=== PATIENT | male | born 1955 | race Caucasian/White ===

== ENCOUNTER → 2020-06-30 08:57 | Outpatient (CLI) | payer OTHER, SELFPAY ==
--- NOTE | ~2020-06-30 | XR_ITS ---
EXAMINATION: XR chest 2V 06/30/2020 09:28 INDICATION: Dyspnea. PROCEDURE: 2 view chest COMPARISON: 02/21/2008 FINDINGS: The lungs are clear. The cardiomediastinal silhouette is within normal limits. There are no pleural effusions. There is no pneumothorax suspected. IMPRESSION: 1: NO ACUTE CARDIOPULMONARY DISEASE. Reviewed, dictated and finalized at location A. 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
== END ==
PROVIDERS: Visit Provider Nurse Practitioner Family
DX: R06.00 Dyspnea, unspecified (principal)
CPT/HCPCS: 71046

== ENCOUNTER 2020-06-30 11:27 | Outpatient (NON) | payer OTHER, SELFPAY ==
[2020-07-01 17:19] LABS: SARS-CoV-2 RNA PCR Negative
== END 2020-06-30 11:28 ==
PROVIDERS: Visit Provider Nurse Practitioner Family
DX: R68.89 Other general symptoms and signs (principal); Z20.828 Contact with and (suspected) exposure to other viral communicable diseases
CPT/HCPCS: 87635; C9803; U0003

== ENCOUNTER 2022-10-08 04:47 | Emergency (ER) | payer OTHER, SELFPAY ==
[2022-10-08] VITALS (14 sets, daily range): BP systolic 131–143; BP diastolic 75–86; PULSE 77–106; RESP 12–24; TEMP 36.4; O2SAT 93–98
[2022-10-08 05:24] LABS: Basophils Percent Auto 0.3 % (0.2-1.2); Eosinophils Absolute Auto 0.2 K/mm3 (0-0.3); Eosinophils Percent Auto 1.9 % (0-4.4); Hematocrit 44.7 % (42.0-52.0); Hemoglobin 15.4 g/dL (14.0-18.0); Immature Granulocyte Absolute 0.05 K/mm3 (0.00-0.031); Immature Granulocyte Percent A 0.5 % (0-0.5); Lymphocytes Absolute Auto 2.08 K/mm3 (0.9-3.2); Lymphocytes Percent Auto 21.4 % (18.3-44.2); Mean Corpuscular HGB Conc 34.5 g/dl (32-36); Mean Corpuscular Hemoglobin 31.4 pg (26-34); Mean Platelet Volume 10.5 fl (7.4-10.4); Monocytes Absolute Auto 1.6 K/mm3 (0.1-0.6); Monocytes Percent Auto 16.5 % (2.6-8.5); Neutrophils Absolute Auto 5.8 K/mm3 (1.3-6.7); Neutrophils Percent Auto 59.4 % (45.5-73.1); Platelet Count Result 293 k/mm3 (150-375); Red Blood Count 4.91 M/mm3 (4.6-6.20); Red Cell Distribution Width 13.1 % (11.5-14.5); White Blood Count 9.7 K/mm3 (4.5-10.0)
[2022-10-08] MEDS: ONDANSETRON INJ 4 MG/2 ML VIAL IV PUSH (05:28)
[2022-10-08] MEDS: SODIUM CHLORIDE 0.9% IV 1,000 ML 999 ML IV CONT (05:28)
[2022-10-08 05:33] LABS: Alanine Aminotransferase 40 U/L (6-50); Albumin Level 4.6 g/dL (3.5-5.1); Alkaline Phosphatase 72 U/L (38-126); Anion Gap 10 mmol/L (8-16); Aspartate Amino Transferase 32 U/L (17-59); Bilirubin,Total 1.4 mg/dL (0.2-1.3); Blood Urea Nitrogen 31 mg/dL (9-20); Calcium 8.3 mg/dL (8.4-10.2); Carbon Dioxide 20 mmol/L (22-30); Chloride 102 mmol/L (98-107); Estimated CRCL calculation 49 ml/min; Estimated Glomerular Filt Rate 51; Glucose 147 mg/dL (65-110); Lipase 93 U/L (23-300); Potassium 4.1 mmol/L (3.4-5.0); Sodium 132 mmol/L (137-145)
--- NOTE | 2022-10-08 06:09 | ED.GENADULT ---
HPI - General Adult General Chief complaint: Nausea/Vomiting/Diarrhea Stated complaint: diarrhea Time Seen by Provider: 10/08/22 05:11 History of Present Illness HPI narrative: Patient 66-year-old gentleman who presents the emergency department with chief complaint of nausea vomiting and diarrhea. The patient reports that he started having diarrhea that he ate some cheese pizza then later on ate a fish sandwich from [employer]. The patient states that he has had multiple bouts of diarrhea and has had some nausea and has had a couple bouts of emesis. Related Data Allergies Allergy/AdvReac Type Severity Reaction Status Date / Time erythromycin base Allergy Unknown Unknown Verified 04/20/22 07:58 Review of Systems Review of Systems: A 10 system review of systems was completed on the patient and is negative except for what is stated in the HPI. Nursing and ancillary documentation was reviewed. FORMERLY [facility], [facility] Past Medical History Medical History BMI 31.0-31.9,adult BMI 32.0-32.9,adult Elevated blood pressure reading Screening PSA (prostate specific antigen) Screening, lipid Family History Family History Father Hypertension Family history of malignant neoplasm Carcinoma of colon Mother Macular degeneration Sibling Acute myocardial infarction Other Cerebrovascular accident Diabetes mellitus Family history of coronary artery disease Social History Social History Smoking packs per day: 0.5 Smoking cigarettes per day: 10.0 Years smoked: 5 Smoking pack-years: 2.50 Smoking status: Former smoker Tobacco type: cigarettes Second hand tobacco smoke exposure: No Alcohol intake: current Substance use: never Substance use type: does not use Living arrangements: alone Occupation/Education: occupation 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 HEAD: Normocephalic, atraumatic. EYES: PERRLA and EOMI. ENT: Nares clear, no rhinorrhea or epistaxis. Mucous membranes moist. NECK: Supple. CHEST: Clear to auscultation. No respiratory distress. HEART: Regular rate and rhythm. No murmur heard. Normal peripheral pulses. ABDOMEN: Soft, nontender, nondistended, normal active bowel sounds. EXTREMITIES: Normal range of motion. No edema. SKIN: Warm, dry, no rash. NEURO: No focal deficits. Alert and oriented x3. PSYCH: Normal mood and affect. Course Vital Signs Vital signs: Vital Signs Temperature 36.4 C 10/08/22 04:48 Pulse Rate 106 H 10/08/22 04:48 Respiratory Rate 16 10/08/22 04:48 Blood Pressure 137/81 10/08/22 04:48 Pulse Oximetry 97 10/08/22 04:48 Oxygen Delivery Room Air 10/08/22 04:48 Temperature 36.4 C 10/08/22 04:48 Pulse Rate 86 10/08/22 05:45 Respiratory Rate 19 10/08/22 05:45 Blood Pressure 138/81 10/08/22 05:36 Pulse Oximetry 95 10/08/22 05:45 Oxygen Delivery Room Air 10/08/22 04:48 Medical Decision Making [facility] Narrative Medical decision making narrative: Differential diagnosis includes gastroenteritis, intra-abdominal infection colitis diverticulitis appendicitis. Laboratory studies were obtained which showed a normal white blood cell count electrolytes showed a creatinine of 1.4 bilirubin was slightly elevated. Patient received IV fluids antiemetics This time patient's exam is not consistent with appendicitis laboratory studies showed a normal white blood cell count this also was not pointing toward appendicitis and more inconsistent with acute gastroenteritis. Vital Signs Vital Signs: Vital Signs Temperature 36.4 C 10/08/22 04:48 Pulse Rate 106 H 10/08/22 04:48 Respiratory Rat
== END 2022-10-08 06:50 | disposition home or self-care (01) ==
PROVIDERS: Emergency Provider Emergency Medicine; PCP Family Medicine
DX: K52.9 Noninfective gastroenteritis and colitis, unspecified (principal); Z87.891 Personal history of nicotine dependence
CPT/HCPCS: 36415; 80053; 83690; 85025; 96361; 96374; 99284; J2405; J7030

== ENCOUNTER 2022-11-30 01:02 | Day surgery (SDC) | payer OTHER, SELFPAY ==
[2022-11-16 12:35] VITALS: BMI 32.3
--- NOTE | 2022-11-29 14:39 | PM.HPGS ---
History of Present Illness History of Present Illness Consent: Risks, benefits, and alternatives have been discussed and questions answered. Patient agrees to proceed with procedure. Chief complaint: other fecal abnormalities Narrative: Shukri Smith is a 67 year old male Referred for colon cancer screening. He was found have a positive Cologuard test Review of Systems Review of Systems: All systems reviewed & are unremarkable except as noted in HPI and below PMFSH Past Medical History Medical History BMI 31.0-31.9,adult BMI 32.0-32.9,adult Elevated blood pressure reading Screening PSA (prostate specific antigen) Screening, lipid Family History Family History Father Hypertension Family history of malignant neoplasm Carcinoma of colon Mother Macular degeneration Sibling Acute myocardial infarction Other Cerebrovascular accident Diabetes mellitus Family history of coronary artery disease Social History Social History Smoking packs per day: 0.5 Smoking cigarettes per day: 10.0 Years smoked: 5 Smoking pack-years: 2.50 Smoking status: Never smoker Tobacco type: cigarettes Second hand tobacco smoke exposure: No Alcohol intake: current Alcohol use details: rare Substance use: never Substance use type: does not use Living arrangements: with family Occupation/Education: occupation 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 Gender identity (if verbalized by the patient): Male Spiritual care concerns: No Meds Home Medications and Allergies Home Medications Medication Instructions Recorded Confirmed Type losartan 100 1 tablet PO DAILY #90 tabs 06/30/20 11/16/22 Rx mg-hydrochlorothiazide 25 mg tablet (Hyzaar) valacyclovir 1 gram tablet 2,000 mg PO Q12H #4 tabs 09/10/20 11/16/22 Rx (Valtrex) metoprolol succinate 200 mg See Rx Instructions .Route 08/30/21 11/16/22 Rx tablet,extended release 24 hr .COMPLEX #90 tabs tadalafil 20 mg tablet See Rx Instructions .Route 07/06/22 11/16/22 Rx .COMPLEX #30 tabs ondansetron 4 mg disintegrating 4 mg PO Q8H PRN nausea and 10/08/22 11/16/22 Rx tablet vomiting #10 tabs Allergies Allergy/AdvReac Type Severity Reaction Status Date / Time erythromycin base Allergy Unknown Unknown Verified 11/30/22 09:14 Exam Const: General: alert Orientation/consciousness: patient oriented x3 Resp: Auscultation: clear to auscultation bilaterally Cardio: Rhythm: regular rhythm GI: GI Palp: Yes Soft to palpation and No Tenderness to palpation present (GI) Neuro: General: patient oriented x3 Assessment and Plan Assessment and plan (1) Screening for colon cancer: Code(s): Z12.11 - Encounter for screening for malignant neoplasm of colon Status: Acute Assessment and Plan: Colonoscopy with possible biopsy or polypectomy or cautery or injection of substances. (2) Positive colorectal cancer screening using Cologuard test: Code(s): R19.5 - Other fecal abnormalities Status: Acute
[2022-11-30 09:15] VITALS: BP 143/76; PULSE 81; RESP 20; TEMP 35.7; O2SAT 98
[2022-11-30] MEDS: LACTATED RINGERS 1,000 ML 150 ML IV CONT (09:24)
[2022-11-30 10:44] VITALS: BP 102/52; PULSE 60; RESP 16; O2SAT 94
[2022-11-30 10:54] VITALS: BP 113/50; PULSE 54; RESP 18; O2SAT 98
[2022-11-30 11:04] VITALS: BP 117/78; PULSE 52; RESP 18; O2SAT 98
== END 2022-11-30 11:16 | disposition home or self-care (01) ==
PROVIDERS: PCP Family Medicine; Visit Provider Internal Medicine Gastroenterology
PROC: 0DJD8ZZ Inspection of Lower Intestinal Tract, Via Natural or Artificial Opening Endoscopic (ICD-10-PCS; CPT 45378; principal; 2022-11-30 10:30)
DX: R19.5 Other fecal abnormalities (principal); K57.30 Diverticulosis of large intestine without perforation or abscess without bleeding; K64.8 Other hemorrhoids; R03.0 Elevated blood-pressure reading, without diagnosis of hypertension
CPT/HCPCS: 45378; J2704; J7120

== ENCOUNTER 2023-11-13 11:39 | Outpatient (CLI) | payer MEDICARE, SELFPAY ==
--- NOTE | ~2023-11-13 | XR_ITS ---
Lumbosacral Spine: AP and lateral views Clinical History: Pain Findings: The normal lordotic curve is maintained. The vertebral bodies and posterior elements are i ntact. The intervertebral disc spaces are preserved. Mild to moderate facet arthropathy present, par ticularly the lower lumbar spine. The sacroiliac joints are normally outlined. Impression: Mild to moderate facet joint degenerative changes, as above. Reviewed, dictated and finalized at location M. Impression: Mild to moderate facet joint degenerative changes, as above.
== END 2023-11-13 11:40 | disposition home or self-care (01) ==
LOC: ANHIMG 11:42
PROVIDERS: PCP Family Medicine; Visit Provider Physician Assistant Medical
DX: M54.50 Low back pain, unspecified (principal); M85.88 Other specified disorders of bone density and structure, other site
CPT/HCPCS: 72100

== ENCOUNTER 2024-03-06 13:55 | Outpatient (CLI) | payer MEDICARE, SELFPAY ==
--- NOTE | ~2024-03-06 | MR_ITS ---
EXAMINATION: MR lumbar spine wo con DATE: 03/06/2024 14:27 INDICATION: Radiculopathy, lumbar region. TECHNIQUE: Magnetic resonance imaging (MRI) of the lumbar spine was performed without intravenous con trast. Sequences included sagittal T2-weighted FSE, sagittal T2-weighted FS FSE, sagittal T1-weighted FSE, and axial T2-weighted FSE. COMPARISON: Lumbar spine MRI 04/14/13 FINDINGS: Alignment is normal. There is mild chronic anterior wedging of T11 and T12 vertebral bodies . There is mildly decreased disc height at L4-5 and L5-S1. The distal spinal cord signal intensity is normal. The conus medullaris is at L1-L2. Partially visualized are cysts in the kidneys measuring up to at least 7 cm on the left. The following disc levels are specifically discussed: L1-L2: The disc does not extend beyond the endplate margin. There is moderate right and severe left f acet joint osteoarthritis. There is no neural foraminal stenosis. There is no central canal stenosis. L2-L3: There is a right foraminal protrusion. There is severe right and moderate left facet joint ost eoarthritis. There is mild right neural foraminal stenosis. There is no central canal stenosis. L3-L4: The disc is bulging. There is moderate bilateral facet joint osteoarthritis. There is mild bong ateral neural foraminal stenosis. There is no central canal stenosis. L4-L5: The disc is bulging and has an annular fissure. There is severe bilateral facet joint osteoart hritis. There is mild bilateral neural foraminal stenosis. There is mild central canal stenosis. L5-S1: There is a central protrusion with annular fissure. There is mild bilateral facet joint osteoa rthritis. There is mild left neural foraminal stenosis. There is mild central canal stenosis. IMPRESSION: 1. Mild lumbar spondylosis, worsened from 04/14/2013. Reviewed, dictated and finalized at location A.
== END 2024-03-06 13:56 ==
LOC: GOSHIMG 13:56
PROVIDERS: PCP Anesthesiology Pain Medicine; Visit Provider Anesthesiology Pain Medicine
DX: M47.817 Spondylosis without myelopathy or radiculopathy, lumbosacral region (principal); M54.16 Radiculopathy, lumbar region
CPT/HCPCS: 72148

== ENCOUNTER 2024-04-15 08:26 | Day surgery (SDC) | payer MEDICARE, SELFPAY ==
[2024-04-01 11:18] VITALS: BMI 31.3
--- NOTE | ~2024-04-15 | XR_ITS ---
EXAMINATION: XR fluoroscopy no charge DATE: 04/15/2024 9:25 CDT INDICATION: SHAGGY L3,L4 ,L5 NERVE BLOCK . TECHNIQUE: 10 fluoroscopic images of the lumbar spine were obtained during bilateral L3, L4, and L5 n erve block, performed by Moustapha Jimenez MD. I was not present during the procedure. Fluoroscopy exp osure time was 14.2 seconds. Air Kerma 4.40 mGy. COMPARISON: None FINDINGS/IMPRESSION: Fluoroscopic documentation of bilateral L3, L4, and L5 nerve block. Please refer to the operative not e for complete procedural details . Reviewed, dictated and finalized at location K.
--- NOTE | 2024-04-15 05:46 | WPDHPUPDATE1 ---
History and Physical Update Update Date/Time: 04/15/24 05:46 History and Physical has been reviewed, including an updated exam of the patient. There are NO changes in the patient's condition. Risks, benefits, and alternatives have been discussed and questions answered. Patient agrees to proceed with procedure.
--- NOTE | 2024-04-15 05:47 | W.PM.PROC2 ---
Procedure Note - Detailed Date of Procedure 04/15/24 Pre-op Diagnosis Lumbosacral Spondylosis, chronic low back pain Post-op Diagnosis Same Procedure Performed Diagnostic bilateral Lumbar Medial Branch/Dorsal Ramus Blocks at L3, L4, L5 Treating the bilateralL4-5, L5-S1 Facet Joints Under Fluoroscopic Guidance and with Contrast Control. ( 4 levels blocked). Surgeon Moustapha Jimenez MD Director Of Clinical Education None. Anesthesia Local Description of Procedure INFORMED CONSENT: Risks, benefits and alternatives to the procedure were discussed in detail with the patient who expressed explicit understanding and consent to proceed. Patient was informed verbally and in written form regarding the risks associated with the procedure including the low risk of serious infection, bleeding/bruising, allergic reaction, nerve or organ injury, paralysis, procedural site pain or discomfort, worsening pain and/or mobility, failure to treat and/or disfigurement. The patient expressed explicit understanding and consent to proceed. All materials required for the procedure were available prior to procedure start. Site and side were marked prior to procedure and confirmed in the presence of the patient. PROCEDURE IN DETAIL: The patient was brought to the procedural suite and placed in the prone position. Patient was made comfortable with use of pillows under the head/chest, hips and ankles. Skin overlying the injection site on the affected side(s) was prepared broadly with ChloraPrep applicator and draped in a sterile manner. Aseptic technique was used throughout. The endplates of the vertebral bodies at the site(s) of interest were aligned in the AP view. Ipsilateral oblique angulation was utilized to optimize visualization of the intersection between the superior articulating process and transverse process at each target site. Local anesthesia was established by infiltration with approximately 5 mL of 1% lidocaine via a 1-1/2 inch 27-gauge needle. A 25-gauge 3.5 inch Quincke spinal needle was advanced until the needle tip contacted periosteum at the target site, right L3. Lateral view was utilized to confirm the appropriate placement of the needle tip just anterior to the facet line and superior to the pedicle. In the Lateral view, 0.25 mL of Omnipaque 300 contrast medium was injected after negative aspiration for CSF, blood or other bodily fluid, showing appropriate extra-articular spread of contrast without evidence of intravascular, foraminal or intrathecal placement. A 0.5 mL solution of 0.5% PF bupivacaine was injected after negative repeat aspiration. Appropriate spread of the injectate was confirmed with washout of previously injected contrast. No parasthesias were elicited. Needle was removed completely intact without difficulty. [The same exact procedure was repeated for all remaining levels on the ipsilateral side, right L4, L5 medial branches/dorsal ramus, modified as necessary to accommodate for the new target location with identical findings and results and no evidence of complication.] [The same exact procedure was repeated for all remaining levels on the contralateral side, left L3, L4, L5 medial branches/dorsal ramus, modified as necessary to accommodate for the new target location with identical findings and results and no evidence of complication.] Images were saved and documented in the patient chart. Patient's skin was cleaned and sterile bandage applied. The patient tolerated the procedure well. The patient was transported to the recovery area in stable condition where they were observed for an appropriate amount of time prior to discharge, without evidence of complication. Patient was instructed on the appropriate completion of a pain diary over the next 12-24 hours. The patient was instructed to avoid excessive activity for the next 48 hours, including climbing and frequent use of stairs. Showers only for 48 hours. They were instructed not to drive or operate heavy machinery f
[2024-04-15 08:50] VITALS: BP 132/84; PULSE 59; RESP 16; TEMP 36.9; O2SAT 98
[2024-04-15 09:27] VITALS: BP 147/84; PULSE 64; RESP 14; O2SAT 96
[2024-04-15 09:37] VITALS: BP 181/81; PULSE 68; RESP 13; O2SAT 95
[2024-04-15] MEDS: BUPivacaine HCL 0.5% 10 ML AMP 5 ML INFILTRATE (09:39)
[2024-04-15] MEDS: LIDOCAINE HCL 1% PF INJ 5 ML VIAL 3 ML INFILTRATE (09:39)
[2024-04-15 09:43] VITALS: BP 130/77; PULSE 59; RESP 16; O2SAT 100
== END 2024-04-15 09:56 | disposition home or self-care (01) ==
PROVIDERS: PCP Family Medicine; Visit Provider Anesthesiology Pain Medicine
PROC: (CPT 64493; principal; 2024-04-15 09:30)
DX: M47.817 Spondylosis without myelopathy or radiculopathy, lumbosacral region (principal); M54.59 Other low back pain
CPT/HCPCS: 64493 ×2; 64494 ×2; 99199

== ENCOUNTER 2024-05-27 07:42 | Day surgery (SDC) | payer MEDICARE, SELFPAY ==
[2024-05-15 13:29] VITALS: BMI 31.4
--- NOTE | ~2024-05-27 | XR_ITS ---
EXAMINATION: XR fluoroscopy no charge DATE: 05/27/2024 09:14 INDICATION: Lumbosacral stenosis with radiculopathy. TECHNIQUE: 31 intraoperative fluoroscopic views of the lumbar spine were obtained. I was not present. Fluoroscopy exposure time was 13 seconds. COMPARISON: None. FINDINGS: [place] are seen for right lumbosacral transforaminal epidural steroid injections at L5-S1 and S1-S2. IMPRESSION: 1. Right lumbosacral transforaminal epidural steroid injections at L5-S1 and S1-S2. Reviewed, dictated and finalized at location A. P IMPRESSION: 1. Right lumbosacral transforaminal epidural steroid injections at L5-S1 and S1 -S2.
--- NOTE | 2024-05-27 05:23 | WPDHPUPDATE1 ---
History and Physical Update Update Date/Time: 05/27/24 05:23 History and Physical has been reviewed, including an updated exam of the patient. There are NO changes in the patient's condition. Risks, benefits, and alternatives have been discussed and questions answered. Patient agrees to proceed with procedure.
--- NOTE | 2024-05-27 05:23 | W.PM.PROC2 ---
Procedure Note - Detailed Date of Procedure 05/27/24 Pre-op Diagnosis lumbosacral stenosis with radiculopathy. Post-op Diagnosis Same Procedure Performed Right Lumbosacral Transforaminal Epidural Steroid Injection under Fluoroscopic Guidance and with Contrast Control at L5-S1, S1-S2. Surgeon Moustapha Jimenez MD Anesthesia Local Description of Procedure INFORMED CONSENT: Risks, benefits and alternatives to the procedure were discussed in detail with the patient who expressed explicit understanding and consent to proceed. Patient was informed verbally and in written form regarding the risks associated with the procedure including the low risk of serious infection, bleeding/bruising, allergic reaction, nerve or organ injury, paralysis, procedural site pain or discomfort, worsening pain and/or mobility, failure to treat and/or disfigurement. The patient expressed explicit understanding and consent to proceed. All materials required for the procedure were available prior to procedure start. Site and side was marked prior to procedure and confirmed in the presence of the patient. PROCEDURE IN DETAIL: The patient was brought to the procedural suite and placed in the prone position. Patient was made comfortable with use of pillows under the head/chest, hips and ankles. Skin overlying the injection site was prepared broadly with ChloraPrep applicator and draped in a sterile manner. Aseptic technique was employed throughout. The endplates of the vertebral body at the site of interest were aligned in the AP view. Ipsilateral oblique angulation was utilized to better visualize the neuroforamen of interest. Local anesthesia was established by infiltration with approximately 5 mL of 0.5% PF lidocaine via a 1-1/2 inch 27-gauge needle. A 22-gauge 3.5 inch Katie (pencil point) spinal needle was advanced until the needle approached the 6 o'clock position on the pedicle just superior to the exiting nerve root. on the right at L5-S1. Lateral view was utilized to confirm appropriate position of the needle tip within the superior and posterior portion of the respective foramen. In an AP view, 1 mL of Omnipaque 300 contrast medium was injected after negative aspiration for CSF, blood or other bodily fluid, showing appropriate neurogram without evidence of intravascular or intrathecal spread of contrast. Digital subtraction imaging was used with an additional 1ml of the same contrast medium to confirm absence of intravascular contrast spread. A 1mL solution containing 3 mg of betamethasone was injected after negative repeat aspiration. Appropriate spread of the injectate was confirmed with washout of previously injected contrast. No parasthesias were elicited. Needle was removed completely intact without difficulty. The same exact procedure was repeated for all remaining levels on the ipsilateral side, right S1-S2 neuroforamen, modified as necessary to accommodate for the new target location with identical findings and results and no evidence of complication. Images were saved and documented in the patient chart. Patient's skin was cleaned and sterile bandage applied. The patient tolerated the procedure well. The patient was transported to the recovery area in stable condition where they were observed for an appropriate amount of time prior to discharge, without evidence of complication. The patient was instructed to avoid excessive activity for the next 48 hours, including climbing and frequent use of stairs. Showers only for 48 hours. They were instructed not to drive or operate heavy machinery for 24 hours. They are to monitor for severe headaches, fevers, chills, night sweats, erythema/swelling at the site or any other signs of infection, bleeding/bruising, bowel or bladder changes as well as new pain, weakness or numbness in the upper or lower extremity. Should they notice these changes, they are instructed to call our office immediately or report directly to the nearest Emergency Department if no answer or if after posted office hours. COMPLICATIONS: None COMMENTS: None CONTRAST WASTED: 26 mL Omnipaque 300. STEROID WASTED: 0 mg of betamethasone. Complications No immediate complications Condition Stable Disposition Same day [facility] Billing Surgery - Charge Forward: Surgery Billing
[2024-05-27 08:53] VITALS: BP 114/95; PULSE 55; RESP 12; TEMP 36.6; O2SAT 98
[2024-05-27 09:05] VITALS: BP 155/85; PULSE 66; RESP 20; O2SAT 99
[2024-05-27 09:11] VITALS: BP 140/79; PULSE 65; RESP 16; O2SAT 97
[2024-05-27] MEDS: BETAMETHASONE SODIUM PHOSPHATE PF INJ 6 MG/ML VIAL INFILTRATE (09:11)
[2024-05-27 09:15] VITALS: BP 122/69; PULSE 56; RESP 15; O2SAT 100
[2024-05-27] MEDS: LIDOCAINE HCL 2% PF INJ 5 ML VIAL 1 ML INFILTRATE (09:15)
[2024-05-27] MEDS: LIDOCAINE HCL 1% PF INJ 5 ML VIAL XX (09:16)
== END 2024-05-27 09:48 | disposition home or self-care (01) ==
PROVIDERS: PCP Family Medicine; Visit Provider Anesthesiology Pain Medicine
PROC: (CPT 64483; principal; 2024-05-27 09:30)
DX: M48.07 Spinal stenosis, lumbosacral region (principal); M54.17 Radiculopathy, lumbosacral region
CPT/HCPCS: 64483; 64484; 99199

== ENCOUNTER 2024-06-03 07:45 | Outpatient (CLI) | payer MEDICARE, SELFPAY ==
--- NOTE | ~2024-06-03 | MR_ITS ---
EXAMINATION: MR pelvis wo/w con DATE: 06/03/2024 08:36 INDICATION: Pelvic and perineal pain TECHNIQUE: Magnetic resonance imaging (MRI) of the pelvis was performed without and with 17 mL Multih ance intravenous contrast. Sequences included axial, sagittal and coronal T1-weighted FSE, axial and coronal T2-weighted FS FSE, axial T1-weighted FS FSE and postcontrast axial, sagittal and coronal T1- weighted FS FSE. COMPARISON: None. FINDINGS: There are T2 hyperintense nonenhancing cysts at the lower poles of both kidneys largest incompletely visualized eccentric cyst at the lower pole the right kidney measuring at least 8.8 cm. There are mul tiple colonic diverticula. There is a short segment of edematous and enhancing wall thickening with s urrounding from trace stranding at the proximal sigmoid colon consistent with diverticulitis. Bladder is normal. Prostatomegaly measuring 4.8 x 4.2 cm. Small right and moderate-sized left fat-containing inguinal hernias. No abscess or free fluid in the pelvis. No pathologically enlarged pelvic or ingui nal lymphadenopathy. Mild lumbar spondylosis. Normal bone marrow signal throughout. IMPRESSION: 1. Radiographically uncomplicated sigmoid diverticulitis. 2. Prostatomegaly. 3. Small right-sided and moderate sized left-sided fat-containing inguinal hernias. Reviewed, dictated and finalized at location B. 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 Radiographically uncomplicated sigmoid diverticulitis. 2. Prostatomegaly. 3. Small right-sided and moderate sized left-sided fat-containing inguinal katie ias.
== END 2024-06-03 07:46 | disposition home or self-care (01) ==
PROVIDERS: PCP Family Medicine; Visit Provider Anesthesiology Pain Medicine
DX: K57.32 Diverticulitis of large intestine without perforation or abscess without bleeding (principal); N40.0 Benign prostatic hyperplasia without lower urinary tract symptoms; R10.2 Pelvic and perineal pain
CPT/HCPCS: 72197; A9577

== ENCOUNTER 2024-07-07 09:36 | Outpatient (CLI) | payer MEDICARE, SELFPAY ==
--- NOTE | 2024-07-07 11:00 | NEURO_ITS ---
Impression: # Complains of right lower extremity pain. Not diabetic. ? # Normal Nerve Conduction Study including F-waves and good sensory responses. ? # Normal needle/EMG exam without neurogenic changes. ? # Clinical correlation recommended. Nerve Conduction Studies Anti Sensory Summary Table ?Stim Site NR Peak (ms) P-T Amp (?V) Site1 Site2 Delta-P (ms) Dist (cm) Sony (m/s) Left Sup Fibular Anti Sensory (Ant Lat Mall) 14 cm ? 3.3 17.6 14 cm Ant Lat Mall 3.3 16.0 48 Right Sup Fibular Anti Sensory (Ant Lat Mall) 14 cm ? 3.3 18.1 14 cm Ant Lat Mall 3.3 16.0 48 Left Sural Anti Sensory (Lat Mall) Calf ? 3.3 17.6 Calf Lat Mall 3.3 16.0 48 Right Sural Anti Sensory (Lat Mall) Calf ? 3.6 15.5 Calf Lat Mall 3.6 16.0 44 Motor Summary Table ?Stim Site NR Onset (ms) O-P Amp (mV) Site1 Site2 Delta-0 (ms) Dist (cm) Sony (m/s) Left Peroneal Motor (Vastus Med) Ankle ? 3.7 3.4 Popit Ankle 7.8 42.0 54 Popit ? 11.5 3.3 Right Peroneal Motor (Vastus Med) Ankle ? 3.8 3.6 Popit Ankle 8.1 39.0 48 Popit ? 11.9 3.5 Left Tibial Motor (Abd Harvey Brev) Ankle ? 3.9 2.4 Knee Ankle 7.6 39.0 51 Knee ? 11.5 2.4 Right Tibial Motor (Abd Harvey Brev) Ankle ? 3.9 5.4 Knee Ankle 7.9 40.0 51 Knee ? 11.8 4.5 F Wave Studies ?NR F-Lat (ms) L-R F-Lat (ms) Left Peroneal (Mrkrs) (EDB) ? 48.32 0.98 Right Peroneal (Mrkrs) (EDB) ? 47.34 0.98 Left Tibial (Mrkrs) (Abd Hallucis) ? 49.45 0.42 Right Tibial (Mrkrs) (Abd Hallucis) ? 49.03 0.42 EMG ?Side Muscle Nerve Root Ins Act Fibs Amp Dur Recrt Comment Right AntTibialis Dp Br Fibular L4-5 Nml Nml Nml Nml Nml Right Gastroc Tibial S1-2 Nml Nml Nml Nml Nml Right Fibularis Long Sup Br Fibular L5-S1 Nml Nml Nml Nml Nml Right Flex Dig Long Tibial L5-S2 Nml Nml Nml Nml Nml Right Ext Dig Brev Dp Br Fibular L5, S1 Nml Nml Nml Nml Nml Right QuadratusFem QuadFemoris L4-5, S1 Nml Nml Nml Nml Nml Left AntTibialis Dp Br Fibular L4-5 Nml Nml Nml Nml Nml Left Gastroc Tibial S1-2 Nml Nml Nml Nml Nml Left Fibularis Long Sup Br Fibular L5-S1 Nml Nml Nml Nml Nml Left Flex Dig Long Tibial L5-S2 Nml Nml Nml Nml Nml Left Ext Dig Brev Dp Br Fibular L5, S1 Nml Nml Nml Nml Nml Left QuadratusFem QuadFemoris L4-5, S1 Nml Nml Nml Nml Nml MTDD
== END 2024-07-07 09:37 | disposition home or self-care (01) ==
PROVIDERS: PCP Family Medicine; Visit Provider Anesthesiology Pain Medicine
DX: M54.16 Radiculopathy, lumbar region (principal)
CPT/HCPCS: 95886; 95910

== ENCOUNTER 2024-07-22 06:45 | Day surgery (SDC) | payer MEDICARE, SELFPAY ==
[2024-06-25 13:01] VITALS: BMI 29.7
[2024-07-03 13:28] VITALS: BMI 29.9
--- NOTE | ~2024-07-22 | XR_ITS ---
XR fluoroscopy no charge Indication: Right sacroiliac joint steroid injection TECHNIQUE: Fluoroscopy used during Right sacroiliac joint steroid injection performed by [Avery Jimenez MD] on 05/27/2024. 8 seconds of fluoroscopy with 3 fluoroscopic images captured. FINDINGS: Correlate with procedure note. IMPRESSION: Fluoroscopy used during Right sacroiliac joint steroid injection. Reviewed, dictated and finalized at location B. 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
--- NOTE | 2024-07-22 06:32 | P.HP_ITS ---
History of Present Illness History of Present Illness Consent: Risks, benefits, and alternatives have been discussed and questions answered. Patient agrees to proceed with procedure. Chief complaint: Sacroiliitis, chronic low back pain Narrative: Shukri Smith is a 68 year old male with chronic, recalcitrant and disabling left lumbosacral back pain secondary to degenerative spondylosis with failure to respond to aggressive conservative measures including PT, oral and topical analgesics, opioid and nonopioid analgesics, rest, time and activity/behavioral modification over the past 1-2 years who presents for diagnostic/ therapeutic intra-articular SI joint steroid injection with local anesthetic under fluoroscopic guidance and with contrast control. Review of Systems Review of Systems: Patient denies any new infectious, allergic, cardiopulmonary, neurologic or constitutional symptoms or changes in activity tolerance or exercise capacity including new or progressive SOB/PARSON, peripheral edema, productive cough, dysuria, nausea/vomiting, diarrhea, weight change, fevers/chills/night sweats, new or progressive neurologic deficit, cognitive or mood changes since last seen, except as documented in the HPI. All systems reviewed & are unremarkable except as noted in HPI and below PMFSH Past Medical History Medical History Benign mole Cerumen in auditory canal on examination Elevated blood pressure reading Lumbar back pain Obstructive sleep apnea (adult) (pediatric) Positive colorectal cancer screening using Cologuard test Scalp irritation Screening for colon cancer Screening PSA (prostate specific antigen) Screening, lipid Skin cancer screening Tonsillectomy planned Surgical History Surgical History History of colonoscopy Hx of hernia repair Hx of shoulder surgery Family History Family History Father Hypertension Family history of malignant neoplasm Carcinoma of colon Mother Macular degeneration Sibling Acute myocardial infarction Other Cerebrovascular accident Diabetes mellitus Family history of coronary artery disease Social History Social History Smoking packs per day: 0.5 Smoking cigarettes per day: 10.0 Years smoked: 10 Smoking pack-years: 5.00 Smoking status: Former smoker Tobacco type: cigarettes Second hand tobacco smoke exposure: Yes Additional smoking assessment comments: USED TO SMOKE SOCIALLY Alcohol intake: current Alcohol use details: rarely Substance use: never Substance use type: does not use Do You Feel Safe in your Home?: Yes Lack of Transportation: No Lack of Food: Never True Current Housing: I Have Housing Concerned About Future Housing: No Difficulty Paying Gas/Electric Bills: No Difficulty Paying for Meds: No Currently Unemployed: No Education: High School Diploma/GED Difficulty w/ Childcare or Family Care: No Living arrangements: with family Occupation/Education: retired 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 Gender identity (if verbalized by the patient): Male Spiritual care concerns: No Meds Home Medications and Allergies Home Medications ?Medication ?Instructions ?Recorded ?Confirmed ?Type losartan 100 1 tablet PO DAILY #90 tabs 06/30/20 07/03/24 Rx mg-hydrochlorothiazide 25 mg tablet (Hyzaar) Tylenol Extra Strength 1,000 mg PO TID PRN Pain 04/01/24 07/03/24 History diclofenac sodium 1 % topical gel 2 g topical QID PRN Pain 05/15/24 07/03/24 History metoprolol succinate 200 mg 200 mg PO DAILY 05/15/24 07/03/24 History tablet,extended release 24 hr amlodipine 5 mg tablet 5 mg PO DAILY #90 tabs 05/26/24 07/03/24 Rx doxycycline hyclate 100 mg tablet See Rx Instructions .Route 07/14/24 Rx .COMPLEX #14 tabs Allergies Allergy/AdvReac Type Severity Reaction Status Date / Time erythromycin base Allergy Severe Swelling Verified 07/03/24 13:27 of Lip/Tongue/Throat Exam Narrative: The patient's physical exam is essentially unchanged from prior examination on 06/16/2024. Specifically, patient demonstrates normal lung capacity, tidal volume and respiratory rate without wheezes, crackles, rales or rubs. Heart rate and rhythm are regular without murmurs, gallops or rubs. No JVD. Pulses 2+ globally without increasing peripheral edema. AAOx3 with no evidence of confusion, intoxication or altered mental state, NC/AT without acute distress or altered consciousness. Speech, cognition, mood, insight and judgment at baseline and within normal limits. Assessment and Plan Assessment and plan (1) Sacroiliitis: Code(s): M46.1 - Sacroiliitis, not elsewhere classified Status: Acute (2) Lumbar back pain: Code(s): M54.50 - Low back pain, unspecified Status: Acute Plan proceed as planned with intra-articular steroid injection of the left SI joint under fluoroscopic guidance with contrast control
--- NOTE | 2024-07-22 06:35 | WPDHPUPDATE1 ---
History and Physical Update Update Date/Time: 07/22/24 06:35 History and Physical has been reviewed, including an updated exam of the patient. There are NO changes in the patient's condition. Risks, benefits, and alternatives have been discussed and questions answered. Patient agrees to proceed with procedure.
--- NOTE | 2024-07-22 06:35 | W.PM.PROC2 ---
Procedure Note - Detailed Date of Procedure 07/22/24 Pre-op Diagnosis Sacroiliitis, chronic low back pain Post-op Diagnosis Same Procedure Performed Right Sacroiliac Joint Steroid Injection under Fluoroscopic Guidance and with Contrast Control. Surgeon Moustapha Jimenez MD Straddle Truck Driver None Anesthesia Local Description of Procedure INFORMED CONSENT: Risks, benefits and alternatives to the procedure were discussed in detail with the patient who expressed explicit understanding and consent to proceed. Patient was informed verbally and in written form regarding the risks associated with the procedure including the low risk of serious infection, bleeding/bruising, allergic reaction, nerve or organ injury, paralysis, procedural site pain or discomfort, worsening pain and/or mobility, failure to treat and/or disfigurement. The patient expressed explicit understanding and consent to proceed. All materials required for the procedure were available prior to procedure start. Site and side were marked prior to procedure and confirmed in the presence of the patient. PROCEDURE IN DETAIL: The patient was brought to the procedural suite and placed in the prone position. Patient was made comfortable with use of pillows under the head/chest, hips and ankles. Skin overlying the injection site on the affected side(s) was prepared broadly with ChloraPrep applicator and draped in a sterile manner. Aseptic technique was used throughout. The right SI joint was identified in the AP view and contralateral oblique angulation with caudal tilt was utilized to optimize visualization of the inferior and medial joint line representing the posterior portion of the joint. Local anesthesia was established by infiltration with approximately 5 mL of 2% lidocaine via a 1-1/2 inch 27-gauge needle. A 22-gauge 3.5 inch Quincke spinal needle was advanced until the needle entered the inferior third of the joint space approximately 1cm cephalad from its most inferior point. In the AP view, 0.5 mL of Omnipaque 300 contrast medium was injected after negative aspiration for CSF, blood or other bodily fluid, showing appropriate intra-articular spread of contrast without evidence of intravascular, perineural or intrathecal placement. A 1.5 mL solution containing 6 mg of betamethasone in 0.5% PF bupivacaine was injected after repeat negative aspiration. Appropriate spread of the injectate was confirmed with washout of previous injected contrast. No parasthesias were elicited. Needle was removed completely intact without difficulty. Images were saved and documented in the patient chart. Patient's skin was cleansed and sterile bandage applied. The patient tolerated the procedure well. The patient was transported to the recovery area in stable condition where they were observed for an appropriate amount of time prior to discharge, without evidence of complication. The patient was instructed to avoid excessive activity for the next 48 hours, including climbing and frequent use of stairs. Showers only for 48 hours. They were instructed not to drive or operate heavy machinery for 24 hours. They are to monitor for severe headaches, fevers, chills, night sweats, erythema/swelling at the site or any other signs of infection, bleeding/bruising, bowel or bladder changes as well as new pain, weakness or numbness in the upper or lower extremity. Should they notice these changes, they are instructed to call our office immediately or report directly to the nearest Emergency Department if no answer or if after posted office hours. COMPLICATIONS: None COMMENTS: None CONTRAST WASTED: 29.5mL Omnipaque 300. Complications No immediate complications Condition Stable Disposition Same day [facility] Billing Surgery - Charge Forward: Surgery Billing
[2024-07-22 07:12] VITALS: BP 124/73; PULSE 60; RESP 16; TEMP 36.6; O2SAT 99
[2024-07-22 08:15] VITALS: BP 131/69; PULSE 62; RESP 16; O2SAT 96
[2024-07-22] MEDS: BUPivacaine HCL 0.5% 10 ML AMP INFILTRATE (08:22)
[2024-07-22 08:23] VITALS: BP 129/74; PULSE 60; RESP 12; O2SAT 97
[2024-07-22] MEDS: BETAMETHASONE SODIUM PHOSPHATE PF INJ 6 MG/ML VIAL INFILTRATE (08:25)
[2024-07-22 08:27] VITALS: BP 123/67; PULSE 60; RESP 18; O2SAT 100
[2024-07-22] MEDS: LIDOCAINE 1% PF INJ 5 ML VIAL 1 ML AFFCTD EYE (08:27)
--- OUTSIDE RECORDS SUMMARY | 2024-07-28 16:25 | XMS_ITS ---
Author Name [facility] [facility] [place] Address [address] [place] [address] Care Team Providers Care Worm Farmer Name Role Phone FREDDIE ALEXISICA Primary Care Provider Unavailabl e Insurance Providers: All historical and current Section Date Range: From patient's date of to the date document was created. This section includes the names of all active insurance providers for the patient. Insurance Provider Type of Coverage Plan Name Start of Policy Coverage End of Policy Coverage Group Number Member ID Insurance Provider's Telephone Number Policy Harris's Name Patient's Relationship to Policy Harris [facility] (WNR) MEDICARE ADVANTAGE [facility] (WNR) Jul 16, 2023 [id number] CARRIL,TH OMAS PATIENT [employer] ([employer]) PRESCRIPT ION VNA PPO ACTIV E Feb 13, 2018 [id number] [id number] [phone] CARRIL,TH OMAS PATIENT [facility] VEOLI A Jul 16, 2018 [id number] [phone] CARRIL,TH OMAS PATIENT Selected Encounter This section includes the information on record at [place] for the Encounter. Date/Time Encounter Type Encounter Description Reason Pro vider Source Aug 16, 2023 09:48 AM Outpatient Encounter ADMIN PAT ACTIVTIES ([facility]) [facility] Encounter Template Text not used by [place] Plan of Treatment: Future Appointments (+ 6 months) and Future Tests (+/- 45 days) The Plan of Treatment section includes future care activities for the patient from all [facility] treatment[facility]. This section includes future appointments and future orders which are active, pending or scheduled. Future Appointments This section includes appointments that were scheduled to occur 6 months from the date of the Encounter, up to a maximum of 20 appointments. The data comes from all [facility]. Appointment Date/Time Appointment Type Appointme nt Facility Name Aug 21, 2023 11:00 AM AM[facility]UL[facility]ORY - [facility]INE [facility] Aug 24, 2023 07:30 AM AMBULATORY - SURGERY [facility] Oct 18, 2023 11:00 AM AMBULATORY - MEDICINE [facility] Encounter Notes: All associated encounter notes This section contains the clinical notes associated to the Encounter. Date/Time Encounter Note(s) Provider Source Aug 16, 2023 08:48 AM ADMINISTRATIVE NOT E: LOCAL TITLE: CCC: SCHEDULING ADMINISTRATION STANDARD TITLE: ADMINISTRATIVE NOTE DATE OF NOTE: AUG 16, 2023@08:48:18 ENTRY DATE: AUG 16, 2023@08:48:18 AUTHOR: HUAN ROJAS EXP COSIGNER: URGENCY: STATUS: COMPLETED Patient Demographics Patient Name: MAGDALENO GARCIA Patient Primary Phone: [phone] Patient Primary [address] [address] [place] [id number] Patient : 1955 Patient Age: 67 Current Location: [address] [place] [address] Call Back Number: [phone] Caller/Recipient Relation to Patient: Self Administrative Administrative Note Reason: Other Administrative Note Comments: [place] called to schedule an appointment. He has complaints of lightheadedness and dizzy spells. He wanted an appointment with [facility] for tomorrow. No appointments were available. I offered him triage nurse. He refused. He did take the direct # for the triage line in case he needed it prior to the appointment. I have scheduled him for 08/21/23. /veronica/ HUAN ROJAS V15 CCC AMSA Signed: 08/16/2023 08:48 Receipt Acknowledged By: 08/16/2023 08:57 /es/ KEISHA JASON REGISTERED NURSE 08/16/2023 09:04 /es/ ALFONSO ALEXIS MSN,STRATEGIC INTELLIGENCE OFFICER-BC NURSE PRACTITIONER HUAN ROJAS [facility]
--- OUTSIDE RECORDS SUMMARY | 2024-07-28 16:25 | XMS_ITS | Continuity of Care Document ---
Author Name [facility] Organization [facility] Care Team Providers Care Gradall Operator Name Role Phone [facility] Unavailable Unavailable Problems Combined list of problems from Department of Defense and [facility] Affairs facilities. It does not include entries that were removed or entered in error. Problem Status Onset Date Problem Type Date of Resolution Comments Source Chronic kidney disease stage 3A Active Condition [facility] Erectile Dysfunction (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 Bilateral simple and hemorrhagic renal cysts. No suspicious lesions [facility] Obstructive Sleep Apnea of Adult ([facility] [id number]) Active Condition [facility] Osteoarthritis of lumbar spine Active Condition [facility] Pancreatic cyst Active Condition November 29, 2022 Entered By: ALFONSO ALEXIS Comment: MRI 11/2022: pancreatic head and body cysts measuring up to 1 cm. No pancreatic ductal dilation. Follow up pancreatic MRI or CT in 2 years to confirm stability. DUE 11/2024 [facility] Prediabetes ([facility] [id number]) Active Condition [facility] Sensorineural hearing loss, bilateral Active Condition [facility] Steatosis of liver Active Condition [facility] Tinnitus Active Condition [facility] Vitamin D Deficiency (SCT [id number]) Active Condition [facility] Diagnosis: ICD-10-CM H90.3 Sensorineural hearing loss, bilateral Active Diagnosis [facility] Diagnosis: ICD-10-CM I10 Essential (primary) hypertension Active Diagnosis [facility] Diagnosis: ICD-10-CM 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 Diagnosis: ICD-10-CM Z00.00 Encntr for general adult medical exam w/o abnormal findings Active Diagnosis [facility] Diagnosis: ICD-10-CM H81.11 Benign paroxysmal vertigo, right ear Active Diagnosis [facility] Diagnosis: ICD-10-CM H61.23 Impacted cerumen, bilateral Active Diagnosis [facility] Medications Combined list of outpatient medications from Department of Defense and [facility] Affairs facilities.Medications provided include 1) outpatient medications from the last 15 months, and 2) patient-reported medications. Medication Details Route Status Patient Instructions Prescription Expires Prescription Number Last Dispense Date Ordering Provider Order Date Order Qty Source AMLODIPINE BESYLATE 5MG TAB TAKE ONE TABLET BY MOUTH ONCE A DAY ORAL ACTIVE 08/13/2024 [id number] YAZMIN ALEXIS [address] [place] [address] [facility] HYDROCHLORO THIAZIDE 12.5MG/LOSA RTAN POTASSIUM 100MG TAB TAKE 1 TABLET BY MOUTH EVERY MORNING TO LOWER BLOOD PRESSURE ORAL SUSPEND ED 10/18/2024 [id number] 5 YAZMIN ALXEIS [address] [place] [address] [facility]IS[facility] N HYDROCHLORO THIAZIDE 12.5MG/LOSA RTAN POTASSIUM 100MG TAB TAKE 1 TABLET BY MOUTH EVERY MORNING TO LOWER BLOOD PRESSURE ORAL DISCONT INUED 10/14/2023 [id number] 4 YAZMIN ALEXIS [address] [place] [address] [facility]IS[facility] N METOPROLOL SUCCINATE 200MG TAB,SA TAKE ONE TABLET BY MOUTH ONCE A DAY FOR HEART/BL OOD PRESSURE . SWALLOW WHOLE, DO NOT CRUSH OR CHEW (TABLETS MAY BE CUT IN HALF). ORAL SUSPEND ED 10/18/2024 [id number] 5 YAZMIN ALEXIS [address] [place] [address] DIVIS[facility] N METOPROLOL SUCCINATE 200MG TAB,SA TAKE ONE TABLET BY MOUTH ONCE A DAY FOR HEART/BL OOD PRESSURE . SWALLOW WHOLE, DO NOT CRUSH OR CHEW (TABLETS MAY BE CUT IN HALF). ORAL DISCONT INUED 10/14/2023 [id number] 4 YAZMIN ALEXIS 2022 90 [facility] N SILDENAFIL CITRATE 100MG TAB TAKE ONE TABLET BY MOUTH EVERY WEEK NEEDED FOR ERECTILE DYSFUNCT ION (TAKE 60 MINUTES PRIOR TO SEXUAL ACTIVITY ) - LIMIT 6 DOSES PER 30 DAYS ORAL SUSPEND ED 10/18/2024 [id number] 5 YAZMIN ALEXIS 2023 18 [facility] N SILDENAFIL CITRATE 100MG TAB TAKE ONE TABLET BY MOUTH EVERY WEEK NEEDED FOR ERECTILE DYSFUNCT ION (TAKE 60 MINUTES PRIOR TO SEXUAL ACTIVITY ) - LIMIT 4 DOSES PER 30 DAYS ORAL DISCONT INUED 10/14/2023 [id number] YAZMIN ALEXIS 2022 12 [facility] VALACYCLOVI R HCL 500MG TAB TAKE ONE TABLET BY MOUTH TWICE A DAY FOR COLD SORES ORAL ACTIVE 10/18/2024 [id number] 4 YAZMIN ALEXIS 2023 20 [facility] N VALACYCLOVI R HCL 500MG TAB TAKE ONE TABLET BY MOUTH TWICE A DAY FOR COLD SORES ORAL DISCONT INUED 10/14/2023 [id number] 4 YAZMIN ALEXIS 2022 20 [facility] Allergies, Adverse Reactions, Alerts Combined list of allergies from Department of Defense and Veterans Affairs facilities. It does not include entries that were removed or entered in error. Substance Category Reaction Severity Reaction type Status Date Reported Comments Source AMPICILLIN Propensity to adverse reactions to drug (finding) Urticaria active 9 [facility] Immunizations Combined list of available immunizations from the Department of Defense and Veterans Affairs facilities. Immunization Series Date Given Administered By Site Reaction Lot Number CVX Code Drug Jumbo Operator Status Comments Source INFLUENZA, HIGH-DOSE, TRIVALENT, PF 2023 PIPPA HERNANDEZ RIGHT DELTO ID [id number] 135 complet ed [facility] INFLUENZA, HIGH-DOSE, QUADRIVALENT 2022 PIPPA HERNANDEZ LEFT DELTO ID [id number] 197 complet ed [facility] INFLUENZA VACCINE, QUADRIVALENT, ADJUVANTED 2021 205 complet ed [facility] PNEUMOCOCCAL CONJUGATE PCV20, POLYSACCHARID E [id number] CONJUGATE, ADJUVANT, PF 2021 216 complet ed [facility] N ZOSTER RECOMBINANT 2 2021 187 complet ed [facility] N ZOSTER RECOMBINANT 1 2020 187 complet ed [facility] ([employer]), MRNA, LNP-S, PF, 30 MCG/0.3 ML DOSE 3 2020 208 complet ed PFR; [id number]; 1 [facility]-19 ([employer]), MRNA, LNP-S, PF, 30 MCG/0.3 ML DOSE 2 2020 208 complet ed PFR; [id number]; 1 [facility] COVID-19 ([employer]), MRNA, LNP-S, PF, 30 MCG/0.3 ML DOSE 1 2020 208 complet ed PFR; [id number]; 1 [facility] INFLUENZA, UNSPECIFIED FORMULATION 2018 88 complet ed [facility] Results Combined list of recent chemistry, hematology and other laboratory results from Department of Defense and Veterans Affairs, ranging from 15 months to all on record, depending upon the facility. Order Name Results Value Reference Range Date Interpretation Specimen Comments Source MICRAL/CR EAT PROFILE (STL) ALBUMIN [MASS/VOLUM E] IN URINE 7 mg/L 10/17 Specimen Type: URINE No comment entered. Ordering Provider: FREDDIE ALEXIS Report Released Date/Time: Oct 18, 2023 11:22 AM Reporting Lab: [facility] [place] [address] Performing Lab: [facility] #[address] [facility] MICRAL/CR EAT PROFILE (STL) ALBUMIN/CRE ATININE [MASS RATIO] IN URINE 5 mg/g 0 - 29 10/17 Specimen Type: URINE No comment entered. Ordering Provider: FREDDIE ALEXIS Report Released Date/Time: Oct 18, 2023 11:22 AM Reporting Lab: [facility] [place] [address] Performing Lab: [facility] [facility] MICRAL/CR EAT PROFILE (STL) CREATININE [MASS/VOLUM E] IN URINE 143.3 mg/dL 63.0 - 166.0 10/17 Specimen Type: URINE No comment entered. Ordering Provider: FREDDIE ALEXIS Report Released Date/Time: Oct 18, 2023 11:22 AM Reporting Lab: [facility] [place] [address] Performing Lab: [facility] [facility] URINALYSI S (STL-PB) COLOR OF URINE Light- Yellow 10/17 Specimen Type: URINE No comment entered. Ordering Provider: FREDDIE ALEXIS Report Released Date/Time: Oct 18, 2023 11:22 AM Reporting Lab: [facility] [place] [address] Performing Lab: [facility] [facility]ISION URINALYSI S (STL-PB) BILIRUBIN.T OTAL [PRESENCE] IN URINE BY TEST STRIP Negati vemg/d L 10/17 Specimen Type: URINE No comment entered. Ordering Provider: FREDDIE ALEXIS Report Released Date/Time: Oct 18, 2023 11:22 AM Reporting Lab: [facility] [place] [address] Performing Lab: [facility] [facility] URINALYSI S (STL-PB) PH OF URINE BY TEST STRIP 6.5 5.0 - 8.0 10/17 Specimen Type: URINE No comment entered. Ordering Provider: FREDDIE ALEXIS Report Released Date/Time: Oct 18, 2023 11:22 AM Reporting Lab: [facility] [place] [address] Performing Lab: [facility] [facility] URINALYSI S (STL-PB) APPEARANCE OF URINE Clear 10/17 Specimen Type: URINE No comment entered. Ordering Provider: FREDDIE ALEXIS Report Released Date/Time: Oct 18, 2023 11:22 AM Reporting Lab: [facility] [place] [address] Performing Lab: [facility] [facility] URINALYSI S (STL-PB) NITRITE [PRESENCE] IN URINE BY TEST STRIP Negati vemg/d L 10/17 Specimen Type: URINE No comment entered. Ordering Provider: FREDDIE ALEXIS Report Released Date/Time: Oct 18, 2023 11:22 AM Reporting Lab: [facility] [place] [address] Performing Lab: [facility] [facility] URINALYSI S (STL-PB) GLUCOSE [MASS/VOLUM E] IN URINE BY TEST STRIP Normal mg/dL 10/17 Specimen Type: URINE No comment entered. Ordering Provider: FREDDIE ALEXIS Report Released Date/Time: Oct 18, 2023 11:22 AM Reporting Lab: [facility] [place] [address] Performing Lab: [facility] [facility] URINALYSI S (STL-PB) PROTEIN [MASS/VOLUM E] IN URINE BY TEST STRIP Negati vemg/d L - 20 10/17 Specimen Type: URINE No comment entered. Ordering Provider: FREDDEI ALEXIS Report Released Date/Time: Oct 18, 2023 11:22 AM Reporting Lab: [facility] [place] [address] Performing Lab: [facility] [facility] URINALYSI S (STL-PB) URN.UROBILI NOGEN Normal mg/dL 10/17 Specimen Type: URINE No comment entered. Ordering Provider: FREDDIE ALEXIS Report Released Date/Time: Oct 18, 2023 11:22 AM Reporting Lab: [facility] [place] [address] Performing Lab: [facility] [facility] URINALYSI S (STL-PB) HEMOGLOBIN [MASS/VOLUM E] IN URINE BY TEST STRIP Negati vemg/d L 10/17 Specimen Type: URINE No comment entered. Ordering Provider: FREDDIE ALEXIS Report Released Date/Time: Oct 18, 2023 11:22 AM Reporting Lab: [facility] [place] [address] Performing Lab: [facility] [facility] URINALYSI S (STL-PB) KETONES [MASS/VOLUM E] IN URINE BY TEST STRIP Negati vemg/d L 10/17 Specimen Type: URINE No comment entered. Ordering Provider: FREDDIE ALEXIS Report Released Date/Time: Oct 18, 2023 11:22 AM Reporting Lab: [facility] [place] [address] Performing Lab: [facility] #[address] URINALYSI S (L-PB) URN.LEUK.ES T. Negati vemg/d L 10/17 Specimen Type: URINE No comment entered. Ordering Provider: FREDDIE ALEXIS Report Released Date/Time: Oct 18, 2023 11:22 AM Reporting Lab: [facility] [place] [address] Performing Lab: [facility] #[address] URINALYSI S (L-PB) SPECIFIC GRAVITY OF URINE 1.017 1.005 - 1.029 10/17 Specimen Type: URINE No comment entered. Ordering Provider: FREDDIE ALEXIS Report Released Date/Time: Oct 18, 2023 11:22 AM Reporting Lab: [facility] [place] [address] Performing Lab: [facility] #[address] B12 COBALAMIN (VITAMIN B12) [MASS/VOLUM E] IN SERUM OR PLASMA >2000p g/mL 213 - 816 10/17 H Specimen Type: SERUM Comment: The listed sex of this patient may not be a typical indication for this test. Therefore, reference ranges or interpretiv e criteria listed may not be valid. Clinical correlation suggested. Ordering Provider: FREDDIE ALEXIS Report Released Date/Time: Oct 18, 2023 11:22 AM Reporting Lab: [facility] [place] [address] Performing Lab: [facility] #[address] FREE T4 (STL) THYROXINE (T4) FREE [MASS/VOLUM E] IN SERUM OR PLASMA 1.00 ng/mL 0.70 - 1.48 10/17 Specimen Type: PLASMA Comment: No hemolysis noted. Ordering Provider: FREDDIE ALEXIS Report Released Date/Time: Oct 18, 2023 11:22 AM Reporting Lab: [facility] [place] [address] Performing Lab: [facility] TSH PANEL (STL) THYROTROPIN [UNITS/VOLU ME] IN SERUM OR PLASMA 1.627 u[IU]/ mL 0.470 - 5.000 10/17 Specimen Type: PLASMA Comment: No hemolysis noted. Ordering Provider: FREDDIE ALEXIS Report Released Date/Time: Oct 18, 2023 11:22 AM Reporting Lab: [facility] [place] [address] Performing Lab: [facility] [address] VITAMIN D, 25-HYDROX Y 25-HYDROXYV ITAMIN D3 [MASS/VOLUM E] IN SERUM OR PLASMA 45.3 ng/mL 30 - 96 10/17 Specimen Type: SERUM Comment: The listed sex of this patient may not be a typical indication for this test. Therefore, reference ranges or interpretiv e criteria listed may not be valid. Clinical correlation suggested. Ordering Provider: FREDDIE ALEXIS Report Released Date/Time: Oct 18, 2023 11:22 AM Reporting Lab: [facility] [place] [address] Performing Lab: [facility] PROST. SPECIFIC AG.(PB-ST L) PROSTATE SPECIFIC AG [MASS/VOLUM E] IN SERUM OR PLASMA 2.379 ng/mL 0.000 - 4.000 10/17 Specimen Type: SERUM Comment: The listed sex of this patient may not be a typical indication for this test. Therefore, reference ranges or interpretiv e criteria listed may not be valid. Clinical correlation suggested. Ordering Provider: FREDDIE ALEXIS Report Released Date/Time: Oct 18, 2023 11:22 AM Reporting Lab: [facility] [place] [address] Performing Lab: [facility] [address] LIPID PANEL (STL) CHOLESTEROL [MASS/VOLUM E] IN SERUM OR PLASMA 172 mg/dL 0 - 200 10/17 Specimen Type: PLASMA Comment: No hemolysis noted. Ordering Provider: FREDDIE ALEXIS Report Released Date/Time: Oct 18, 2023 11:22 AM Reporting Lab: [facility] [place] [address] Performing Lab: [facility] [address] LIPID PANEL (STL) TRIGLYCERID E [MASS/VOLUM E] IN SERUM OR PLASMA 110 mg/dL 0 - 150 10/17 Specimen Type: PLASMA Comment: No hemolysis noted. Ordering Provider: FREDDIE ALEXIS Report Released Date/Time: Oct 18, 2023 11:22 AM Reporting Lab: [facility] [place] [address] Performing Lab: [facility] [address] LIPID PANEL (STL) CHOLESTEROL IN LDL [MASS/VOLUM E] IN SERUM OR PLASMA BY CALCULATION 115 mg/dL 10/17 Specimen Type: PLASMA Comment: No hemolysis noted. Ordering Provider: FREDDIE ALEXIS Report Released Date/Time: Oct 18, 2023 11:22 AM Reporting Lab: [facility] [place] [address] Performing Lab: [facility] [facility] LIPID PANEL (STL) CHOLESTEROL IN HDL [MASS/VOLUM E] IN SERUM OR PLASMA 35 mg/dL 40 10/17 L Specimen Type: PLASMA Comment: No hemolysis noted. Ordering Provider: FREDDIE ALEXIS Report Released Date/Time: Oct 18, 2023 11:22 AM Reporting Lab: [facility] [place] [address] Performing Lab: [facility] DIVISION COMPREHEN SIVE METABOLIC PANEL CREATININE [MASS/VOLUM E] IN SERUM OR PLASMA 1.33 mg/dL 0.70 - 1.30 10/17 H Specimen Type: PLASMA Comment: No hemolysis noted. Ordering Provider: FREDDIE ALEXIS Report Released Date/Time: Oct 18, 2023 11:22 AM Reporting Lab: [facility] [place] [address] Performing Lab: [facility] DIVISION COMPREHEN SIVE METABOLIC PANEL UREA NITROGEN [MASS/VOLUM E] IN SERUM OR PLASMA 20.2 mg/dL 9.0 - 25.0 10/17 Specimen Type: PLASMA Comment: No hemolysis noted. Ordering Provider: FREDDIE ALEXIS Report Released Date/Time: Oct 18, 2023 11:22 AM Reporting Lab: [facility] [place] [address] Performing Lab: [facility] DIVISION COMPREHEN SIVE METABOLIC PANEL GLUCOSE [MASS/VOLUM E] IN SERUM OR PLASMA 110 mg/dL 72 - 99 10/17 H Specimen Type: PLASMA Comment: No hemolysis noted. Ordering Provider: FREDDIE ALEXIS Report Released Date/Time: Oct 18, 2023 11:22 AM Reporting Lab: [facility] [place] [address] Performing Lab: [facility] DIVISION COMPREHEN SIVE METABOLIC PANEL SODIUM [MOLES/VOLU ME] IN SERUM OR PLASMA 138 meq/L 136 - 145 10/17 Specimen Type: PLASMA Comment: No hemolysis noted. Ordering Provider: FREDDIE ALEXIS Report Released Date/Time: Oct 18, 2023 11:22 AM Reporting Lab: [facility] [place] [address] Performing Lab: [facility] DIVISION COMPREHEN SIVE METABOLIC PANEL POTASSIUM [MOLES/VOLU ME] IN SERUM OR PLASMA 4.0 meq/L 3.5 - 5.0 10/17 Specimen Type: PLASMA Comment: No hemolysis noted. Ordering Provider: FREDDIE ALEXIS Report Released Date/Time: Oct 18, 2023 11:22 AM Reporting Lab: [facility] [place] [address] Performing Lab: [facility] DIVISION COMPREHEN SIVE METABOLIC PANEL CHLORIDE [MOLES/VOLU ME] IN SERUM OR PLASMA 107 meq/L 98 - 107 10/17 Specimen Type: PLASMA Comment: No hemolysis noted. Ordering Provider: FREDDIE ALEXIS Report Released Date/Time: Oct 18, 2023 11:22 AM Reporting Lab: [facility] [place] [address] Performing Lab: [facility] DIVISION COMPREHEN SIVE METABOLIC PANEL CARBON DIOXIDE, TOTAL [MOLES/VOLU ME] IN SERUM OR PLASMA 22 meq/L 22 - 31 10/17 Specimen Type: PLASMA Comment: No hemolysis noted. Ordering Provider: FREDDIE ALEXIS Report Released Date/Time: Oct 18, 2023 11:22 AM Reporting Lab: [facility] [place] [address] Performing Lab: [facility] DIVISION COMPREHEN SIVE METABOLIC PANEL CALCIUM [MASS/VOLUM E] IN SERUM OR PLASMA 9.1 mg/dL 8.4 - 10.4 10/17 Specimen Type: PLASMA Comment: No hemolysis noted. Ordering Provider: FREDDIE ALEXIS Report Released Date/Time: Oct 18, 2023 11:22 AM Reporting Lab: [facility] [place] [address] Performing Lab: [facility] DIVISION COMPREHEN SIVE METABOLIC PANEL PROTEIN [MASS/VOLUM E] IN SERUM OR PLASMA 7.2 g/dL 6.0 - 8.6 10/17 Specimen Type: PLASMA Comment: No hemolysis noted. Ordering Provider: FREDDIE ALEXIS Report Released Date/Time: Oct 18, 2023 11:22 AM Reporting Lab: [facility] [place] [address] Performing Lab: [facility] DIVISION COMPREHEN SIVE METABOLIC PANEL ALBUMIN [MASS/VOLUM E] IN SERUM OR PLASMA 4.2 g/dL 3.4 - 5.0 10/17 Specimen Type: PLASMA Comment: No hemolysis noted. Ordering Provider: FREDDIE ALEXIS Report Released Date/Time: Oct 18, 2023 11:22 AM Reporting Lab: [facility] [place] [address] Performing Lab: [facility] DIVISION COMPREHEN SIVE METABOLIC PANEL BILIRUBIN.T OTAL [MASS/VOLUM E] IN SERUM OR PLASMA 0.9 mg/dL 0.2 - 1.2 10/17 Specimen Type: PLASMA Comment: No hemolysis noted. Ordering Provider: FREDDIE ALEXIS Report Released Date/Time: Oct 18, 2023 11:22 AM Reporting Lab: [facility] [place] [address] Performing Lab: [facility] COMPREHEN SIVE METABOLIC PANEL ALKALINE PHOSPHATASE [ENZYMATIC ACTIVITY/VO LUME] IN SERUM OR PLASMA 78 U/L 40 - 150 10/17 Specimen Type: PLASMA Comment: No hemolysis noted. Ordering Provider: FREDDIE ALEXIS Report Released Date/Time: Oct 18, 2023 11:22 AM Reporting Lab: [facility] [place] [address] Performing Lab: [facility] COMPREHEN SIVE METABOLIC PANEL ASPARTATE AMINOTRANSF ERASE [ENZYMATIC ACTIVITY/VO LUME] IN SERUM OR PLASMA 27 U/L 5 - 34 10/17 Specimen Type: PLASMA Comment: No hemolysis noted. Ordering Provider: FREDDIE ALEXIS Report Released Date/Time: Oct 18, 2023 11:22 AM Reporting Lab: [facility] [place] [address] Performing Lab: [facility] DIVISION COMPREHEN SIVE METABOLIC PANEL ALANINE AMINOTRANSF ERASE [ENZYMATIC ACTIVITY/VO LUME] IN SERUM OR PLASMA 42 U/L 8 - 40 10/17 H Specimen Type: PLASMA Comment: No hemolysis noted. Ordering Provider: FREDDIE ALEXIS Report Released Date/Time: Oct 18, 2023 11:22 AM Reporting Lab: [facility] [place] [address] Performing Lab: [facility] DIVISION COMPREHEN SIVE METABOLIC PANEL GLOMERULAR FILTRATION RATE/1.73 SQ M.PREDICTED [VOLUME RATE/AREA] IN SERUM, PLASMA OR BLOOD BY CREATININE- BASED FORMULA (CKD-EPI 2020) 58.59 60 10/17 Specimen Type: PLASMA Comment: No hemolysis noted. Ordering Provider: FREDDIE ALEXIS Report Released Date/Time: Oct 18, 2023 11:22 AM Reporting Lab: [facility] [place] [address] Performing Lab: [facility] CBC LEUKOCYTES [#/VOLUME] IN BLOOD BY AUTOMATED COUNT 10.4 10*3/u L 3.6 - 11.2 10/17 Specimen Type: BLOOD No comment entered. Ordering Provider: FREDDIE ALEXIS Report Released Date/Time: Oct 18, 2023 11:22 AM Reporting Lab: [facility] [place] [address] Performing Lab: [facility] DIVISION CBC ERYTHROCYTE S [#/VOLUME] IN BLOOD BY AUTOMATED COUNT 4.77 10*6/u L 4.10 - 5.70 10/17 Specimen Type: BLOOD No comment entered. Ordering Provider: FREDDIE ALEXIS Report Released Date/Time: Oct 18, 2023 11:22 AM Reporting Lab: [facility] [place] [address] Performing Lab: [facility] DIVISION CBC HEMOGLOBIN [MASS/VOLUM E] IN BLOOD 15.0 g/dL 13.1 - 16.8 10/17 Specimen Type: BLOOD No comment entered. Ordering Provider: FREDDIE ALEXIS Report Released Date/Time: Oct 18, 2023 11:22 AM Reporting Lab: [facility] [place] [address] Performing Lab: [facility] CBC HEMATOCRIT [VOLUME FRACTION] OF BLOOD 42.0 38.2 - 48.4 10/17 Specimen Type: BLOOD No comment entered. Ordering Provider: FREDDIE ALEXIS Report Released Date/Time: Oct 18, 2023 11:22 AM Reporting Lab: [facility] [place] [address] Performing Lab: [facility] [address] CBC MCV [ENTITIC VOLUME] BY AUTOMATED COUNT 88.1 fL 80.0 - 100.0 10/17 Specimen Type: BLOOD No comment entered. Ordering Provider: FREDDIE ALEXIS Report Released Date/Time: Oct 18, 2023 11:22 AM Reporting Lab: [facility] [place] [address] Performing Lab: [facility] [facility] CBC MCH [ENTITIC MASS] BY AUTOMATED COUNT 31.4 pg 27.0 - 34.0 10/17 Specimen Type: BLOOD No comment entered. Ordering Provider: FREDDIE ALEXIS Report Released Date/Time: Oct 18, 2023 11:22 AM Reporting Lab: [facility] [place] [address] Performing Lab: [facility] CBC MCHC [MASS/VOLUM E] BY AUTOMATED COUNT 35.7 g/dL 33.0 - 36.0 10/17 Specimen Type: BLOOD No comment entered. Ordering Provider: FREDDIE ALEXIS Report Released Date/Time: Oct 18, 2023 11:22 AM Reporting Lab: [facility] [place] [address] Performing Lab: [facility] CBC PLATELETS [#/VOLUME] IN BLOOD BY AUTOMATED COUNT 265 10*3/u L 150 - 400 10/17 Specimen Type: BLOOD No comment entered. Ordering Provider: FREDDIE ALEXIS Report Released Date/Time: Oct 18, 2023 11:22 AM Reporting Lab: [facility] [place] [address] Performing Lab: [facility] CBC PLATELET MEAN VOLUME [ENTITIC VOLUME] IN BLOOD BY AUTOMATED COUNT 10.2 fL 7.5 - 11.2 10/17 Specimen Type: BLOOD No comment entered. Ordering Provider: FREDDIE ALEXIS Report Released Date/Time: Oct 18, 2023 11:22 AM Reporting Lab: [facility] [place] [address] Performing Lab: [facility] CBC ERYTHROCYTE DISTRIBUTIO N WIDTH [RATIO] BY AUTOMATED COUNT 12.9 11.8 - 15.1 10/17 Specimen Type: BLOOD No comment entered. Ordering Provider: FREDDIE ALEXIS Report Released Date/Time: Oct 18, 2023 11:22 AM Reporting Lab: [facility] [place] [address] Performing Lab: [facility] CBC LYMPHOCYTES /100 LEUKOCYTES IN BLOOD BY AUTOMATED COUNT 26 10/17 Specimen Type: BLOOD No comment entered. Ordering Provider: FREDDIE ALEXIS Report Released Date/Time: Oct 18, 2023 11:22 AM Reporting Lab: [facility] [place] [address] Performing Lab: [facility] DIVISION CBC MONOCYTES/1 00 LEUKOCYTES IN BLOOD BY AUTOMATED COUNT 8 10/17 Specimen Type: BLOOD No comment entered. Ordering Provider: FREDDIE ALEXIS Report Released Date/Time: Oct 18, 2023 11:22 AM Reporting Lab: [facility] [place] [address] Performing Lab: [facility] DIVISION CBC NEUTROPHILS /100 LEUKOCYTES IN BLOOD BY AUTOMATED COUNT 61 10/17 Specimen Type: BLOOD No comment entered. Ordering Provider: FREDDIE ALEXIS Report Released Date/Time: Oct 18, 2023 11:22 AM Reporting Lab: [facility] [place] [address] Performing Lab: [facility] DIVISION CBC EOSINOPHILS /100 LEUKOCYTES IN BLOOD BY AUTOMATED COUNT 3 10/17 Specimen Type: BLOOD No comment entered. Ordering Provider: FREDDIE ALEXIS Report Released Date/Time: Oct 18, 2023 11:22 AM Reporting Lab: [facility] [place] [address] Performing Lab: [facility] DIVISION CBC BASOPHILS/1 00 LEUKOCYTES IN BLOOD BY AUTOMATED COUNT 1 10/17 Specimen Type: BLOOD No comment entered. Ordering Provider: FREDDIE ALEXIS Report Released Date/Time: Oct 18, 2023 11:22 AM Reporting Lab: [facility] [place] [address] Performing Lab: [facility] DIVISION CBC LYMPHOCYTES [#/VOLUME] IN BLOOD BY AUTOMATED COUNT 2.67 10*3/u L 0.77 - 4.50 10/17 Specimen Type: BLOOD No comment entered. Ordering Provider: FREDDIE ALEXIS Report Released Date/Time: Oct 18, 2023 11:22 AM Reporting Lab: [facility] [place] [address] Performing Lab: [facility] DIVISION CBC MONOCYTES [#/VOLUME] IN BLOOD BY AUTOMATED COUNT 0.87 10*3/u L 0.19 - 0.80 10/17 H Specimen Type: BLOOD No comment entered. Ordering Provider: FREDDIE ALEXIS Report Released Date/Time: Oct 18, 2023 11:22 AM Reporting Lab: [facility] [place] [address] Performing Lab: [facility] DIVISION CBC NEUTROPHILS [#/VOLUME] IN BLOOD BY AUTOMATED COUNT 6.34 10*3/u L 2.10 - 8.00 10/17 Specimen Type: BLOOD No comment entered. Ordering Provider: FREDDIE ALEXIS Report Released Date/Time: Oct 18, 2023 11:22 AM Reporting Lab: [facility] [place] [address] Performing Lab: [facility] DIVISION CBC EOSINOPHILS [#/VOLUME] IN BLOOD BY AUTOMATED COUNT 0.32 10*3/u L 0.00 - 0.60 10/17 Specimen Type: BLOOD No comment entered. Ordering Provider: FREDDIE ALEXIS K Report Released Date/Time: Oct 18, 2023 11:22 AM Reporting Lab: [facility] [place] [address] Performing Lab: [facility]1 [facility] [id number] DIVISION CBC BASOPHILS [#/VOLUME] IN BLOOD BY AUTOMATED COUNT 0.07 10*3/u L 0.00 - 0.20 10/17 Specimen Type: BLOOD No comment entered. Ordering Provider: FREDDIE ALEXIS [facility] Priti Report Released Date/Time: Oct 18, 2023 11:22 AM Reporting Lab: [facility] [place] [address] Performing Lab: [facility] Vital Signs Combined list of inpatient and outpatient Vital Signs from Department of Defense and Veterans Affairs, ranging from 12 months to all on record, depending upon the facility. Vital Sign Value Date Comments Source SYSTOLIC BLOOD PRESSURE 147 05/15/2024 10:12:17 [facility] DIASTOLIC BLOOD PRESSURE 84 05/15/2024 10:12:17 [facility] PULSE OXIMETRY 97 05/15/2024 10:12:17 [facility] WEIGHT 191.1 05/15/2024 10:12:17 [facility] BMI 31kg/m2 05/15/2024 10:12:17 [facility] PAIN 3 05/15/2024 10:12:17 [facility] TEMPERATURE 98.2 05/15/2024 10:12:17 [facility] PULSE 83 05/15/2024 10:12:17 [facility] RESPIRATION 16 05/15/2024 10:12:17 [facility] SYSTOLIC BLOOD PRESSURE 153 10/18/2023 10:53:41 [facility] DIASTOLIC BLOOD PRESSURE 93 10/18/2023 10:53:41 [facility] PULSE OXIMETRY 98 10/18/2023 10:53:41 [place] WEIGHT 206.4 10/18/2023 10:53:[address] [facility] BMI 33kg/m2 10/18/2023 10:53:41 [facility] PAIN 0 10/18/2023 10:53:41 [facility] TEMPERATURE 97.7 10/18/2023 10:53:41 [facility] PULSE 56 10/18/2023 10:53:41 [facility] RESPIRATION 16 10/18/2023 10:53:41 [facility] SYSTOLIC BLOOD PRESSURE 125 08/21/2023 10:55:37 [facility] DIASTOLIC BLOOD PRESSURE 80 08/21/2023 10:55:37 [facility] PULSE OXIMETRY 97% 08/21/2023 10:55:37 [place] [facility] WEIGHT 206.6 08/21/2023 10:55:37 [facility] BMI 33kg/m2 08/21/2023 10:55:37 [facility] PAIN 0 08/21/2023 10:55:37 [facility] HEIGHT 66 08/21/2023 10:55:37 [facility] TEMPERATURE 97.6 08/21/2023 10:55:37 [facility] PULSE 56 08/21/2023 10:55:37 [facility] RESPIRATION 20 08/21/2023 10:55:37 [facility] Encounters Combined list of: 1) Encounters from Department of [facility] Affairs facilities going back up to thelast 18 months. 2) Encounters from the Department of Defense facilities going back up to 280 months. Location Location Details Encounter Type Encounter Number Reason For Visit Attending Provider ADM Date DC Date Status Disposition Source [facility] Outpatient Encounter [id number] 01/29 [facility] Outpatient Encounter [id number] LALITHA JASON 04/05 [facility] Outpatient Encounter [id number] KANU HERNANDEZ IN J 04/10 [facility] Outpatient Encounter [id number] 04/17 [facility] OFFICE O/P EST MOD 30-39 MIN [id number] Diagnos is: ICD-10- CM 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
SEAN ALEXIS K 04/17 [facility] Outpatient Encounter [id number] 05/16 [facility] Outpatient Encounter [id number] 05/28 [facility] OFF/OP EST MAY X REQ PHY/QHP [id number] Diagnos is: ICD-10- CM H61.23 Impacte d misael napier al
KANU HERNANDEZ IN J 06/20 [facility] Outpatient Encounter [id number] 08/16 [facility] OFFICE O/P EST LOW 20 MIN [id number] Diagnos is: ICD-10- CM H81.11 Benign paroxys mal vertigo , right ear<br/ > SEAN ALEXIS K 08/21 [facility] FITTING/CH ECKING [id number] Diagnos is: ICD-10- CM H90.3 Sensori neural hearing loss, bilater al
VEST,NATASHA A 08/24 [facility] TYMPANOMET RY & REFLEX THRESH [id number] Diagnos is: ICD-10- CM H90.3 Sensori neural hearing loss, bilater al
VEST,NATASHA A 08/24 [facility] Outpatient Encounter [id number] LALITHA JASON A 10/11 [facility] OFFICE O/P EST MOD 30 MIN [id number] Diagnos is: ICD-10- CM Z00.00 Encntr for general adult medical exam w/o abnorma l finding s
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
SEAN ALEXISA K 05/15 [facility] HC PRO PHONE CALL 5-10 MIN [id number] Diagnos is: ICD-10- CM I10 Essenti al (primar y) hyperte nsion<b r/> CONDOR,LALITHA ORAH A 05/23 [facility] Outpatient Encounter [id number] CONDOR,LALITHA ORAH A 05/23 [facility] HEAR[facility] A[facility] CHECK BOTH EARS [id number] Diagnos is: ICD-10- CM H90.3 Sensori neural hearing loss, bilater al
NATASHA FROST A 06/23 [facility] N Social History Combined list of available smoking, tobacco, and other social history from Department of Defense and Veterans Affairs facilities. Social History Type Response Date Comment Sour e Tobacco smoking status NHIS [facility] NEVER USED 10/18/2023 [facility] History of tobacco use [place]-[facility]CO FORMER USER 10/13/2022 [facility] History of tobacco use [place]-TO[place]ACCO NEVER USED 10/13/2021 [facility] of [facility] OR MORE 09/22/2020 [facility] Plan of Care List of future care activities from Department of [facility] Affairs facilities. Additional future care activities may be listed in the Assessment and Plan section. Date/Time Care Activity Care Activity Detail Facili ty 11/13/2024 AMBULATORY - MEDICINE AMBULATORY - MEDICI [facility]
--- OUTSIDE RECORDS SUMMARY | 2024-07-28 16:25 | XMS_ITS | Encounter Summary ---
Author Name [facility] ([place] Organization [facility] ([place]) Address [address] [place] [address] Care Team Providers Care Honey Blender Name Role Phone ALFONSO ALEXIS Primary Care Provider Unavailabl e Insurance Providers: [...] Harris's Name Patient's Relationship to Policy Harris [facility] (WNR) MEDICARE ADVANTAGE [facility] (WNR) Jul 16, 2023 [id number] CARRIL,TH OMAS PATIENT [employer] ([employer]) PRESCRIPT ION VNA PPO ACTIV E Feb 13, 2018 UVNAPPO [id number] [phone] CARRIL,TH OMAS PATIENT [facility] VEOLI A Jul 16, 2018 [id number] [phone] CARRIL, OMAS PATIENT Selected Encounter This section includes the information on record at [place] for the Encounter. Date/Time Encounter Type Encounter Description Reason Provider Source Aug 21, 2023 11:00 AM OFFICE O/P EST LOW 20 MIN PRIMARY CARE/MEDICINE ICD-10-CM H81.11 Benign paroxysmal vertigo, right ear ALFONSO ALEXIS IHWilfrido Encounter Template Text not used by [place] Assessments - Encounter Diagnoses This section includes the primary and secondary diagnoses documented for the Encounter. Date/Time Primary/Secondary Diagnosis Diagnosis Name Provider Source Aug 21, 2023 11:22 AM PRIMARY Benign paroxysmal vertigo, right ear ALFONSO ALEXIS [facility] Aug 21, 2023 11:22 AM SECONDARY Essential (primary) hypertension ALFONSO ALEXIS [facility] Plan of Treatment: Future Appointments (+ 6 months) and Future Tests (+/- 45 days) The Plan of Treatment section includes future care activities for the patient from all [place] [facility] This section includes future appointments and future orders which are active, pending or scheduled. Future Appointments This section includes appointments that were scheduled to occur 6 months from the date of the Encounter, up to a maximum of 20 appointments. The data comes from all [place] treatment facilities. Appointment Date/Time Appointment Type Appointme nt Facility Name Aug 24, 2023 07:30 AM AMBULATORY - SURGERY [facility] Oct 18, 2023 11:00 AM AMBULATORY - MEDICINE [facility] Vital Signs: All taken on the encounter date This section contains inpatient and outpatient Vital Signs collected on the date of the Encounter. Date/Time Temperature Pulse Blood Pressure Respiratory Rate SP02 Pain Height Weight Body Mass Index Source Aug 21, 2023 10:55 AM 97.6 F 56 /min 125/80 mm[Hg] 20 /min 97 % 0 66 in 206.6 lb 33 [facility] Social History: Smoking Status (Most current) and Tobacco Use (All prior to encounter date) This section includes the most current, and the historical, smoking and tobacco- related health factors from the [place] facility where the Encounter took place. Current Smoking Status This section includes the most current smoking, or tobacco-related health factor, from the [place] facility where the Encounter took place. Date/Time Current Smoking Status Comment Facil ity Oct 13, 2022 09:00 AM [place]-TOBACCO FORMER USER [facility] Tobacco Use History This section includes a history of the smoking, or tobacco-related health factors, that were collected on or before the date of the Encounter. The data comes from the [place] facility where the Encounter took place. Date/Time Smoking Status/Tobacco Use Comment F acility Oct 13, 2022 09:00 AM [place]-TOBACCO QUIT 15 YRS OR MORE [facility] Oct 13, 2021 10:00 AM VA-TOBACCO NEVER USED [facility] Sep 22, 2020 09:30 AM VA-TOBACCO FORMER USER [facility] Sep 22, 2020 09:30 AM VA-TOBACCO QUIT 15 YRS OR MORE [facility] Encounter Notes: All associated encounter notes This section contains the clinical notes associated to the Encounter. Date/Time Encounter Note(s) Provider Source Aug 21, 2023 11:05 AM PRIMARY CARE NOTE: LOCAL TITLE: PRIMARY CARE PROVIDER ESTABLISHED VISIT ST STANDARD TITLE: PRIMARY CARE NOTE DATE OF NOTE: AUG 21, 2023@11:05 ENTRY DATE: AUG 21, 2023@11:05:54 AUTHOR: ALFONSO ALEXIS EXP COSIGNER: URGENCY: STATUS: COMPLETED REASON FOR VISIT/CHIEF COMPLAINT: vertigo HPI: This is a 67 year old presenting today for an acute visit for dizziness. Saw his outside PCP last month. He was concerned about his blood pressure being elevated; started on an anti-histamine and sent home. Not improving after a week, was seen at Urgent Care and diagnosed with Vertigo. Started Prednisone and meclizine. Was told to double up on his metoprolol Feeling better on the Prednisone, has 1 dose left Denies any URI symptoms or allergic rhinitis SOURCE(S) OF HISTORY: Patient PAST MEDICAL HISTORY: 1) Erectile Dysfunction ([facility] [id number]) 2) HTN - Hypertension ([facility] [id number]) 3) Herpes simplex type 1 infection 4) Obstructive Sleep Apnea of Adult ([facility] [id number]) 5) Vitamin D Deficiency ([facility] [id number]) 6) Prediabetes ([facility] [id number]) 7) Steatosis of liver 8) Multiple renal cysts comment: -CT 11/2021: Numerous bilateral simple cysts comment: MRI 11/2022: . Bilateral simple and hemorrhagic renal cysts. No albert 9) Tinnitus 10) Sensorineural hearing loss, bilateral 11) Chronic kidney disease stage 3A 12) Pancreatic cyst comment: MRI 11/2022: pancreatic head and body cysts measuring up to 1 cm. ALLERGIES: AMPICILLIN ALLERGY REVIEW: Allergy list reviewed and remains current. MEDICATIONS: Active and Recently Outpatient Medications (excluding Supplies): Active Outpatient Medications Status 1) HCTZ 12.5MG/LOSARTAN 100MG TAB TAKE 1 TABLET BY MOUTH ACTIVE EVERY MORNING TO LOWER BLOOD PRESSURE 2) METOPROLOL SUCCINATE 200MG SA TAB TAKE ONE TABLET BY ACTIVE MOUTH ONCE A DAY FOR HEART/BLOOD PRESSURE. SWALLOW WHOLE, DO NOT CRUSH OR CHEW (TABLETS MAY BE CUT IN HALF). 3) SILDENAFIL CITRATE 100MG TAB TAKE ONE TABLET BY MOUTH ACTIVE EVERY WEEK NEEDED FOR ERECTILE DYSFUNCTION (TAKE 60 MINUTES PRIOR TO SEXUAL ACTIVITY) - LIMIT 4 DOSES PER 30 DAYS 4) VALACYCLOVIR HCL 500MG TAB TAKE ONE TABLET BY MOUTH ACTIVE TWICE A DAY FOR COLD SORES MEDICATION RECONCILIATION: completed REVIEW OF SYSTEMS: Constitutional: denies chills, fever, malaise/fatigue, wt gain/loss Respiratory: denies shortness of breath, cough, wheezing, sputum production CV: denies chest pain, palpitations Neuro: denies headaches, weakness, change in sensation, tremor, LOC +vertigo PHYSICAL EXAMINATION: VITALS (most recent, as listed in the electronic record): Temperature: 97.6 F [36.4 C] (08/21/2023 10:55) BP: 125/80 (08/21/2023 10:55) Pulse: 56 (08/21/2023 10:55) Resp: 20 (08/21/2023 10:55) PulsOx: 97% (08/21/2023 10:55) Pain: 0 (08/21/2023 10:55) Weight: Measurement DT WEIGHT LB(KG)[BMI] 08/21/2023 10:55 206.6(93.71)[33*] 04/17/2023 11:06 202.1(91.67)[33*] 10/13/2022 08:40 202.9(92.03)[33*] General: ambulatory male in no acute distress EENT: TMs visible with good like reflex, no pain to manipulation of tragus and no mastoid tenderness Cardiovascular: RRR, no m/r/g. Respiratory: Lungs clear to auscultation Psychiatric: pleasant and cooperative Neurologic: Facial muscles symmetrical, speech clear, motor 5/5, gait steady. Skin; nailbeds pink with quick refill, warm and dry, no suspicious nevi. DATA REVIEW: HGA1C 5.9 % 10/13/2022 09:16 Lipid Panel: TRIGLYCERIDE 128 mg/dL 10/13/2022 09:16 CHOLESTEROL 156 mg/dL 10/13/2022 09:16 HDL(New) 29 L mg/dL 10/13/2022 09:16 CALCULATED LDL 101 mg/dL 10/13/2022 09:16 CMP: SODIUM 139 mEq/L 10/13/2022 09:16 POTASSIUM 3.8 mEq/L 10/13/2022 09:16 CHLORIDE 105 mEq/L 10/13/2022 09:16 UREA NITROGEN 27 H mg/dL 10/13/2022 09:16 CREATININE 1.57 H mg/dL 10/13/2022 09:16 CALCIUM 9.4 mg/dL 10/13/2022 09:16 PROTEIN 7.3 g/dL 10/13/2022 09:16 ALBUMIN 4.1 g/dL 10/13/2022 09:16 ALKALINE PHOSPHATASE 127 U/L 10/13/2022 09:16 ALT/SGPT 56 H U/L 10/13/2022 09:16 AST/SGOT 41 H U/L 10/13/2022 09:16 TOTAL BILIRUBIN 0.4 mg/dL 10/13/2022 09:16 CARBON DIOXIDE 23 mEq/L 10/13/2022 09:16 GLUCOSE 119 H mg/dL 10/13/2022 09:16 EGFR (CKD-EPI 2020) 48.31 10/13/2022 09:16 CBC: WBC 10.8 10*3/uL 10/13/2022 09:16 RBC 4.59 10*6/uL 10/13/2022 09:16 HGB 13.9 g/dL 10/13/2022 09:16 HCT 40.5 % 10/13/2022 09:16 MCV 88.2 fL 10/13/2022 09:16 MCH 30.3 pg 10/13/2022 09:16 MCHC 34.3 g/dL 10/13/2022 09:16 RDW 12.6 % 10/13/2022 09:16 PLT 255 10*3/uL 10/13/2022 09:16 MPV 9.7 fL 10/13/2022 09:16 NEUTROPHILS, AUTO % 63 % 10/13/2022 09:16 LYMPHOCYTES, AUTO % 22 % 10/13/2022 09:16 MONOCYTES, AUTO % 10 % 10/13/2022 09:16 EOSINOPHILS, AUTO % 3 % 10/13/2022 09:16 BASOPHILS, AUTO % 1 % 10/13/2022 09:16 IMMATURE GRANS, AUTO % 0.7 % 10/13/2021 09:38 NEUTROPHILS, ABSOLUTE 6.77 10*3/uL 10/13/2022 09:16 LYMPHOCYTES, ABSOLUTE 2.38 10*3/uL 10/13/2022 09:16 MONOCYTES, ABSOLUTE 1.08 10*3/uL 10/13/2022 09:16 EOSINOPHILS, ABSOLUTE 0.30 10*3/uL 10/13/2022 09:16 BASOPHILS, ABSOLUTE 0.05 10*3/uL 10/13/2022 09:16 IMMATURE GRANS, AUTO ABS 0.08 H 10*3uL 10/13/2021 09:38 PSA: PROST. SPECIFIC AG.(PB-STL) 2.317 ng/mL 10/13/2022 09:16 Result: Acceptable Follow-up Action: Re check prior to next visit. Data results reviewed with patient and/or caregiver. ASSESSMENT/PLAN: 1)Vertigo: improving on prednisone taper, can use meclizine PRN. Push fluids, change positions slowly. 2)HTN: bradycardic today during exam, advised to return to original dosing of the metoprolol. Monitor blood pressure at home and follow up as scheduled in October 2023 RETURN TO CLINIC: PRN or as scheduled SUMMARY STATEMENT: Plan of care has been discussed with including expected therapeutic benefits and potential side effects of prescribed medication and treatments. Gray verbalizes understanding and is in agreement with the plan of care. Patient was instructed to keep all scheduled appointments and contact central aisle cashier for any additional problems. Medication Reconciliation Opt STL: I have reviewed the patient's medication list (including active outpatient prescriptions dispensed from this [facility] (local) and dispensed from another [place] or [facility] facility (remote) as well as inpatient orders (local pending and active), local clinic medications, locally documented non-VA medications, and local prescriptions that have or been discontinued in the past 90 days.) with the patient and/or his/her care-loan manager. Handwritten corrections, additions and/or deletions were made to the list, as appropriate. Corrected Outpatient Medication List was provided to the patient/caregiver. /veronica/ ALFONSO ALEXIS MSN,MATERIALS HANDLING COORDINATOR-BC NURSE PRACTITIONER Signed: 08/21/2023 11:22 ALFONSO ALEXIS [facility] Aug 21, 2023 10:57 AM NURSING NOTE: LOCAL TITLE: V15 PACT FACE TO FACE NOTE STL STANDARD TITLE: NURSING NOTE DATE OF NOTE: AUG 21, 2023@10:57 ENTRY DATE: AUG 21, 2023@10:57:29 AUTHOR: DEVIKA BLAKE EXP COSIGNER: URGENCY: STATUS: COMPLETED Provider Visit: Patient Identifiers : Full Name Date of Reason for visit: Established Follow-Up Mode of Arrival: Ambulatory Allergy Review: AMPICILLIN Allergy list reviewed and remains current. Recent Vital Signs: Temperature: 97.6 F [36.4 C] (08/21/2023 10:55) Pulse: 56 (08/21/2023 10:55) Respiration: 20 (08/21/2023 10:55) B/P: 125/80 (08/21/2023 10:55) Pain: 0 (08/21/2023 10:55) Wt: 206.6 lb [93.71 kg] (08/21/2023 10:55) Ht: 66 in [167.6 cm] (08/21/2023 10:55) BMI: 33.4 POX: 97% (08/21/2023 10:55) Would you like to discuss any personal problem, family problem, alcohol use, drug use, or a mental or emotional illness? No [facility]), please select appointment type: Face to face: Yes- Done Contact provided Primary Care phone number and encouraged to call if any questions or concerns. Review that after hours nurse line [phone] and emergency room are available 05/02 for patient use. Contact verbalized good understanding. Homelessness/Food Insecurity Screen: In the past 2 months, have you been living in stable housing that you own, rent, or stay in as part of a household? Yes - Living in stable housing. Are you worried or concerned that in the next 2 months you may NOT have stable housing that you own, rent, or stay in as part of a household? No - Not worried about housing near future The reports the following: Within the past 12 months, you worried whether your food would run out before you got money to buy more. Never true Within the past 12 months, the food you bought just didn't last and you didn't have money to get more. Never true /es/ DEVIKA BLAKE LPN LICENSED PRACTICAL NURSE Signed: 08/21/2023 11:02 DEVIKA BLAKE [facility]
--- OUTSIDE RECORDS SUMMARY | 2024-07-28 16:26 | XMS_ITS | Encounter Summary ---
Author Name [facility] [place] [facility] Address [address] [place] [address] Care Team Providers Care Regional Economic Liaison Name Role Phone ALEXIS DARCIE Primary Care Provider Unavailabl e Insurance Providers: [...] Harris's Name Patient's Relationship to Policy Harris [facility] (WNR) MEDICARE ADVANTAGE [facility] (WNR) Jul 16, 2023 [id number] CARRIL,TH OMAS PATIENT [employer] ([employer]) PRESCRIPT ION VNA PPO ACTIV E Feb 13, 2018 UVNAPPO 257A [id number] [phone] CARRIL[facility] OMAS [facility] [id number] [phone] CARRIL, OMAS PATIENT Selected Encounter This section includes the information on record at [place] for the Encounter. Date/Time Encounter Type Encounter Description Reason Provider Source May 07, 2024 11:14 AM Outpatient Encounter PRIMARY CARE/MEDICINE JAGDISH SMART Encounter Template Text not used by [place] Plan of Treatment: Future Appointments (+ 6 [...] 20 appointments. The data comes from all [place] treatment facilities. Appointment Date/Time Appointment Type Appointme nt Facility Name May 15, 2024 10:30 AM AMBULATORY - MEDICINE [facility] May 23, 2024 10:30 AM AMBULATORY - MEDICINE [facility] Encounter Notes: All associated encounter notes This section contains the clinical notes associated to the Encounter. Date/Time Encounter Note(s) Provider Source May 07, 2024 11:14 AM NURSING NOTE: LOCAL TITLE: V15 PACT TELEPHONE CONTACT NOTE ST STANDARD TITLE: NURSING NOTE DATE OF NOTE: MAY 07, 2024@11:14 ENTRY DATE: MAY 07, 2024@11:14:33 AUTHOR: JAGDISH SMART EXP COSIGNER: URGENCY: STATUS: COMPLETED Patient/Other contacted: Patient Patient Identifiers : Full Name Date of Appointment Reminder: Outbound call to patient to remind of upcoming: Provider in-person with darcie alexis Appointment is scheduled for: Apr@10:30 Appointment type: In-person, instructed to: Write down any questions you may have to discuss with your provider at your appointment. Bring any forms or non-VA records if needed. Arrive 15 mins early to check-in allowing time for traffic and parking. Take your medicine as you normally would that morning, and bring all your medicine with you to the appointment: this includes any purchased over the counter that you are using. Clinical reminders: No applicable nurse clinical reminders due at the time of this encounter. Encouraged to contact PC Team with questions/concerns or if need to reschedule/cancel appointment. Provided/reviewed the nurse advice line (ext [phone]) for medical needs after hours. Contact understanding verified by teach back: Yes Total time spent on phone: /veronica/ Jagdish Smart LPN LICENSED PRACTICAL NURSE Signed: 05/07/2024 11:15 JAGDISH SMART [facility]
--- OUTSIDE RECORDS SUMMARY | 2024-07-28 16:26 | XMS_ITS | Encounter Summary ---
Author Name Department of [facility] (DC) Organization [facility] ([place]) Address [address] [place] [address] Care Team Providers Care Power System Dispatcher Name Role Phone ALFONSO ALEXIS Primary Care [...] Harris's Name Patient's Relationship to Policy Harris [facility] (WNR) MEDICARE ADVANTAGE [facility] (WNR) Jul 16, 2023 [id number] CARRIL,TH OMAS PATIENT [employer] ([employer]) PRESCRIPT ION VNA PPO ACTIV E Feb 13, 2018 UVNAPPO [id number] [phone] CARRIL,TH OMAS PATIENT [facility] VEOLI A Jul 16, 2018 [id number] [phone] CARRIL, OMAS PATIENT Selected Encounter This section includes the information on record at DC for the Encounter. Date/Time Encounter Type Encounter Description Reason Provider Source Oct 18, 2023 11:00 AM OFFICE O/P EST MOD 30 MIN PRIMARY CARE/MEDICINE ICD-10-CM Z00.00 Encntr for general adult medical exam w/o abnormal findings ALFONSO ALEXIS IHE Encounter Template Text not used by DC Assessments - Encounter Diagnoses This section includes the primary and secondary diagnoses documented for the Encounter. Date/Time Primary/Secondary Diagnosis Diagnosis Name Provider Source Oct 18, 2023 12:20 PM PRIMARY Encntr for general adult medical exam w/o abnormal findings ALFONSO ALEXIS [facility] Oct 18, 2023 12:20 PM SECONDARY Congenital pancreatic cyst ALFONSO ALEXIS [facility] Oct 18, 2023 12:20 PM SECONDARY Cyst of kidney, acquired ALFONSO ALEXIS [facility] Oct 18, 2023 12:20 PM SECONDARY Essential (primary) hypertension ALFONSO ALEXIS [facility] Oct 18, 2023 12:20 PM SECONDARY Fatty (change of) liver, not elsewhere classified ALFONSO ALEXIS [facility] Oct 18, 2023 12:20 PM SECONDARY Herpesviral infection, unspecified ALFONSO ALEXIS [facility] Oct 18, 2023 12:20 PM SECONDARY Male erectile dysfunction, unspecified ALFONSO ALEXIS [facility] Oct 18, 2023 12:20 PM SECONDARY Obstructive sleep apnea (adult) (pediatric) ALFONSO ALEXIS [facility] Oct 18, 2023 12:20 PM SECONDARY Prediabetes ALFONSO ALEXIS [facility] Oct 18, 2023 12:20 PM SECONDARY Vitamin D deficiency, unspecified FREDDIE ALEXISICA Priti [facility] Lab Results: +/- 30 days of the encounter This section includes the Chemistry and Hematology Lab Results on record with DC for the patient. Radiology Reports and Pathology Reports are provided separately, in subsequent sections. Lab Results This section contains the Chemistry/Hematology Results that were resulted 30 days before or 30 daysafter the date of the Encounter. Date/Time Source Result Type Result - Unit Interpretation Reference Range Comment Oct 18, 2023 11:53 AM [facility] MICRAL/CREAT PROFILE (STL) Specimen Type: URINE No comment entered. Ordering Provider: ALFONSO ALEXIS Report Released Date/Time: Oct 18, 2023 11:22 AM Reporting Lab: [facility] [address] [facility] [id number] Performing Lab: [facility] [place] [address] URINE ALBUMIN (PB-STL) 7 mg/L No range refer to micral/crea t ratio uACR (STL) 5 mg/g 0-29 CREATININE URINE/OTHERS 143.3 mg/dL 63.0-166.0 Oct 18, 2023 11:53 AM [facility] URINALYSIS (STL-PB) Specimen Type: URINE No comment entered. Ordering Provider: ALFONSO ALEXIS Report Released Date/Time: Oct 18, 2023 11:22 AM Reporting Lab: [facility] [place] [address] Performing Lab: [facility] [place] [address] URINE COLOR Light-Yellow Yellow U.BILIRUBIN Negative mg/dL Negative U.PH 6.5 5.0-8.0 APPEARANCE Clear Clear U.NITRITE Negative mg/dL Negative URN.GLUCOSE Normal mg/dL Negative URN.PROTEIN Negative mg/dL Negative-20 URN.UROBILINOGE N Normal mg/dL Normal URN.BLOOD Negative mg/dL Negat peggy-Tr jen URN.KETONES Negative mg/dL Neg ative-Tr jen URN.LEUK.EST. Negative mg/dL N egative-Tr jen URN.SPECIFIC GRAVITY 1.017 1.005-1.029 Oct 18, 2023 11:43 AM [facility] B12 Specimen Type: SERUM Comment: The listed sex of this patient may not be a typical indication for this test. Therefore, reference ranges or interpretive criteria listed may not be valid. Clinical correlation suggested. Ordering Provider: ALFONSO ALEXIS Report Released Date/Time: Oct 18, 2023 11:22 AM Reporting Lab: [facility] [place] [address] Performing Lab: [facility] [place] [address] B12 >2000 pg/mL H 213-816 Oct 18, 2023 11:[address] [facility] FREE T4 (STL) Specimen Type: PLASMA Comment: No hemolysis noted. Ordering Provider: ALFONSO ALEXIS Report Released Date/Time: Oct 18, 2023 11:22 AM Reporting Lab: [facility] [place] [address] Performing Lab: [facility] [address] [place] [address] FREE T4 (STL) 1.00 ng/mL 0.70-1.48 Oct 18, 2023 11:43 AM [facility] TSH PANEL (STL) Specimen Type: PLASMA Comment: No hemolysis noted. Ordering Provider: ALFONSO ALEXIS Report Released Date/Time: Oct 18, 2023 11:22 AM Reporting Lab: [facility] [address] [place] [address] Performing Lab: [facility] [place] [address] TSH 1.627 u[IU]/mL 0.470-5.000 Oct 18, 2023 11:43 AM [facility] VITAMIN D, 25-HYDROXY Specimen Type: SERUM Comment: The listed sex of this patient may not be a typical indication for this test. Therefore, reference ranges or interpretive criteria listed may not be valid. Clinical correlation suggested. Ordering Provider: ALFONSO ALEXIS Report Released Date/Time: Oct 18, 2023 11:22 AM Reporting Lab: [facility] [place] [address] Performing Lab: [facility] [address] [place] [address] VITAMIN D, 25-HYDROXY 45.3 ng/mL 30-96 Oct 18, 2023 11:43 AM [facility] PROST. SPECIFIC AG.(PB-STL) Specimen Type: SERUM Comment: The listed sex of this patient may not be a typical indication for this test. Therefore, reference ranges or interpretive criteria listed may not be valid. Clinical correlation suggested. Ordering Provider: ALFONSO ALEXIS Report Released Date/Time: Oct 18, 2023 11:22 AM Reporting Lab: [facility] [place] [address] Performing Lab: [facility] [address] [place] [address] PROST. SPECIFIC AG.(PB-STL) 2.379 ng/mL 0.000-4.000 Oct 18, 2023 11:43 AM [facility] LIPID PANEL (STL) Specimen Type: PLASMA Comment: No hemolysis noted. Ordering Provider: ALFONSO ALEXIS Report Released Date/Time: Oct 18, 2023 11:22 AM Reporting Lab: [facility] [place] [address] Performing Lab: [facility] [address] [place] [address] CHOLESTEROL 172 mg/dL 0-200 TRIGLYCERIDE 110 mg/dL 0-150 CALCULATED LDL 115 mg/dL See Interp HDL(New) 35 mg/dL L > 40 Oct 18, 2023 11:43 AM [facility] COMPREHENSIVE METABOLIC PANEL Specimen Type: PLASMA Comment: No hemolysis noted. Ordering Provider: ALFONSO ALEXIS Report Released Date/Time: Oct 18, 2023 11:22 AM Reporting Lab: [facility] [place] [address] Performing Lab: [facility] [address] [place] [address] CREATININE 1.33 mg/dL H 0.70-1.30 UREA NITROGEN 20.2 mg/dL 9.0-25.0 GLUCOSE 110 mg/dL H 72-99 SODIUM 138 meq/L 136-145 POTASSIUM 4.0 meq/L 3.5-5.0 CHLORIDE 107 meq/L 98-107 CARBON DIOXIDE 22 meq/L 22-31 CALCIUM 9.1 mg/dL 8.4-10.4 PROTEIN 7.2 g/dL 6.0-8.6 ALBUMIN 4.2 g/dL 3.4-5.0 TOTAL BILIRUBIN 0.9 mg/dL 0.2-1.2 ALKALINE PHOSPHATASE 78 U/L 40-150 AST/SGOT 27 U/L 5-34 ALT/SGPT 42 U/L H 8-40 EGFR (CKD-EPI 2020) 58.59 >60 Oct 18, 2023 11:43 AM [facility] CBC Specimen Type: BLOOD No comment entered. Ordering Provider: ALFONSO ALEXIS Report Released Date/Time: Oct 18, 2023 11:22 AM Reporting Lab: [facility] [id number] Performing Lab: [facility] [place] [id number] WBC 10.4 10*3/uL 3.6-11.2 RBC 4.77 10*6/uL 4.10-5.70 HGB 15.0 g/dL 13.1-16.8 HCT 42.0 38.2-48.4 MCV 88.1 fL 80.0-100.0 MCH 31.4 pg 27.0-34.0 MCHC 35.7 g/dL 33.0-36.0 PLT 265 10*3/uL 150-400 MPV 10.2 fL 7.5-11.2 RDW 12.9 11.8-15.1 LYMPHOCYTES, AUTO % 26 MONOCYTES, AUTO % 8 NEUTROPHILS, AUTO % 61 EOSINOPHILS, AUTO % 3 BASOPHILS, AUTO % 1 LYMPHOCYTES, ABSOLUTE 2.67 10*3/uL 0.77-4.50 MONOCYTES, ABSOLUTE 0.87 10*3/uL H 0.19-0.80 NEUTROPHILS, ABSOLUTE 6.34 10*3/uL 2.10-8.00 EOSINOPHILS, ABSOLUTE 0.32 10*3/uL 0.00-0.60 BASOPHILS, ABSOLUTE 0.07 10*3/uL 0.00-0.20 Oct 18, 2023 11:43 AM [facility] HGA1C Specimen Type: BLOOD No comment entered. Ordering Provider: ALFONSO ALEXIS Report Released Date/Time: Oct 18, 2023 11:22 AM Reporting Lab: [facility] [facility] [id number] Performing Lab: [facility] [facility] [id number] HGA1C 5.9 4.0-6.0 Vital Signs: All taken on the encounter date This section contains inpatient and outpatient Vital Signs collected on the date of the Encounter. Date/Time Temperature Pulse Blood Pressure Respiratory Rate SP02 Pain Height Weight Body Mass Index Source Oct 18, 2023 10:58 AM 132/80 [facility] Oct 18, 2023 10:53 AM 97.7 56 153/93 16 98 0 206.4 33 [facility] Social History: Smoking Status (Most current) and Tobacco Use (All prior to encounter date) This section includes the most current, and the historical, smoking and tobacco- related health factors from the DC facility where the Encounter took place. Current Smoking Status This section includes the most current smoking, or tobacco-related health factor, from the [place] facility where the Encounter took place. Date/Time Current Smoking Status Comment Davi skelton Oct 18, 2023 11:00 AM VA-TOBACCO NEVER USED [facility] Tobacco Use History This section includes a history of the smoking, or tobacco-related health factors, that were collected on or before the date of the Encounter. The data comes from the [facility] where the Encounter took place. Date/Time Smoking Status/Tobacco Use Comment F acility Oct 13, 2022 09:00 AM VA-TOBACCO FORMER USER [facility] Oct 13, 2022 09:00 AM VA-TOBACCO QUIT 15 YRS OR MORE [facility] Oct 13, 2021 10:00 AM VA-TOBACCO NEVER USED [facility] Sep 22, 2020 09:30 AM VA-TOBACCO FORMER USER [facility] Sep 22, 2020 09:30 AM VA-TOBACCO QUIT 15 YRS OR MORE [facility] Encounter Notes: All associated encounter notes This section contains the clinical notes associated to the Encounter. Date/Time Encounter Note(s) Provider Source Oct 19, 2023 09:33 AM ADDENDUM: LOCAL TITLE: Addendum STANDARD TITLE: ADDENDUM DATE OF NOTE: OCT 19, 2023@09:33:05 ENTRY DATE: OCT 19, 2023@09:33:06 AUTHOR: KEISHA JASON COSIGNER: URGENCY: STATUS: COMPLETED Called and spoke with patient. Reviewed test results as requested by pcp. Pt agrees to discontinue otc vitamin B12 and declines renal consult. /es/ KEISHA JASON REGISTERED NURSE Signed: 10/19/2023 09:44 Receipt Acknowledged By: 10/19/2023 09:54 /es/ ALFONSO ALEXIS MSN,MUSEUM LIBRARIAN- NURSE PRACTITIONER --- Original Document --- 10/18/23 PRIMARY CARE PROVIDER ESTABLISHED VISIT STL: REASON FOR VISIT/CHIEF COMPLAINT: follow up HPI: This is a 67 year old presenting today for management of chronic disease Has episode of vertigo in August, resolved Plans to retire in Outside Providers: PCP: Dr. Baker Sleep Apnea: The patient IS using their CPAP machine nightly and appears to be well controlled on pressure level. Will send for titration studies periodically or if dramatic change in weight. The patient has been advised that using CPAP regularly can decrease cardiac strain and help to control blood pressure. Hypertension -Patient is here for Hypertension follow up -The blood pressure is well controlled on current medication program with no side effects noted -Current medications: HCTZ 12.5mg/losartan 100mg, metoprolol 200mg -Renal function: CREATININE 1.26 mg/dL 10/13/2021 09:38 EGFR (CKD-EPI 2020) 63.29 10/13/2021 09:38 -Denies any chest pain, shortness of breath, edema, headaches or blurred vision ED: -sildenafil 100mg HSV: -Valacyclovir 500mg BID PRN Vitamin D Def: -28 (09/2021) Prediabetes: -a1c 5.9% (10/2022); 5.9% (09/2021) Hepatic Steatosis: -CT 11/2021: Liver: Diffuse hepatic steatosis is present with sparing along the gallbladder fossa. -MRI 11/2022: diffuse hepatic steatosis Renal Cysts: -CT 11/2021: Numerous bilateral simple cysts. Several hypoattenuating renal lesions do not meet criteria for simple cysts and are indeterminate, as above. MRI would be the next appropriate imaging modality to characterize. No renal calculi or hydronephrosis MRI 11/2022: Bilateral simple and hemorrhagic renal cysts. No suspicious renal lesions are identified. -Consult placed to Renal at previous visit and failed to schedule Hearing Loss/Tinnitus: -established with Audiology, has hearing aids Pancreatic Cyst: -MRI 11/2022: Pancreatic head and body cysts measuring up to 1 cm. No pancreatic ductal dilation. Follow-up pancreatic protocol MRI or CT is advised in 2 years to confirm stability. DUE 11/2024 What is your goal for today: routine visit SOCIAL HISTORY: NICOTINE: None ALCOHOL: None ILLICIT DRUGS: None SOURCE(S) OF HISTORY: Patient PAST MEDICAL HISTORY: 1) Erectile Dysfunction ([facility] [id number]) 2) HTN - Hypertension ([facility] [id number]) 3) Herpes simplex type 1 infection 4) Obstructive Sleep Apnea of Adult ([facility] [id number]) 5) Vitamin D Deficiency ([facility] [id number]) 6) Prediabetes ([facility] [id number]) 7) Steatosis of liver 8) Multiple renal [...] Active and Recently Outpatient Medications (excluding Supplies): Inactive Outpatient Medications Status 1) HCTZ 12.5MG/LOSARTAN 100MG TAB TAKE 1 TABLET BY MOUTH EVERY MORNING TO LOWER BLOOD PRESSURE 2) METOPROLOL SUCCINATE 200MG SA TAB TAKE ONE TABLET BY MOUTH ONCE A DAY FOR HEART/BLOOD PRESSURE. SWALLOW WHOLE, DO NOT CRUSH OR CHEW (TABLETS MAY BE CUT IN HALF). 3) SILDENAFIL CITRATE 100MG TAB TAKE ONE TABLET BY MOUTH EVERY WEEK NEEDED FOR ERECTILE DYSFUNCTION (TAKE 60 MINUTES PRIOR TO SEXUAL ACTIVITY) - LIMIT 4 DOSES PER 30 DAYS 4) VALACYCLOVIR HCL 500MG TAB TAKE ONE TABLET BY MOUTH TWICE A DAY FOR COLD SORES MEDICATION RECONCILIATION: completed REVIEW OF SYSTEMS: Constitutional: denies weight change, fever, chills, diaphoresis, fatigue, malaise, or change in appetite ENT/Mouth: denies hearing changes, ear pain, nasal congestion, sinus tenderness, hoarseness, sore throat, rhinorrhea, swallowing Difficulty, or pnd Eyes: denies eye pain, swelling, redness, foreign Body, drainage,or vision changes Cardiovascular: denies chest pain, No SOB, PARSON, orthopnea, claudication, edema,or palpitations Respiratory: denies SOB, cough, sputum, wheezing, or smoke exposure. Gastrointestinal: denies n/v/d,constipation, abd pain, heartburn, anorexia, dysphagia, hematochezia, melena, or flatulence. Genitourinary: denies dysuria, urinary frequency, hematuria, urinary incontinence, urgency, flank Pain,urinary flow changes, or hesitancy Musculoskeletal: denies arthralgias,myalgias, joint swelling, joint stiffness, back pain, neck pain, or injury Skin: denies new lesions, pruritis, hair changes, or rashes Neuro: denies weakness, numbness, paresthesias, LOC, syncope, dizziness, ZABALA, coordination changes,changes in gait, or recent falls Psych: denies anxiety/panic, depression, insomnia, personality changes, delusions, SI/HI, memory changes, violence/abuse hx., or eating concerns Heme/Lymph: Denies bruising,bleeding, or lymphadenopathy Endocrine: Denies polyuria, polydipsia,or temperature intolerance PHYSICAL EXAMINATION: VITALS (most recent, as listed in the electronic record): Temperature: 97.7 F [36.5 C] (10/18/2023 10:53) BP: 132/80 (10/18/2023 10:58) Pulse: 56 (10/18/2023 10:53) Resp: 16 (10/18/2023 10:53) PulsOx: 98% (10/18/2023 10:53) Pain: 0 (10/18/2023 10:53) Weight: Measurement DT WEIGHT LB(KG)[BMI] 10/18/2023 10:53 206.4(93.62)[33*] 08/21/2023 10:55 206.6(93.71)[33*] 04/17/2023 11:06 202.1(91.67)[33*] General: ambulatory male in no acute distress Eyes: PERRL, sclerae anicteric Musculoskeletal/extremities ; good bulk and tone, trace edema, Pulses 2+ at DP and PT. Cardiovascular: RRR, no m/r/g. Respiratory: Lungs clear to auscultation Abdomen/GI: abdomen soft/non-tender, no mass or organomegaly Hematologic: no bruises noted Lymphatic: no cervical /supraclavicular adenopathy Endocrine: no thyromegaly Psychiatric: pleasant and cooperative Neurologic: Facial muscles [...] BASOPHILS, AUTO % 1 % 10/13/2022 09:16 NEUTROPHILS, ABSOLUTE 6.77 10*3/uL 10/13/2022 09:16 LYMPHOCYTES, ABSOLUTE 2.38 10*3/uL 10/13/2022 09:16 MONOCYTES, ABSOLUTE 1.08 10*3/uL 10/13/2022 09:16 EOSINOPHILS, ABSOLUTE 0.30 10*3/uL 10/13/2022 09:16 BASOPHILS, ABSOLUTE 0.05 10*3/uL 10/13/2022 09:16 PSA: PROST. SPECIFIC AG.(PB-STL) 2.317 ng/mL 10/13/2022 09:16 Result: Acceptable Follow-up Action: Re check prior to next visit. Data results reviewed with patient and/or caregiver. ASSESSMENT/PLAN: 1)Annual (Male)-The patient was counseled regarding the appropriate use of alcohol, screening procedures and recommended schedule for colonoscopy, psa, cholesterol, thyroid and diabetes screening, prevention of dental and periodontal disease, diet, regular sustained exercise for at least 30 minutes 3- 4 times per week, prostate cancer screening, regular use of seat belts. Recommend dilated eye exam and glaucoma screening every 2 years or as indicated by ophthalmology 2)VONDA: compliant with CPAP 3)HTN: blood pressure controlled on current medications, monitor blood pressure at home and report abnormal readings. DASH diet. Trend renal function. Goal <130/80 4)Erectile Dysfunction: Continue current medications on as needed basis. The patient's symptoms of erectile dysfunction are stable at this point. If medications fail to give desired effect, will refer to urology or consider alternative treatments. 5)Herpes: At this time, the patient's outbreaks are stables. Continue current medications. Encouraged the patient to continue limiting exposure to others,especially when outbreak is present. 6)Vitamin D Def: repeat levels today, will start daily supplementation as needed 7)Prediabetes: repeat a1c, encouraged diet and exercise 8)Hepatic Steatosis: trend LFT's, encouraged diet and exercise 9)Renal Cysts: declines renal at this time, will continue to monitor 10)Tinnitus/Hearing Loss: established with Audiology, no acute issues or concerns 11)Pancreatic Cyst: reviewed; MRI due in 2024 12) HME: Labs 10/2023 Colonoscopy: 11/30/2022 at [facility]; Dr. Bon Ayala; repeat 5 years LDCT: N/A Immunizations: COVID-19 (Pfizer): 08/23/2020; 09/15/2020; 03/25/2021; declines booster Influenza: 04/17/2023 PCV 20: 04/14/2022 Td: 06/23/2019 Shingrix: 06/22/2021; 10/13/2021 RETURN TO CLINIC: 6 months SUMMARY STATEMENT: Plan of care has been discussed with including expected therapeutic benefits and potential side effects of prescribed medication and treatments. [place] verbalizes understanding and is in agreement with the plan of care. Patient was instructed to keep all scheduled appointments and contact office secretary for any additional problems. Prostate Cancer Screening Education: Patient had prostate cancer counseling at this encounter. The pros and cons of PSA-testing and Prostate Cancer screening were discussed, including: early detection, early treatment, risk factors and the need for follow up testing. Patient agrees to have PSA test performed. Lab test ordered. HIV Screening (Routine): Patient has been offered HIV testing and has declined. I have explained that HIV testing is recommended for all adults, even if all risk factors are absent. 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 Handwritten corrections, additions and/or deletions were made to the list, as appropriate. Corrected Outpatient Medication List was provided to the patient/caregiver. COVID-19 Immunization: Refused Pfizer Monovalent COVID-19 vaccine Immunization: COVID-19 (PFIZER), MRNA, LNP-S, PF, ZE-SUCROSE, 30 MCG/0.3 ML (AGES 12+ YEARS) Refusal Reason: PATIENT DECISION Patient refuses all immunization(s) in the COVID-19 group Date Documented: 10/18/23 11:24 Sexual Orientation: The patient thinks of their sexual orientation as: Straight or Heterosexual [facility] MAP: PERSONAL HEALTH PLAN INVENTORY & MAP 's Response: Family SHARED GOALS work Medication Reconciliation Opt STL: I have reviewed the patient's medication list (including active outpatient prescriptions [facility]ensed from this [facility] (local) and dispensed from another DC or DoD facility (remote) as well as inpatient orders (local pending and active), local clinic medications, locally documented non-VA medications, and local prescriptions that have or been discontinued in the past 90 days.) with the patient and/or 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 Handwritten corrections, additions and/or deletions were made to the list, as appropriate. Corrected Outpatient Medication List was provided to the patient/caregiver. /veronica/ ALFONSO ALEXIS MSN,MUSEUM LIBRARIAN-BC NURSE PRACTITIONER Signed: 10/18/2023 12:20 10/19/2023 ADDENDUM STATUS: COMPLETED Please let him know: # CHOLESTEROL NUMBERS ARE NORMAL # A1C IS 5.9%-->THIS IS PREDIABETES BUT STABLE/CONSISTENT TO PREVIOUS READINGS # VITAMIN B12 LEVEL IS ELEVATED; RECOMMEND DISCONTINUING ANY OVER THE COUNTER VITAMIN B12 #CREATININE AND EGFR (KIDNEY FUNCTION) IS DECLINED BUT STABLE/CONSISTENT TO PREVIOUS RESULTS. NORMAL ELECTROLYTES. If he would like me to re-consult Renal, please let me know Chronic kidney disease (CKD) means your kidneys are damaged and can't filter blood the way they should. The disease is called chronic because the damage to your kidneys happens slowly over a long period of time. # ALT (ONE OF YOUR LIVER FUNCTION STUDIES) IS ELEVATED BUT OTHERWISE NORMAL. I WILL TRENDD/REPEAT AT YOUR NEXT VISIT # CONTINUE YOUR SAME MEDICATION AND DOSING Hypertension -Patient is here for Hypertension follow up -The blood pressure is well controlled on current medication program with no side effects noted -Current medications: HCTZ 12.5mg/losartan 100mg, metoprolol 200mg -Renal function: CREATININE 1.33 H mg/dL 10/18/2023 11:43 EGFR (CKD-EPI 2020) 58.59 10/18/2023 11:43 -Denies any chest pain, shortness of breath, edema, headaches or blurred vision Prediabetes: -a1c 5.9% (10/2023); 5.9% (10/2022); 5.9% (09/2021) Hepatic Steatosis: -CT 11/2021: Liver: Diffuse hepatic steatosis is present with sparing along the gallbladder fossa. -MRI 11/2022: diffuse hepatic steatosis CKD Stage 3a: -Creatinine: 1.3; egfr: 58 /es/ ALFONSO ALEXIS MSN,MUSEUM LIBRARIAN-BC NURSE PRACTITIONER Signed: 10/19/2023 07:36 Receipt Acknowledged By: 10/19/2023 09:32 /veronica/ KEISHA JASON REGISTERED NURSE KEISHA JASON [facility] Oct 19, 2023 07:33 AM ADDENDUM: LOCAL TITLE: Addendum STANDARD TITLE: ADDENDUM DATE OF NOTE: OCT 19, 2023@07:33:36 ENTRY DATE: OCT 19, 2023@07:33:36 AUTHOR: ALFONSO ALEXIS EXP COSIGNER: URGENCY: STATUS: COMPLETED Please let him know: # CHOLESTEROL NUMBERS ARE NORMAL # A1C IS 5.9%-->THIS IS PREDIABETES BUT STABLE/CONSISTENT TO PREVIOUS READINGS # VITAMIN B12 LEVEL IS ELEVATED; RECOMMEND DISCONTINUING ANY OVER THE COUNTER VITAMIN B12 #CREATININE AND EGFR (KIDNEY FUNCTION) IS DECLINED BUT STABLE/CONSISTENT TO PREVIOUS RESULTS. NORMAL ELECTROLYTES. If he would like me to re-consult Renal, please let me know Chronic kidney disease (CKD) means your kidneys are damaged and can't filter blood the way they should. The disease is called chronic because the damage to your kidneys happens slowly over a long period of time. # ALT (ONE OF YOUR LIVER FUNCTION STUDIES) IS ELEVATED BUT OTHERWISE NORMAL. I WILL TRENDD/REPEAT AT YOUR NEXT VISIT # CONTINUE YOUR SAME MEDICATION AND DOSING Hypertension -Patient is here for Hypertension follow up -The blood pressure is well controlled on current medication program with no side effects noted -Current medications: HCTZ 12.5mg/losartan 100mg, metoprolol 200mg -Renal function: CREATININE 1.33 H mg/dL 10/18/2023 11:43 EGFR (CKD-EPI 2020) 58.59 10/18/2023 11:43 -Denies any chest pain, shortness of breath, edema, headaches or blurred vision Prediabetes: -a1c 5.9% (10/2023); 5.9% (10/2022); 5.9% (09/2021) Hepatic Steatosis: -CT 11/2021: Liver: Diffuse hepatic steatosis is present with sparing along the gallbladder fossa. -MRI 11/2022: diffuse hepatic steatosis CKD Stage 3a: -Creatinine: 1.3; egfr: 58 /es/ ALFONSO ALEXIS MSN,MUSEUM LIBRARIAN- NURSE PRACTITIONER Signed: 10/19/2023 07:36 Receipt Acknowledged By: 10/19/2023 09:32 /es/ KEISHA JAOSN REGISTERED NURSE --- Original Document --- 10/18/23 PRIMARY CARE PROVIDER ESTABLISHED VISIT STL: REASON FOR VISIT/CHIEF COMPLAINT: follow up HPI: This is a 67 year old presenting today for management of chronic disease Has episode of vertigo in August, resolved Plans to retire in Outside Providers: PCP: Dr. Baker Sleep Apnea: The patient IS using their CPAP machine nightly and appears to be well controlled on pressure level. Will send for titration studies periodically or if dramatic change in weight. The patient has been advised that using CPAP regularly can decrease cardiac strain and help to control blood pressure. Hypertension -Patient is here for Hypertension follow up -The blood pressure is well controlled on current medication program with no side effects noted -Current medications: HCTZ 12.5mg/losartan 100mg, metoprolol 200mg -Renal function: CREATININE 1.26 mg/dL 10/13/2021 09:38 EGFR (CKD-EPI 2020) 63.29 10/13/2021 09:38 -Denies any chest pain, shortness of breath, edema, headaches or blurred vision ED: -sildenafil 100mg HSV: -Valacyclovir 500mg BID PRN Vitamin D Def: -28 (09/2021) Prediabetes: -a1c 5.9% (10/2022); 5.9% (09/2021) Hepatic Steatosis: -CT 11/2021: Liver: Diffuse hepatic steatosis is present with sparing along the gallbladder fossa. -MRI 11/2022: diffuse hepatic steatosis Renal Cysts: -CT 11/2021: Numerous bilateral simple cysts. Several hypoattenuating renal lesions do not meet criteria for simple cysts and are indeterminate, as above. MRI would be the next appropriate imaging modality to characterize. No renal calculi or hydronephrosis MRI 11/2022: Bilateral simple and hemorrhagic renal cysts. No suspicious renal lesions are identified. -Consult placed to Renal at previous visit and failed to schedule Hearing Loss/Tinnitus: -established with Audiology, has hearing aids Pancreatic Cyst: -MRI 11/2022: Pancreatic head and body cysts measuring up to 1 cm. No pancreatic ductal dilation. Follow-up pancreatic protocol MRI or CT is advised in 2 years to confirm stability. DUE 11/2024 What is your goal for today: routine visit SOCIAL HISTORY: NICOTINE: None ALCOHOL: None ILLICIT DRUGS: None SOURCE(S) OF HISTORY: Patient PAST MEDICAL HISTORY: 1) Erectile Dysfunction (SCT [id number]) 2) HTN - Hypertension ([facility] [id number]) 3) Herpes simplex type 1 infection 4) Obstructive Sleep Apnea of Adult ([facility] [id number]) 5) Vitamin D Deficiency ([facility] [id number]) 6) Prediabetes ([facility] [id number]) 7) Steatosis of liver 8) Multiple renal [...] Active and Recently Outpatient Medications (excluding Supplies): Inactive Outpatient Medications Status 1) HCTZ 12.5MG/LOSARTAN 100MG TAB TAKE 1 TABLET BY MOUTH EVERY MORNING TO LOWER BLOOD PRESSURE 2) METOPROLOL SUCCINATE 200MG SA TAB TAKE ONE TABLET BY MOUTH ONCE A DAY FOR HEART/BLOOD PRESSURE. SWALLOW WHOLE, DO NOT CRUSH OR CHEW (TABLETS MAY BE CUT IN HALF). 3) SILDENAFIL CITRATE 100MG TAB TAKE ONE TABLET BY MOUTH EVERY WEEK NEEDED FOR ERECTILE DYSFUNCTION (TAKE 60 MINUTES PRIOR TO SEXUAL ACTIVITY) - LIMIT 4 DOSES PER 30 DAYS 4) VALACYCLOVIR HCL 500MG TAB TAKE ONE TABLET BY MOUTH TWICE A DAY FOR COLD SORES MEDICATION RECONCILIATION: completed REVIEW OF SYSTEMS: Constitutional: denies weight change, fever, chills, diaphoresis, fatigue, malaise, or change in appetite ENT/Mouth: denies hearing changes, ear pain, nasal congestion, sinus tenderness, hoarseness, sore throat, rhinorrhea, swallowing Difficulty, or pnd Eyes: denies eye pain, swelling, redness, foreign Body, drainage,or vision changes Cardiovascular: denies chest pain, No SOB, PARSON, orthopnea, claudication, edema,or palpitations Respiratory: denies SOB, cough, sputum, wheezing, or smoke exposure. Gastrointestinal: denies n/v/d,constipation, abd pain, heartburn, anorexia, dysphagia, hematochezia, melena, or flatulence. Genitourinary: denies dysuria, urinary frequency, hematuria, urinary incontinence, urgency, flank Pain,urinary flow changes, or hesitancy Musculoskeletal: denies arthralgias,myalgias, joint swelling, joint stiffness, back pain, neck pain, or injury Skin: denies new lesions, pruritis, hair changes, or rashes Neuro: denies weakness, numbness, paresthesias, LOC, syncope, dizziness, ZABALA, coordination changes,changes in gait, or recent falls Psych: denies anxiety/panic, depression, insomnia, personality changes, delusions, SI/HI, memory changes, violence/abuse hx., or eating concerns Heme/Lymph: Denies bruising,bleeding, or lymphadenopathy Endocrine: Denies polyuria, polydipsia,or temperature intolerance PHYSICAL EXAMINATION: VITALS (most recent, as listed in the electronic record): Temperature: 97.7 F [36.5 C] (10/18/2023 10:53) BP: 132/80 (10/18/2023 10:58) Pulse: 56 (10/18/2023 10:53) Resp: 16 (10/18/2023 10:53) PulsOx: 98% (10/18/2023 10:53) Pain: 0 (10/18/2023 10:53) Weight: Measurement DT WEIGHT LB(KG)[BMI] 10/18/2023 10:53 206.4(93.62)[33*] 08/21/2023 10:55 206.6(93.71)[33*] 04/17/2023 11:06 202.1(91.67)[33*] General: ambulatory male in no acute distress Eyes: PERRL, sclerae anicteric Musculoskeletal/extremities ; good bulk and tone, trace edema, Pulses 2+ at DP and PT. Cardiovascular: RRR, no m/r/g. Respiratory: Lungs clear to auscultation Abdomen/GI: abdomen soft/non-tender, no mass or organomegaly Hematologic: no bruises noted Lymphatic: no cervical /supraclavicular adenopathy Endocrine: no thyromegaly Psychiatric: pleasant and cooperative Neurologic: Facial muscles [...] BASOPHILS, AUTO % 1 % 10/13/2022 09:16 NEUTROPHILS, ABSOLUTE 6.77 10*3/uL 10/13/2022 09:16 LYMPHOCYTES, ABSOLUTE 2.38 10*3/uL 10/13/2022 09:16 MONOCYTES, ABSOLUTE 1.08 10*3/uL 10/13/2022 09:16 EOSINOPHILS, ABSOLUTE 0.30 10*3/uL 10/13/2022 09:16 BASOPHILS, ABSOLUTE 0.05 10*3/uL 10/13/2022 09:16 PSA: PROST. SPECIFIC AG.(PB-STL) 2.317 ng/mL 10/13/2022 09:16 Result: Acceptable Follow-up Action: Re check prior to next visit. Data results reviewed with patient and/or caregiver. ASSESSMENT/PLAN: 1)Annual (Male)-The patient was counseled regarding the appropriate use of alcohol, screening procedures and recommended schedule for colonoscopy, psa, cholesterol, thyroid and diabetes screening, prevention of dental and periodontal disease, diet, regular sustained exercise for at least 30 minutes 3- 4 times per week, prostate cancer screening, regular use of seat belts. Recommend dilated eye exam and glaucoma screening every 2 years or as indicated by ophthalmology 2)VONDA: compliant with CPAP 3)HTN: blood pressure controlled on current medications, monitor blood pressure at home and report abnormal readings. DASH diet. Trend renal function. Goal <130/80 4)Erectile Dysfunction: Continue current medications on as needed basis. The patient's symptoms of erectile dysfunction are stable at this point. If medications fail to give desired effect, will refer to urology or consider alternative treatments. 5)Herpes: At this time, the patient's outbreaks are stables. Continue current medications. Encouraged the patient to continue limiting exposure to others,especially when outbreak is present. 6)Vitamin D Def: repeat levels today, will start daily supplementation as needed 7)Prediabetes: repeat a1c, encouraged diet and exercise 8)Hepatic Steatosis: trend LFT's, encouraged diet and exercise 9)Renal Cysts: declines renal at this time, will continue to monitor 10)Tinnitus/Hearing Loss: established with Audiology, no acute issues or concerns 11)Pancreatic Cyst: reviewed; MRI due in 2024 12) HME: Labs 10/2023 Colonoscopy: 11/30/2022 at [facility]; Dr. Bon Ayala; repeat 5 years LDCT: N/A Immunizations: COVID-19 (Pfizer): 08/23/2020; 09/15/2020; 03/25/2021; declines booster Influenza: 04/17/2023 PCV 20: 04/14/2022 Td: 06/23/2019 Shingrix: 06/22/2021; 10/13/2021 RETURN TO CLINIC: 6 months SUMMARY STATEMENT: Plan of care has been discussed with including expected therapeutic benefits and potential side effects of prescribed medication and treatments. [place] verbalizes understanding and is in agreement with the plan of care. Patient was instructed to keep all scheduled appointments and contact office secretary for any additional problems. Prostate Cancer Screening Education: Patient had prostate cancer counseling at this encounter. The pros and cons of PSA-testing and Prostate Cancer screening were discussed, including: early detection, early treatment, risk factors and the need for follow up testing. Patient agrees to have PSA test performed. Lab test ordered. HIV Screening (Routine): Patient has been offered HIV testing and has declined. I have explained that HIV testing is recommended for all adults, even if all risk factors are absent. 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 Handwritten corrections, additions and/or deletions were made to the list, as appropriate. Corrected Outpatient Medication List was provided to the patient/caregiver. COVID-19 Immunization: Refused Pfizer Monovalent COVID-19 vaccine Immunization: COVID-19 (PFIZER), MRNA, LNP-S, PF, ZE-SUCROSE, 30 MCG/0.3 ML (AGES 12+ YEARS) Refusal Reason: PATIENT DECISION Patient refuses all immunization(s) in the COVID-19 group Date Documented: 10/18/23 11:24 Sexual Orientation: The patient thinks of their sexual orientation as: Straight or Heterosexual [facility] MAP: PERSONAL HEALTH PLAN INVENTORY & MAP [place]'s Response: Family SHARED GOALS work Medication Reconciliation Opt STL: I have reviewed the patient's medication list (including active outpatient prescriptions dispensed from this [facility] (local) and dispensed from another [facility] or [facility]D facility (remote) as well as inpatient orders (local pending and active), local clinic medications, locally documented non-VA medications, and local prescriptions that have or been discontinued in the past 90 days.) with the patient and/or 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 Handwritten corrections, additions and/or deletions were made to the list, as appropriate. Corrected Outpatient Medication List was provided to the patient/caregiver. /veronica/ ALFONSO ALEXIS MSN,MUSEUM LIBRARIAN- NURSE PRACTITIONER Signed: 10/18/2023 12:20 10/19/2023 ADDENDUM STATUS: UNSIGNED You may not VIEW this UNSIGNED Addendum. ALFONSO ALEXIS [facility] Oct 19, 2023 07:25 AM PHYSICIAN LETTERS: LOCAL TITLE: TEST RESULT GENERAL LETTER STL STANDARD TITLE: PHYSICIAN LETTERS DATE OF NOTE: OCT 19, 2023@07:25 ENTRY DATE: OCT 19, 2023@07:25:31 AUTHOR: ALFONSO ALEXIS EXP COSIGNER: URGENCY: STATUS: COMPLETED [facility] [address] [place] [address] OCT 19, 2023 MAGDALENO SMITH [address] [place] [id number] Dear Magdaleno Smith, I would like to update you on your recent test results. LIPID PROFILE - High cholesterol and triglycerides (lipids) are risk factors for heart disease. Your cholesterol should fall between 140 and 200, and your triglycerides levels should be less than or equal to 150. HDL is the good cholesterol and should ideally be greater than 40. LDL is the bad cholesterol and optimal levels should be less than 100 (near optimal is between 100 and 129). TRIGLYCERIDE 110 mg/dL 10/18/2023 11:43 CHOLESTEROL 172 mg/dL 10/18/2023 11:43 HDL(New) 35 L mg/dL 10/18/2023 11:43 CALCULATED LDL 115 mg/dL 10/18/2023 11:43 These readings are within normal limits. Cholesterol Results HDL is good cholesterol and should be above 50. LDL is bad cholesterol and should be less than 130 for most people, less than 100 in diabetics and less than 70 for people with heart disease. This is the most important predictor of heart disease in a cholesterol panel. Total cholesterol should be less than 200. Triglycerides are another type of fat in the blood and should be less than 350. In the 350 to 450 range a risk of heart disease increases. Cholesterol Diet: WHAT ELSE CAN I DO? --Remember to check all labels. Many foods contain hidden fats! --Bake, broil, or roast meat rather than frying them. Skip gravies and rich sauces. (Don't buy self-basting turkeys!) --Limit intake of rich pastries and desserts that are high in butter, eggs, cream, or shortening. --Choose a frozen fruit sorbet or low- or non-fat frozen yogurt rather than ice cream or ice milk. (Some sherbets may contain whole milk, so check labels carefully!) --Use a nonstick cooking spray or nonstick pans. --Chill and skim fat off of meat stock or drippings when making soup or sauces. --Check labels for the words hydrogenated or hardened fats or oils, and avoid these products. ARE THERE OTHER TERMS YOU MAY HAVE QUESTIONS ABOUT? --HDL's (high-density lipoproteins) and LDL's (low-density lipoproteins) transport cholesterol in your blood. --LDLs carry cholesterol into your cells and HDLs carry it away and dispose of it in the liver, having a protective effect on your circulatory system. --High saturated fat, high cholesterol diets may increase the harmful LDL's. --Not smoking, participating in aerobic activity, and losing weight if you are overweight may increase the beneficial HDL's. --Triglycerides (TG) are fatty compounds that are a combination of three (tri) fatty acids and glycerin. --Body fat is made up of mostly stored triglycerides. --Triglycerides also circulate in the blood stream like cholesterol, and may have a link with heart disease. --To lower triglycerides, maintain ideal body weight, limit intake of sugars and alcohol, and eat a low-fat diet. GLUCOSE - Your blood sugar or glucose level result GLUCOSE GLUCOSE 110 H mg/dL 10/18/2023 11:43 These readings are within normal limits. HEMOGLOBIN A1C - Gives us information about your diabetes (sugar or glucose) control over the past 3 months. Your target is to keep your A1C below 6 %. HGA1C 5.9 % 10/18/2023 11:43 These results are abnormal. A1C IS 5.9% PREVIOUS RESULTS: a1c 5.9% (10/2022); 5.9% (09/2021) Your A1C Result A normal A1C level is below 5.7%, a level of 5.7% to 6.4% indicates prediabetes, and a level of 6.5% or more indicates diabetes. Within the 5.7% to 6.4% prediabetes range, the higher your A1C, the greater your risk is for developing type 2 diabetes MICROALBUMIN - The microalbumin to creatinine ratio test is most commonly used to screen for kidney problems. uACR (STL) 5 mg/g 0 - 29 CREATININE URINE/OTHERS 143.3 mg/dL 63.0 - 166.0 URINE ALBUMIN (PB-STL) 7 mg/L Ref: No range refer to micral/creat ratio These readings are within normal limits. A urine microalbumin test is a test to detect very small levels of a blood protein (albumin) in your urine. A microalbumin test is used to detect early signs of kidney damage in people who are at risk of developing kidney disease. Healthy kidneys filter waste from your blood and hang on to the healthy components, including proteins such as albumin. Kidney damage can cause proteins to leak through your kidneys and exit your body in your urine. Albumin is one of the first proteins to leak when kidneys become damaged. Microalbumin tests are recommended for people with an increased risk of kidney disease, such as those with diabetes or high blood pressure. CBC - A complete blood count (CBC) gives important information about the kinds and numbers of cells in the blood, especially red blood cells, white blood cells, and platelets. HGB 15.0 g/dL 10/18/2023 11:43 HEMATOCRIT 42.0 % (10/18/23 11:43) PLT 265 10*3/uL 10/18/2023 11:43 WHITE BLOOD COUNT 10.4 10*3/uL (10/18/23 11:43) These readings are within normal limits. B12 - Helps maintain healthy nerve cells, red blood cells, and is also needed to make DNA. B12 >2000 H pg/mL 10/18/2023 11:43 These results are abnormal. VITAMIN B12 LEVEL IS ELEVATED; RECOMMEND DISCONTINUING ANY OVER THE COUNTER VITAMIN B12 CHEM 7 - This is important information about the current status of your kidneys, liver, and electrolyte and acid/base balance as well as of your blood sugar and blood proteins. SODIUM 138 mEq/L 10/18/2023 11:43 POTASSIUM 4.0 mEq/L 10/18/2023 11:43 CHLORIDE 107 mEq/L 10/18/2023 11:43 UREA NITROGEN 20.2 mg/dL 10/18/2023 11:43 CREATININE 1.33 H mg/dL 10/18/2023 11:43 CALCIUM 9.1 mg/dL 10/18/2023 11:43 CARBON DIOXIDE 22 mEq/L 10/18/2023 11:43 GLUCOSE 110 H mg/dL 10/18/2023 11:43 EGFR (CKD-EPI 2020) 58.59 10/18/2023 11:43 These results are abnormal. CREATININE AND EGFR (KIDNEY FUNCTION) IS DECLINED BUT STABLE/CONSISTENT TO PREVIOUS RESULTS. NORMAL ELECTROLYTES Chronic kidney disease (CKD) means your kidneys are damaged and cant filter blood the way they should. The disease is called chronic because the damage to your kidneys happens slowly over a long period of time. LIVER FUNCTION PANEL - These are tests for liver function: PROTEIN 7.2 g/dL 10/18/2023 11:43 ALBUMIN 4.2 g/dL 10/18/2023 11:43 TOTAL BILIRUBIN 0.9 mg/dL 10/18/2023 11:43 ALKALINE PHOSPHATASE 78 U/L 10/18/2023 11:43 AST/SGOT 27 U/L 10/18/2023 11:43 ALT/SGPT 42 H U/L 10/18/2023 11:43 These readings are within normal limits. ALT (ONE OF YOUR LIVER FUNCTION STUDIES) IS ELEVATED BUT OTHERWISE NORMAL. I WILL TRENDD/REPEAT AT YOUR NEXT VISIT PSA - Prostate-specific antigen is a protein produced by cells of the prostate gland. The PSA test measures the level of PSA in the blood. PSA PROST. SPECIFIC AG.(PB-STL) 2.379 ng/mL 10/18/2023 11:43 These readings are within normal limits. TSH - Thyroid-stimulating hormone (also known as TSH or thyrotropin) is a peptide hormone synthesized and secreted by thyrotrope cells in the anterior pituitary gland, which regulates the endocrine function of the thyroid gland. TSH TSH 1.627 uIU/mL 10/18/2023 11:43 These readings are within normal limits. VITAMIN D - Helps promote the proper utilization of calcium and phosphorus, thereby producing proper bone maintenance. VITAMIN D, 25-HYDROXY 45.3 ng/mL 10/18/2023 11:43 These readings are within normal limits. Vitamin D Status: Deficiency <20 ng/mL Insufficiency 20-30 ng/mL Sufficiency 30-100 ng/mL Toxicity >100 ng/mL URINALYSIS - A urinalysis (or UA ) is an array of tests performed on urine and one of the most common methods of medical diagnosis. URINALYSIS URINE COLOR Light-Yellow 10/18/2023 11:53 APPEARANCE Clear 10/18/2023 11:53 U.PH 6.5 10/18/2023 11:53 U.BILIRUBIN Negative mg/dL 10/18/2023 11:53 U.NITRITE Negative mg/dL 10/18/2023 11:53 These readings are within normal limits. PLAN Please continue your treatment as we discussed during your visit. If you have any questions please call your case packer. I look forward to seeing you at your next clinic appointment. Thank you for choosing the [facility] for your healthcare. # CHOLESTEROL NUMBERS ARE NORMAL # A1C IS 5.9%-->THIS IS PREDIABETES BUT STABLE/CONSISTENT TO PREVIOUS READINGS # VITAMIN B12 LEVEL IS ELEVATED; RECOMMEND DISCONTINUING ANY OVER THE COUNTER VITAMIN B12 #CREATININE AND EGFR (KIDNEY FUNCTION) IS DECLINED BUT STABLE/CONSISTENT TO PREVIOUS RESULTS. NORMAL ELECTROLYTES Chronic kidney disease (CKD) means your kidneys are damaged and can't filter blood the way they should. The disease is called chronic because the damage to your kidneys happens slowly over a long period of time. # ALT (ONE OF YOUR LIVER FUNCTION STUDIES) IS ELEVATED BUT OTHERWISE NORMAL. I WILL TRENDD/REPEAT AT YOUR NEXT VISIT # CONTINUE YOUR SAME MEDICATION AND DOSING PLEASE LET ME KNOW IF YOU HAVE ANY QUESTIONS OR CONCERNS FUTURE APPOINTMENTS: 04/29/2024 10:30 TEENA-PACT E11 PCP Sincerely, ALFONSO ALEXIS MSN,MUSEUM LIBRARIAN- NURSE PRACTITIONER MAGDALENO SMITH JESSICA K [facility] Oct 18, 2023 11:13 AM PRIMARY CARE NOTE: LOCAL TITLE: PRIMARY CARE PROVIDER ESTABLISHED VISIT [facility] STANDARD TITLE: PRIMARY CARE NOTE DATE OF NOTE: OCT 18, 2023@11:13 ENTRY DATE: OCT 18, 2023@11:13:29 AUTHOR: ALFONSO ALEXIS COSIGNER: URGENCY: STATUS: COMPLETED PRIMARY CARE PROVIDER ESTABLISHED VISIT STL Has ADDENDA REASON FOR VISIT/CHIEF COMPLAINT: follow up HPI: This is a 67 year old presenting today for management of chronic disease Has episode of vertigo in August, resolved Plans to retire in November/December Outside Providers: PCP: Dr. Baker Sleep Apnea: The patient IS using their CPAP machine nightly and appears to be well controlled on pressure level. Will send for titration studies periodically or if dramatic change in weight. The patient has been advised that using CPAP regularly can decrease cardiac strain and help to control blood pressure. Hypertension -Patient is here for Hypertension follow up -The blood pressure is well controlled on current medication program with no side effects noted -Current medications: HCTZ 12.5mg/losartan 100mg, metoprolol 200mg -Renal function: CREATININE 1.26 mg/dL 10/13/2021 09:38 EGFR (CKD-EPI 2020) 63.29 10/13/2021 09:38 -Denies any chest pain, shortness of breath, edema, headaches or blurred vision ED: -sildenafil 100mg HSV: -Valacyclovir 500mg BID PRN Vitamin D Def: -28 (09/2021) Prediabetes: -a1c 5.9% (10/2022); 5.9% (09/2021) Hepatic Steatosis: -CT 11/2021: Liver: Diffuse hepatic steatosis is present with sparing along the gallbladder fossa. -MRI 11/2022: diffuse hepatic steatosis Renal Cysts: -CT 11/2021: Numerous bilateral simple cysts. Several hypoattenuating renal lesions do not meet criteria for simple cysts and are indeterminate, as above. MRI would be the next appropriate imaging modality to characterize. No renal calculi or hydronephrosis MRI 11/2022: Bilateral simple and hemorrhagic renal cysts. No suspicious renal lesions are identified. -Consult placed to Renal at previous visit and failed to schedule Hearing Loss/Tinnitus: -established with Audiology, has hearing aids Pancreatic Cyst: -MRI 11/2022: Pancreatic head and body cysts measuring up to 1 cm. No pancreatic ductal dilation. Follow-up pancreatic protocol MRI or CT is advised in 2 years to confirm stability. DUE 11/2024 What is your goal for today: routine visit SOCIAL HISTORY: NICOTINE: None ALCOHOL: None ILLICIT DRUGS: None SOURCE(S) OF HISTORY: Patient PAST MEDICAL HISTORY: 1) Erectile Dysfunction ([facility] [id number]) 2) HTN - Hypertension ([facility] [id number]) 3) Herpes simplex type 1 infection 4) Obstructive Sleep Apnea of Adult ([facility] [id number]) 5) Vitamin D Deficiency ([facility] [id number]) 6) Prediabetes ([facility] [id number]) 7) Steatosis of liver 8) Multiple renal [...] Active and Recently Outpatient Medications (excluding Supplies): Inactive Outpatient Medications Status 1) HCTZ 12.5MG/LOSARTAN 100MG TAB TAKE 1 TABLET BY MOUTH EVERY MORNING TO LOWER BLOOD PRESSURE 2) METOPROLOL SUCCINATE 200MG SA TAB TAKE ONE TABLET BY MOUTH ONCE A DAY FOR HEART/BLOOD PRESSURE. SWALLOW WHOLE, DO NOT CRUSH OR CHEW (TABLETS MAY BE CUT IN HALF). 3) SILDENAFIL CITRATE 100MG TAB TAKE ONE TABLET BY MOUTH EVERY WEEK NEEDED FOR ERECTILE DYSFUNCTION (TAKE 60 MINUTES PRIOR TO SEXUAL ACTIVITY) - LIMIT 4 DOSES PER 30 DAYS 4) VALACYCLOVIR HCL 500MG TAB TAKE ONE TABLET BY MOUTH TWICE A DAY FOR COLD SORES MEDICATION RECONCILIATION: completed REVIEW OF SYSTEMS: Constitutional: denies weight change, fever, chills, diaphoresis, fatigue, malaise, or change in appetite ENT/Mouth: denies hearing changes, ear pain, nasal congestion, sinus tenderness, hoarseness, sore throat, rhinorrhea, swallowing Difficulty, or pnd Eyes: denies eye pain, swelling, redness, foreign Body, drainage,or vision changes Cardiovascular: denies chest pain, No SOB, PARSON, orthopnea, claudication, edema,or palpitations Respiratory: denies SOB, cough, sputum, wheezing, or smoke exposure. Gastrointestinal: denies n/v/d,constipation, abd pain, heartburn, anorexia, dysphagia, hematochezia, melena, or flatulence. Genitourinary: denies dysuria, urinary frequency, hematuria, urinary incontinence, urgency, flank Pain,urinary flow changes, or hesitancy Musculoskeletal: denies arthralgias,myalgias, joint swelling, joint stiffness, back pain, neck pain, or injury Skin: denies new lesions, pruritis, hair changes, or rashes Neuro: denies weakness, numbness, paresthesias, LOC, syncope, dizziness, ZABALA, coordination changes,changes in gait, or recent falls Psych: denies anxiety/panic, depression, insomnia, personality changes, delusions, SI/HI, memory changes, violence/abuse hx., or eating concerns Heme/Lymph: Denies bruising,bleeding, or lymphadenopathy Endocrine: Denies polyuria, polydipsia,or temperature intolerance PHYSICAL EXAMINATION: VITALS (most recent, as listed in the electronic record): Temperature: 97.7 F [36.5 C] (10/18/2023 10:53) BP: 132/80 (10/18/2023 10:58) Pulse: 56 (10/18/2023 10:53) Resp: 16 (10/18/2023 10:53) PulsOx: 98% (10/18/2023 10:53) Pain: 0 (10/18/2023 10:53) Weight: Measurement DT WEIGHT LB(KG)[BMI] 10/18/2023 10:53 206.4(93.62)[33*] 08/21/2023 10:55 206.6(93.71)[33*] 04/17/2023 11:06 202.1(91.67)[33*] General: ambulatory male in no acute distress Eyes: PERRL, sclerae anicteric Musculoskeletal/extremities ; good bulk and tone, trace edema, Pulses 2+ at DP and PT. Cardiovascular: RRR, no m/r/g. Respiratory: Lungs clear to auscultation Abdomen/GI: abdomen soft/non-tender, no mass or organomegaly Hematologic: no bruises noted Lymphatic: no cervical /supraclavicular adenopathy Endocrine: no thyromegaly Psychiatric: pleasant and cooperative Neurologic: Facial muscles [...] BASOPHILS, AUTO % 1 % 10/13/2022 09:16 NEUTROPHILS, ABSOLUTE 6.77 10*3/uL 10/13/2022 09:16 LYMPHOCYTES, ABSOLUTE 2.38 10*3/uL 10/13/2022 09:16 MONOCYTES, ABSOLUTE 1.08 10*3/uL 10/13/2022 09:16 EOSINOPHILS, ABSOLUTE 0.30 10*3/uL 10/13/2022 09:16 BASOPHILS, ABSOLUTE 0.05 10*3/uL 10/13/2022 09:16 PSA: PROST. SPECIFIC AG.(PB-STL) 2.317 ng/mL 10/13/2022 09:16 Result: Acceptable Follow-up Action: Re check prior to next visit. Data results reviewed with patient and/or caregiver. ASSESSMENT/PLAN: 1)Annual (Male)-The patient was counseled regarding the appropriate use of alcohol, screening procedures and recommended schedule for colonoscopy, psa, cholesterol, thyroid and diabetes screening, prevention of dental and periodontal disease, diet, regular sustained exercise for at least 30 minutes 3- 4 times per week, prostate cancer screening, regular use of seat belts. Recommend dilated eye exam and glaucoma screening every 2 years or as indicated by ophthalmology 2)VONDA: compliant with CPAP 3)HTN: blood pressure controlled on current medications, monitor blood pressure at home and report abnormal readings. DASH diet. Trend renal function. Goal <130/80 4)Erectile Dysfunction: Continue current medications on as needed basis. The patient's symptoms of erectile dysfunction are stable at this point. If medications fail to give desired effect, will refer to urology or consider alternative treatments. 5)Herpes: At this time, the patient's outbreaks are stables. Continue current medications. Encouraged the patient to continue limiting exposure to others,especially when outbreak is present. 6)Vitamin D Def: repeat levels today, will start daily supplementation as needed 7)Prediabetes: repeat a1c, encouraged diet and exercise 8)Hepatic Steatosis: trend LFT's, encouraged diet and exercise 9)Renal Cysts: declines renal at this time, will continue to monitor 10)Tinnitus/Hearing Loss: established with Audiology, no acute issues or concerns 11)Pancreatic Cyst: reviewed; MRI due in 2024 12) HME: Labs 10/2023 Colonoscopy: 11/30/2022 at [facility]; Dr. Bon Ayala; repeat 5 years LDCT: N/A Immunizations: COVID-19 (Pfizer): 08/23/2020; 09/15/2020; 03/25/2021; declines booster Influenza: 04/17/2023 PCV 20: 04/14/2022 Td: 06/23/2019 Shingrix: 06/22/2021; 10/13/2021 RETURN TO CLINIC: 6 months SUMMARY STATEMENT: Plan of care has been discussed with including expected therapeutic benefits and potential side effects of prescribed medication and treatments. verbalizes understanding and is in agreement with the plan of care. Patient was instructed to keep all scheduled appointments and contact office secretary for any additional problems. Prostate Cancer Screening Education: Patient had prostate cancer counseling at this encounter. The pros and cons of PSA-testing and Prostate Cancer screening were discussed, including: early detection, early treatment, risk factors and the need for follow up testing. Patient agrees to have PSA test performed. Lab test ordered. HIV Screening (Routine): Patient has been offered HIV testing and has declined. I have explained that HIV testing is recommended for all adults, even if all risk factors are absent. 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 Handwritten corrections, additions and/or deletions were made to the list, as appropriate. Corrected Outpatient Medication List was provided to the patient/caregiver. COVID-19 Immunization: Refused Pfizer Monovalent COVID-19 vaccine Immunization: COVID-19 (PFIZER), MRNA, LNP-S, PF, ZE-SUCROSE, 30 MCG/0.3 ML (AGES 12+ YEARS) Refusal Reason: PATIENT DECISION Patient refuses all immunization(s) in the COVID-19 group Date Documented: 10/18/23 11:24 Sexual Orientation: The patient thinks of their sexual orientation as: Straight or Heterosexual [facility] MAP: PERSONAL HEALTH PLAN INVENTORY & MAP [place]'s Response: Family SHARED GOALS work Medication Reconciliation Opt STL: I have reviewed the patient's medication list (including active outpatient prescriptions dispensed from this [facility] (local) and dispensed from another [facility] or [facility] facility (remote) as well as inpatient orders (local pending and active), local clinic medications, locally documented non-VA medications, and local prescriptions that have or been discontinued in the past 90 days.) with the patient and/or 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 Handwritten corrections, additions and/or deletions were made to the list, as appropriate. Corrected Outpatient Medication List was provided to the patient/caregiver. /veronica/ ALFONSO ALEXIS MSN,MUSEUM LIBRARIAN-BC NURSE PRACTITIONER Signed: 10/18/2023 12:20 10/19/2023 ADDENDUM STATUS: COMPLETED Please let him know: # CHOLESTEROL NUMBERS ARE NORMAL # A1C IS 5.9%-->THIS IS PREDIABETES BUT STABLE/CONSISTENT TO PREVIOUS READINGS # VITAMIN B12 LEVEL IS ELEVATED; RECOMMEND DISCONTINUING ANY OVER THE COUNTER VITAMIN B12 #CREATININE AND EGFR (KIDNEY FUNCTION) IS DECLINED BUT STABLE/CONSISTENT TO PREVIOUS RESULTS. NORMAL ELECTROLYTES. If he would like me to re-consult Renal, please let me know Chronic kidney disease (CKD) means your kidneys are damaged and can't filter blood the way they should. The disease is called chronic because the damage to your kidneys happens slowly over a long period of time. # ALT (ONE OF YOUR LIVER FUNCTION STUDIES) IS ELEVATED BUT OTHERWISE NORMAL. I WILL TRENDD/REPEAT AT YOUR NEXT VISIT # CONTINUE YOUR SAME MEDICATION AND DOSING Hypertension -Patient is here for Hypertension follow up -The blood pressure is well controlled on current medication program with no side effects noted -Current medications: HCTZ 12.5mg/losartan 100mg, metoprolol 200mg -Renal function: CREATININE 1.33 H mg/dL 10/18/2023 11:43 EGFR (CKD-EPI 2020) 58.59 10/18/2023 11:43 -Denies any chest pain, shortness of breath, edema, headaches or blurred vision Prediabetes: -a1c 5.9% (10/2023); 5.9% (10/2022); 5.9% (09/2021) Hepatic Steatosis: -CT 11/2021: Liver: Diffuse hepatic steatosis is present with sparing along the gallbladder fossa. -MRI 11/2022: diffuse hepatic steatosis CKD Stage 3a: -Creatinine: 1.3; egfr: 58 /veronica/ ALFONSO ALEXIS MSN,MUSEUM LIBRARIAN- NURSE PRACTITIONER Signed: 10/19/2023 07:36 Receipt Acknowledged By: 10/19/2023 09:32 /veronica/ KEISHA JASON REGISTERED NURSE 10/19/2023 ADDENDUM STATUS: COMPLETED Called and spoke with patient. Reviewed test results as requested by pcp. Pt agrees to discontinue otc vitamin B12 and declines renal consult. /horacio JASON REGISTERED NURSE Signed: 10/19/2023 09:44 Receipt Acknowledged By: * AWAITING SIGNATURE * ALFONSO ALEXIS JESSICA K [facility] Oct 18, 2023 10:54 AM NURSING NOTE: LOCAL TITLE: V15 PACT FACE TO FACE NOTE STL STANDARD TITLE: NURSING NOTE DATE OF NOTE: OCT 18, 2023@10:54 ENTRY DATE: OCT 18, 2023@10:55:01 AUTHOR: JAGDISH SMART EXP COSIGNER: URGENCY: STATUS: COMPLETED Provider Visit: Patient Identifiers : Full Name Date of Reason for visit: Established Follow-Up Mode of Arrival: Ambulatory Allergy Review: AMPICILLIN Allergy list reviewed and remains current. Recent Vital Signs: Temperature: 97.7 F [36.5 C] (10/18/2023 10:53) Pulse: 56 (10/18/2023 10:53) Respiration: 16 (10/18/2023 10:53) B/P: 153/93 (10/18/2023 10:53) Pain: 0 (10/18/2023 10:53) Wt: 206.4 lb [93.62 kg] (10/18/2023 10:53) Ht: 66 in [167.6 cm] (08/21/2023 10:55) BMI: 33.4 POX: 98% (10/18/2023 10:53) Would you like to discuss any personal problem, family problem, alcohol use, drug use, or a mental or emotional illness? No My [facility] ([facility]), please select appointment type: Face to face: Yes-Do you have an upgraded (Premium) account which gives you the added benefit of Secure Messaging with your Primary Care Provider and refilling your prescriptions online? Contact provided Primary Care phone number and encouraged to call if any questions or concerns. Review that after hours nurse line [phone] and emergency room are available 05/02 for patient use. Contact verbalized good understanding. Suicide Screen: C-SSRS Screening Cochran-Suicide Severity Rating Scale (C-SSRS Screener) 1. Over the past month, have you wished you were or wished you could go to sleep and not wake up? No 2. Over the past month, have you had any actual thoughts of killing yourself? No 3. Over the past month, have you been thinking about how you might do this? Response not required due to responses to other questions. 4. Over the past month, have you had these thoughts and had some intention of acting on them? Response not required due to responses to other questions. 5. Over the past month, have you started to work out or worked out the details of how to kill yourself? Response not required due to responses to other questions. 6. If yes, at any time in the past month did you intend to carry out this plan? Response not required due to responses to other questions. 7. In your lifetime, have you ever done anything, started to do anything, or prepared to do anything to end your life (for example, collected pills, obtained a gun, gave away valuables, went to the roof but didn't jump)? No 8. If YES, was this within the past 3 months? Response not required due to responses to other questions. Depression Screening: Perform PHQ-2 A PHQ-2 screen was performed. The score was 0 which is a negative screen for depression. Over the past two weeks, how often have you been bothered by the following problems? 1. Little interest or pleasure in doing things Not at all 2. Feeling down, depressed, or hopeless Not at all Tobacco Use Screening: The patient has never used tobacco. /veronica/ Jagdish Smart LPN LICENSED PRACTICAL NURSE Signed: 10/18/2023 10:57 JAGDISH SMART [facility]
--- OUTSIDE RECORDS SUMMARY | 2024-07-28 16:26 | XMS_ITS ---
Author Name [facility] Address [address] [place] [address] Care Team Providers Care Regional Property Manager Name Role Phone ALFONSO ALEXIS Primary Care [...] Harris's Name Patient's Relationship to Policy Harris [facility] (WNR) MEDICARE ADVANTAGE [facility] (WNR) Jul 16, 2023 [id number] CARRIL,TH OMAS PATIENT [employer] ([employer]) PRESCRIPT ION VNA PPO ACTIV E Feb 13, 2018 [id number] [phone] CARRIL,TH OMAS PATIENT [facility] VEOLI A Jul 16, 2018 [id number] [phone] CARRIL,TH OMAS PATIENT Selected Encounter This section includes the information on record at MD for the Encounter. Date/Time Encounter Type Encounter Description Reason Pro vider Source Dec 26, 2023 10:16 AM Outpatient Encounter ADMIN PAT ACTIVTIES (MASNON[facility]) IHE Encounter Template Text not used by VA [...] 20 appointments. The data comes from all [facility] treatment facilities. Appointment Date/Time Appointment Type Appointme nt Facility Name May 15, 2024 10:30 AM AMBULATORY - MEDICINE [facility] May 23, 2024 10:30 AM [facility] - MEDIC[facility] Encounter Notes: All associated encounter notes This section contains the clinical notes associated to the Encounter. Date/Time Encounter Note(s) Provider Source Dec 26, 2023 10:16 AM ADMINISTRATIVE NOT E: LOCAL TITLE: CCC: SCHEDULING ADMINISTRATION STANDARD TITLE: ADMINISTRATIVE NOTE DATE OF NOTE: DEC 26, 2023@10:16:16 ENTRY DATE: DEC 26, 2023@10:16:17 AUTHOR: TAE VEGA COSIGNER: URGENCY: STATUS: COMPLETED CCC: SCHEDULING ADMINISTRATION Has ADDENDA Patient Demographics Patient Name: MAGDALENO GARCIA Patient Primary Phone: [phone] Patient Primary [address]: [address] [place] [address] Patient : 1955 Patient Age: 68 Caller/Recipient Relation to Patient: Self Administrative Administrative Note Comments: [facility] calls to schedule for an ear cleaning and wax build up. Call transferred to clinic. Please contact [facility] if not scheduled /veronica/ TAE VEGA AMSA Signed: 12/26/2023 10:16 12/26/2023 ADDENDUM STATUS: COMPLETED Pt call the clinic requesting to have ears cleaned prior to appointment with outside audiology to be checked for tinnitis. Pt instructed that he will need to do ear prep for 1-2 weeks and schedule an appt for a morning at 9 or 930. Pt instructed to apply equal parts water and hydrogen peroxide to each ear daily. Per pt he does this 2-3 times a week and need to have ears checked before appointment on 01/02/24. CM advised that first available ear wash is 01/02. Pt states that he needs ears checked and may not have wax build up. Pt wanting to walk into [facility] closer to home. Pt instructed not to walk into [facility] and that he would require a nurse visit. Offered same day nurse appt to have ears checked and instructed that if he has wax build up he will need to schedule an appt for ear cleaning and prep. Pt states that he does not want to drive to and will call his outside provider office. /veronica/ KEISHA JASON REGISTERED NURSE Signed: 12/26/2023 10:44 TAE VEGA [facility]
--- OUTSIDE RECORDS SUMMARY | 2024-07-28 16:26 | XMS_ITS ---
Author Name [facility] [place] Organization [facility] of [facility] ([place]) Address [address] [place] [address] Care Team Providers Care Harness Puller Name Role Phone ALFONSO ALEXIS Primary Care [...] Harris's Name Patient's Relationship to Policy Harris [facility] (WNR) MEDICARE ADVANTAGE [facility] (WNR) Jul 16, 2023 [id number] CARRIL,TH OMAS PATIENT MEDCO ([employer]) PRESCRIPT ION VNA PPO ACTIV E Feb 13, 2018 UVNAPPO [id number] [phone] CARRIL, OMAS PATIENT [facility] VEOL[facility] A Jul 16, 2018 [id number] [phone] CARRIL, OMAS PATIENT Selected Encounter This section includes the information on record at [place] for the Encounter. Date/Time Encounter Type Encounter Description Reason Provider Source May 15, 2024 10:30 AM OFFICE O/P EST MOD 30 MIN PRIMARY CARE/MEDICINE ICD-10-CM Q45.2 Congenital pancreatic cyst ALFONSO ALEXIS IHWilfrido Encounter Template Text not used by [place] Assessments - Encounter Diagnoses This section includes the primary and secondary diagnoses documented for the Encounter. Date/Time Primary/Secondary Diagnosis Diagnosis Name Provider Source May 15, 2024 10:57 AM PRIMARY Congenital pancreatic cyst ALFONSO ALEXIS [facility] May 15, 2024 10:57 AM SECONDARY Chronic kidney disease, stage 3a ALFONSO ALEXIS [facility] May 15, 2024 10:57 AM SECONDARY Cyst of kidney, acquired ALFONSO ALEXIS [facility] May 15, 2024 10:57 AM SECONDARY Encounter for immunization JAGDISH SMART [facility] May 15, 2024 10:57 AM SECONDARY Essential (primary) hypertension ALFONSO ALEXIS [facility] May 15, 2024 10:57 AM SECONDARY Fatty (change of) liver, not elsewhere classified ALFONSO ALEXIS [facility] May 15, 2024 10:57 AM SECONDARY Herpesviral infection, unspecified ALFONSO ALEXIS [facility] May 15, 2024 10:57 AM SECONDARY Male erectile dysfunction, unspecified ALFONSO ALEXIS [facility] May 15, 2024 10:57 AM SECONDARY Obstructive sleep apnea (adult) (pediatric) ALFONSO ALEXIS [facility] May 15, 2024 10:57 AM SECONDARY Prediabetes ALFONSO ALEXIS [facility] May 15, 2024 10:57 AM SECONDARY Sensorineural hearing loss, bilateral ALFONSO ALEXIS [facility] May 15, 2024 10:57 AM SECONDARY Spondylosis w/o myelopathy or radiculopathy, lumbar region ALFONSO ALEXIS [facility] May 15, 2024 10:57 AM SECONDARY Tinnitus, unspecified ear ALFONSO ALEXIS [facility] May 15, 2024 10:57 AM SECONDARY Vitamin D deficiency, unspecified YAZMIN ALEXISSSPAKO Marcos [facility] Plan of Treatment: Future Appointments (+ 6 months) and Future Tests (+/- 45 days) The Plan of Treatment section includes future care activities for the patient from all [place] treatmentfacilities. This section includes future appointments and future orders which are active, pending or scheduled. Future Appointments This section includes appointments that were scheduled to occur 6 months from the date of the Encounter, up to a maximum of 20 appointments. The data comes from all [place] treatment facilities. Appointment Date/Time Appointment Type Appointme nt Facility Name May 23, 2024 10:30 AM AMBULATORY - MEDICINE [facility] Vital Signs: All taken on the encounter date This section contains inpatient and outpatient Vital Signs collected on the date of the Encounter. Date/Time Temperature Pulse Blood Pressure Respiratory Rate SP02 Pain Height Weight Body Mass Index Source May 15, 2024 10:53 AM 150/80 [facility] May 15, 2024 10:16 AM 152/82 [facility] May 15, 2024 10:12 AM 98.2 83 147/84 16 97 3 191.1 31 [facility] Immunizations: All administered on the encounter date This section contains immunizations associated to the Encounter. Immunization Series Date Issued Reaction Comments INFLUENZA, HIGH-DOSE, TRIVALENT, PF May 15 Social History: Smoking Status (Most current) and Tobacco Use (All prior to encounter date) This section includes the most current, and the historical, smoking and tobacco- related health factors from the [place] facility where the Encounter took place. Current Smoking Status This section includes the most current smoking, or tobacco-related health factor, from the [place] facility where the Encounter took place. Date/Time Current Smoking Status Comment Davi ity Oct 18, 2023 11:00 AM [place]-TOBACCO NEVER USED [facility] Tobacco Use History This section includes a history of the smoking, or tobacco-related health factors, that were collected on or before the date of the Encounter. The data comes from the [place] facility where the Encounter took place. Date/Time Smoking Status/Tobacco Use Comment F acility Oct 13, 2022 09:00 AM VA-TOBACCO FORMER USER [facility] Oct 13, 2022 09:00 AM VA-TOBACCO QUIT 15 YRS OR MORE [facility] Oct 13, 2021 10:00 AM VA-TOBACCO NEVER USED [facility] Sep 22, 2020 09:30 AM VA-TOBACCO FORMER USER [facility] Sep 22, 2020 09:30 AM VA-TOBACCO QUIT 15 YRS OR MORE [facility] Encounter Notes: All associated encounter notes This section contains the clinical notes associated to the Encounter. Date/Time Encounter Note(s) Provider Source May 15, 2024 10:20 AM PRIMARY CARE NOTE: LOCAL TITLE: PRIMARY CARE PROVIDER ESTABLISHED VISIT ST STANDARD TITLE: PRIMARY CARE NOTE DATE OF NOTE: MAY 15, 2024@10:20 ENTRY DATE: MAY 15, 2024@10:20:38 AUTHOR: ALFONSO ALEXIS COSIGNER: URGENCY: STATUS: COMPLETED REASON FOR VISIT/CHIEF COMPLAINT: routine HPI: This is a 68 year old presenting today for management of chronic disease Retired in October, walks 2 miles every morning Helps his 93 year old mom Amlodipine 5mg started on 05/01/2024 by his outside PCP for uncontrolled HTN Had MRI lumbar spine 03/06/[address] Moustapha Jimenez Mild lumbar spondylosis, worsened from 04/14/2013 Moderate to severe facet joint osteoarthritis Outside Providers: PCP: Dr. Baker Sleep Apnea: [...] noted -Current medications: HCTZ 12.5mg/losartan 100mg, metoprolol 200mg, amlodipine 5mg (started 05/01/2024 via outside PCP) -Renal function: CREATININE 1.33 H mg/dL 10/18/2023 11:43 EGFR (CKD-EPI 2020) 58.59 10/18/2023 11:43 -Denies any chest pain, shortness of breath, edema, headaches or blurred vision -Home readings: prior to prednisone 112/64; 118/72 Prediabetes: -a1c 5.9% (10/2023); 5.9% (10/2022); 5.9% (09/2021) Hepatic Steatosis: -CT 11/2021: Liver: Diffuse hepatic steatosis is present with sparing along the gallbladder fossa. -MRI 11/2022: diffuse hepatic steatosis CKD Stage 3a: -Creatinine: 1.3; egfr: 58 ED: -sildenafil 100mg HSV: -Valacyclovir 500mg BID PRN -Flare 3 weeks ago Vitamin D Def: -45.3 (10/2023); 28 (09/2021) Renal Cysts: -CT 11/2021: Numerous bilateral simple [...] 2 years to confirm stability. DUE 11/2024 Lumbar Spondylosis: -initially had radicular pain, was seeing Chiropractor once a week without relief -Outside PCP sent him to see Neurosurgery, Dr. Moustapha Jimenez -Was getting injections/ablation -Had injection in right piriformis muscle -Getting an epidural next month -Started Prednisone yesterday What is your goal for today: routine visit SOCIAL HISTORY: NICOTINE: None ALCOHOL: None ILLICIT DRUGS: None SOURCE(S) OF HISTORY: Patient PAST MEDICAL HISTORY: 1) Erectile Dysfunction ([facility] [id number]) 2) HTN - Hypertension ([facility] [id number]) 3) Herpes simplex type 1 infection 4) Obstructive Sleep Apnea of Adult ([facility] [id number]) 5) Vitamin D Deficiency ([facility] [id number]) 6) Prediabetes ([facility] [id number]) 7) Steatosis of liver 8) Multiple renal [...] MINUTES PRIOR TO SEXUAL ACTIVITY) - LIMIT 6 DOSES PER 30 DAYS 4) VALACYCLOVIR HCL [...] Musculoskeletal: denies arthralgias,myalgias, joint swelling, joint stiffness, neck pain,or injury +back pain Skin: denies new lesions, pruritis, hair changes, [...] as listed in the electronic record): Temperature: 98.2 F [36.8 C] (05/15/2024 10:12) BP: 152/82 (05/15/2024 10:16) Pulse: 83 (05/15/2024 10:12) Resp: 16 (05/15/2024 10:12) PulsOx: 97% (05/15/2024 10:12) Pain: 3 (05/15/2024 10:12) Weight: Measurement DT WEIGHT LB(KG)[BMI] 05/15/2024 10:12 191.1(86.68)[31*] 10/18/2023 10:53 206.4(93.62)[33*] 08/21/2023 10:55 206.6(93.71)[33*] General: pleasant, well appearing adult in no acute distress. HEENT: mucus membranes moist, oropharynx clear, TMs normal, EOMI, PERRLA Neck: supple, no lymphadenopathy or thyromegaly, no carotid bruits Heart: regular rate and rhythm; no murmurs, rubs , or gallops Lungs: CTA BL; no wheezes, rhonchi, or rales Abdomen: soft, nontender, nondistended, bowel sounds normal Extremities: warm, well-perfused; no clubbing, cyanosis, or edema; 2+ DP/PT pulses BL Skin: no rashes or lesions noted; good turgor Neuro: A&O x 3, gait steady and normal-based Psych: appropriate mood and effect. DATA REVIEW: HGA1C 5.9 % 10/18/2023 11:43 Lipid Panel: TRIGLYCERIDE 110 mg/dL 10/18/2023 11:43 CHOLESTEROL 172 mg/dL 10/18/2023 11:43 HDL(New) 35 L mg/dL 10/18/2023 11:43 CALCULATED LDL 115 mg/dL 10/18/2023 11:43 CMP: SODIUM 138 mEq/L 10/18/2023 11:43 POTASSIUM 4.0 mEq/L 10/18/2023 11:43 CHLORIDE 107 mEq/L 10/18/2023 11:43 UREA NITROGEN 20.2 mg/dL 10/18/2023 11:43 CREATININE 1.33 H mg/dL 10/18/2023 11:43 CALCIUM 9.1 mg/dL 10/18/2023 11:43 PROTEIN 7.2 g/dL 10/18/2023 11:43 ALBUMIN 4.2 g/dL 10/18/2023 11:43 ALKALINE PHOSPHATASE 78 U/L 10/18/2023 11:43 ALT/SGPT 42 H U/L 10/18/2023 11:43 AST/SGOT 27 U/L 10/18/2023 11:43 TOTAL BILIRUBIN 0.9 mg/dL 10/18/2023 11:43 CARBON DIOXIDE 22 mEq/L 10/18/2023 11:43 GLUCOSE 110 H mg/dL 10/18/2023 11:43 EGFR (CKD-EPI 2020) 58.59 10/18/2023 11:43 CBC: WBC 10.4 10*3/uL 10/18/2023 11:43 RBC 4.77 10*6/uL 10/18/2023 11:43 HGB 15.0 g/dL 10/18/2023 11:43 HCT 42.0 % 10/18/2023 11:43 MCV 88.1 fL 10/18/2023 11:43 MCH 31.4 pg 10/18/2023 11:43 MCHC 35.7 g/dL 10/18/2023 11:43 RDW 12.9 % 10/18/2023 11:43 PLT 265 10*3/uL 10/18/2023 11:43 MPV 10.2 fL 10/18/2023 11:43 NEUTROPHILS, AUTO % 61 % 10/18/2023 11:43 LYMPHOCYTES, AUTO % 26 % 10/18/2023 11:43 MONOCYTES, AUTO % 8 % 10/18/2023 11:43 EOSINOPHILS, AUTO % 3 % 10/18/2023 11:43 BASOPHILS, AUTO % 1 % 10/18/2023 11:43 NEUTROPHILS, ABSOLUTE 6.34 10*3/uL 10/18/2023 11:43 LYMPHOCYTES, ABSOLUTE 2.67 10*3/uL 10/18/2023 11:43 MONOCYTES, ABSOLUTE 0.87 H 10*3/uL 10/18/2023 11:43 EOSINOPHILS, ABSOLUTE 0.32 10*3/uL 10/18/2023 11:43 BASOPHILS, ABSOLUTE 0.07 10*3/uL 10/18/2023 11:43 PSA: PROST. SPECIFIC AG.(PB-STL) 2.379 ng/mL 10/18/2023 11:43 Result: Acceptable Follow-up Action: Re check prior to next visit. Data results reviewed with patient and/or caregiver. ASSESSMENT/PLAN: 1)Pancreatic Cyst: reviewed; MRI due in 11/2024 2)VONDA: compliant with CPAP 3)HTN: uncontrolled, coorelates with steroid injections/oral medications. Blood pressure cuff given in clinic. Monitor blood pressure at home, goal <130/80. Nurse visit next week for blood pressure check 4)Erectile Dysfunction: Continue current medications on as needed basis. The patient's symptoms of erectile dysfunction are stable at this point. If medications fail to give desired effect, will refer to urology or consider alternative treatments. 5)Herpes: At this time, the patient's outbreaks are stables. Continue current medications. Encouraged the patient to continue limiting exposure to others, especially when outbreak is present. 6)Vitamin D Def: mendoza OTC, trend levels 7)Prediabetes: repeat a1c, encouraged diet and exercise 8)Hepatic Steatosis: trend LFT's, encouraged diet and exercise 9)Renal Cysts: declines renal at this time, will continue to monitor 10)Tinnitus/Hearing Loss: established with Audiology, no acute issues or concerns 11)CKD Stage 3a: trend renal function, avoid nephrotoxic medications 12)Lumbar Spine OA: MRI as above, will [facility] to [facility]. Continue to work with outside Pain Management 13) HME: Labs 10/2023 Colonoscopy: 11/30/2022 at [facility]; Dr. Bon Ayala; repeat 5 years LDCT: N/A Immunizations: COVID-19 (Pfizer): 08/23/2020; 09/15/2020; 03/25/2021; declines booster PCV 20: 04/14/2022 Td: 06/23/2019 Shingrix: 06/22/2021; 10/13/2021 RETURN TO CLINIC: Phone visit 05/23 for blood pressure check Clinic 6 months SUMMARY STATEMENT: Plan of care has been discussed with including expected therapeutic benefits and potential side effects of prescribed medication and treatments. [place] verbalizes understanding and is in agreement with the plan of care. Patient was instructed to keep all scheduled appointments and contact exhibit preparator for any additional problems. [facility] - PHP MAP: PERSONAL HEALTH PLAN INVENTORY & MAP Waubay's Response: staying active, walking daily, helps his mom SHARED GOALS blood pressure, back pain HTN Assess for Elevated BP>=140/90 - N,P,PH: Repeat blood pressure: 150/80 /es/ ALFONSO ALEXIS MSN,PROGRAMS ASSISTANT-BC NURSE PRACTITIONER Signed: 05/15/2024 10:58 ALFONSO ALEIXS [facility] May 15, 2024 10:13 AM NURSING NOTE: LOCAL TITLE: V15 PACT FACE TO FACE NOTE STL STANDARD TITLE: NURSING NOTE DATE OF NOTE: MAY 15, 2024@10:13 ENTRY DATE: MAY 15, 2024@10:13:26 AUTHOR: JAGDISH SMART EXP COSIGNER: URGENCY: STATUS: COMPLETED V15 PACT FACE TO FACE NOTE STL Has ADDENDA Provider Visit: Patient Identifiers : Full Name Date of Reason for visit: Established Follow-Up Mode of Arrival: Ambulatory Allergy Review: AMPICILLIN Allergy list reviewed and remains current. Recent Vital Signs: Temperature: 98.2 F [36.8 C] (05/15/2024 10:12) Pulse: 83 (05/15/2024 10:12) Respiration: 16 (05/15/2024 10:12) B/P: 147/84 (05/15/2024 10:12) Pain: 3 (05/15/2024 10:12) Wt: 191.1 lb [86.68 kg] (05/15/2024 10:12) Ht: 66 in [167.6 cm] (08/21/2023 10:55) BMI: 30.9 POX: 97% (05/15/2024 10:12) Would you like to discuss any personal problem, family problem, alcohol use, drug use, or a mental or emotional illness? No My [facility] ([facility]), please select appointment type: Face to face: Yes-Do you have an upgraded (Premium) account which gives you the added benefit of Secure Messaging with your Primary Care Provider and refilling your prescriptions online? Contact provided Primary Care phone number and encouraged to call if any questions or concerns. Review that after hours nurse line [phone] and emergency room are available 05/02 for patient use. Contact verbalized good understanding. Alcohol Use Screen (AUDIT-C) - V: Alcohol Screen: SCREEN FOR ALCOHOL (AUDIT-C) An alcohol screening test (AUDIT-C) was negative (score=1). 1. How often did you have a drink containing alcohol in the past year? Consider a drink to be a 12 ounce can or bottle of regular beer, 8 ounces of malt liquor, a 5 ounce glass of table wine, or a 1.5 ounce shot of liquor (like scotch, gin, or vodka). Monthly or less 2. How many drinks containing alcohol did you have on a typical day when you were drinking in the past year? One or two drinks 3. How often did you have six or more drinks on one occasion in the past year? Never PTSD Screening - V: PC-PTSD-5 A PTSD screening test (PC-PTSD-5) was negative (score=0). IN THE PAST MONTH, have you ever had any experience that was so frightening, horrible or traumatic. For example: A serious accident or fire a physical or sexual assault or abuse An earthquake or flood A war Seeing someone be killed or seriously injured Having a loved one through homicide or suicide 1. Have you ever experienced this kind of event? NO 2. Had nightmares about the event(s) or thought about the event(s) when you did not want to? Response not required due to responses to other questions. 3. Tried hard not to think about the event(s) or went out of your way to avoid situations that reminded you of the event(s)? Response not required due to responses to other questions. 4. Been constantly on guard, watchful, or easily startled? Response not required due to responses to other questions. 5. [place] numb or detached from people, activities, or your surroundings? Response not required due to responses to other questions. 6. [place] guilty or unable to stop blaming yourself or others for the event(s) or any problems the event(s) may have caused? Response not required due to responses to other questions. /veronica/ Jagdish Smart LPN LICENSED PRACTICAL NURSE Signed: 05/15/2024 11:10 05/15/2024 ADDENDUM STATUS: COMPLETED Influenza Immunization - L,N,P,PH,U: Influenza, High-Dose, Trivalent, Preservative Free (Fluzone-Syringe) Administered: INFLUENZA, HIGH-DOSE, TRIVALENT, PF Date Administered: May 15, 2024 10:30 Sample Processor: SANOFI PASTEUR Lot: [id number] Exp Date: Jan 12, 2025 [facility]: [id number] Admin Route/Site: INTRAMUSCULAR/RIGHT DELTOID Dosage: 0.5mL Vaccine Information Statement(s): INFLUENZA(FLU) VACC(INACTIVATED OR RECOMBINANT)VIS Feb 18, 2021 ([place]) Order By: Policy Administered By: Jagdish Smart The Influenza Vaccine Information Statement (VIS) was reviewed with the patient/caregiver which lists the benefits and risks of the vaccine and the risks of not receiving the Influenza vaccine. The patient/caregiver denied any prior severe reaction to this vaccine or its components or a severe allergic reaction, such as anaphylaxis, to any vaccine or any injectable therapy. The patient/caregiver gave verbal consent to receive the vaccine. /veronica/ Jagdish Smart LPN LICENSED PRACTICAL NURSE Signed: 05/15/2024 11:15 JAGDISH SMART [facility]
--- OUTSIDE RECORDS SUMMARY | 2024-07-28 16:26 | XMS_ITS | Encounter Summary ---
Author Name [facility] [place] Organization [place] Address [address] [place] [address] Care Team Providers Care Drop Wire Hanger Name Role Phone ALEXIS ALFONSO Primary Care Provider Unavailabl e Insurance Providers: [...] Harris's Name Patient's Relationship to Policy Harris [facility] (WNR) MEDICARE ADVANTAGE [facility] (WNR) Jul 16, 2023 [id number] CARRIL,TH OMAS PATIENT [employer] ([employer]) PRESCRIPT ION VNA PPO ACTIV E Feb 13, 2018 UVNAPPO [id number] [phone] CARRIL, OMAS PATIENT [facility] A Jul 16, 2018 [id number] [phone] CARRIL, OMAS PATIENT Selected Encounter This section includes the information on record at [place] for the Encounter. Date/Time Encounter Type Encounter Description Reason Provider Source Aug 24, 2023 07:30 AM TYMPANOMETRY & REFLEX THRESH AUDIOLOGY ICD-10-CM H90.3 Sensorineural hearing loss, bilateral VEST,NATASHA A IHE Encounter Template Text not used by [facility] Assessments - Encounter Diagnoses This section includes the primary and secondary diagnoses documented for the Encounter. Date/Time Primary/Secondary Diagnosis Diagnosis Name Provider Source Aug 24, 2023 08:26 AM PRIMARY Sensorineural hearing loss, bilateral CARROLLMEGHANGREGG RAUDEL Arguello [facility] Plan of Treatment: Future Appointments (+ 6 months) and Future Tests (+/- 45 days) The Plan of Treatment section includes future care activities for the patient from all [place] [facility]. This section includes future appointments and future orders which are active, pending or scheduled. Future Appointments This section includes appointments that were scheduled to occur 6 months from the date of the Encounter, up to a maximum of 20 appointments. The data comes from all [place] treatment facilities. Appointment Date/Time Appointment Type Appointme nt Facility Name Oct 18, 2023 11:00 AM AMBULATORY - MEDICINE [facility] Social History: Smoking Status (Most current) and Tobacco Use (All prior to encounter date) This section includes the most current, and the historical, smoking and tobacco- related health factors from the [place] facility where the Encounter took place. Current Smoking Status This section includes the most current smoking, or tobacco-related health factor, from the [place] facility where the Encounter took place. Date/Time Current Smoking Status Comment Davi ity Oct 13, 2022 09:00 AM [place]-TOBACCO FORMER USER [facility] Tobacco Use History This section includes a history of the smoking, or tobacco-related health factors, that were collected on or before the date of the Encounter. The data comes from the [place] facility where the Encounter took place. Date/Time Smoking Status/Tobacco Use Comment F acility Oct 13, 2022 09:00 AM VA-TOBACCO QUIT 15 YRS OR MORE [facility] Oct 13, 2021 10:00 AM VA-TOBACCO NEVER USED [facility] Sep 22, 2020 09:30 AM VA-TOBACCO FORMER USER [facility] Sep 22, 2020 09:30 AM [place]-TOBACCO QUIT 15 YRS OR MORE [facility] Encounter Notes: All associated encounter notes This section contains the clinical notes associated to the Encounter. Date/Time Encounter Note(s) Provider Source Aug 24, 2023 07:20 AM AUDIOLOGY E & M NO TE: LOCAL TITLE: AUDIO EVALS ST STANDARD TITLE: AUDIOLOGY E & M NOTE DATE OF NOTE: AUG 24, 2023@07:20 ENTRY DATE: AUG 24, 2023@07:20:23 AUTHOR: NATASHA FROST COSIGNER: URGENCY: STATUS: COMPLETED SUBJECT: Audio Purpose of appt: audio [x] patient initiated visit [] provider initiated visit Case history: Otoscopic evaluation normal AU. TM's visible AU. Pt's main complaint is bilateral hearing loss. Reported constant, bilateral tinnitus described as crickets . Pt reported fluid behind the right ear, which has since resolved. Pt also reported vertigo 2 weeks ago. Pt has seen a provider to address the vertigo and reports symptoms are improving. Pt denied pain, pressure, otosurgery or recent ear infections. Last eval 06/27/2018. Pt has 08/09/18 SIVANTOS PURE [id number] CONNIE's with canal lock molds. RESULTS: Right Ear- Audiometry (air and/or bone conduction): normal/mild 250-1000 Hz slopoing to moderate/moderately severe SNHL 8037-7757 Hz SRT: 35 dB WRS: 92% (last eval 80%) Tympanogram: type A, WNL Reflexes: ipsi: present 500-4000 Hz contra: present 500-4000 Hz Left Ear- Audiometry (air and/or bone conduction): mild 250-500 Hz sloping to moderately severe 2808-0500 Hz. SRT: 45 dB WRS: 80% (last eval 60%) Tympanogram: type A, WNL Reflexes: ipsi: present 500-4000 Hz contra: present 500-4000 Hz Pt is a candidate for hearing aids. Counseled pt regarding degree of loss. Discussed full-time commitment and realistic expectations of hearing aids. HAC to follow. Discussed process for compensation and purposes regarding tinnitus. Recommendations: 1. Continue with current amplification. 2. Audio re-eval 2-5 years or sooner if pt notices changes. Completed by Deb Bauer, doctoral audiology resident. The information above has been reviewed by this provider. I am in agreement with the treatment plan as outlined. /veronica/ Barber DE [place] Staff Legal Secretary Receptionist, Ignacia, Surgery Service Signed: 08/24/2023 09:14 NATASHA FROST [facility]
--- OUTSIDE RECORDS SUMMARY | 2024-07-28 16:26 | XMS_ITS | Encounter Summary ---
Author Name [place] Address [address] [place] [address] Care Team Providers Care Framing And Hanging Name Role Phone ALEXIS ALFONSO Primary Care [...] Harris's Name Patient's Relationship to Policy Harris [facility] MCR (WNR) MEDICARE ADVANTAGE [facility] (WNR) Jul 16, 2023 [id number] CARRIL,TH OMAS PATIENT MEDCO ([employer]) PRESCRIPT ION VNA PPO ACTIV E Feb 13, 2018 UVNAPPO [id number] [phone] CARRIL, OMAS PATIENT [facility] A Jul 16, 2018 [id number] [phone] CARRIL, OMAS PATIENT Selected Encounter This section includes the information on record at [place] for the Encounter. Date/Time Encounter Type Encounter Description Reason Provider Source Aug 24, 2023 07:30 AM HEARING AID FITTING/CHECKIN G AUDIOLOGY ICD-10-CM H90.3 Sensorineural hearing loss, bilateral VEST,NATASHA A IHE Encounter Template Text not used by [facility] Assessments - Encounter Diagnoses This section includes the primary and secondary diagnoses documented for the Encounter. Date/Time Primary/Secondary Diagnosis Diagnosis Name Provider Source Aug 24, 2023 08:32 AM PRIMARY Sensorineural hearing loss, bilateral LEWGREGG RAUDEL Arguello [facility] Plan of Treatment: Future Appointments (+ 6 months) and Future Tests (+/- 45 days) The Plan of Treatment section includes future care activities for the [facility] [place] [facility] This section includes future appointments and future orders which are active, pending or scheduled. Future Appointments This section includes appointments that were scheduled to occur 6 months from the date of the Encounter, up to a maximum of 20 appointments. The data comes from all [place] treatment facilities. Appointment Date/Time Appointment Type Appointme nt Facility Name Oct 18, 2023 11:00 AM AMBULATORY - MEDICINE [facility] Social History: Smoking Status (Most current) and Tobacco Use (All prior to encounter date) This section includes the most current, and the historical, smoking and tobacco- related health factors from the [place] facility where the Encounter took place. Current Smoking Status This section includes the most current smoking, or tobacco-related health factor, from the [place] facility where the Encounter took place. Date/Time Current Smoking Status Comment Davi ity Oct 13, 2022 09:00 AM [place]-TOBACCO FORMER USER [facility] Tobacco Use History This section includes a history of the smoking, or tobacco-related health factors, that were collected on or before the date of the Encounter. The data comes from the [place] facility where the Encounter took place. Date/Time Smoking Status/Tobacco Use Comment F acility Oct 13, 2022 09:00 AM VA-TOBACCO QUIT 15 YRS OR MORE [facility] Oct 13, 2021 10:00 AM VA-TOBACCO NEVER USED [facility] Sep 22, 2020 09:30 AM VA-TOBACCO FORMER USER [facility] Sep 22, 2020 09:30 AM [place]-TOBACCO QUIT 15 YRS OR MORE [facility] Encounter Notes: All associated encounter notes This section contains the clinical notes associated to the Encounter. Date/Time Encounter Note(s) Provider Source Aug 24, 2023 08:28 AM AUDIOLOGY PLUMBING AND HEATING CONTRACTOR NOTE: LOCAL TITLE: HEARING AIDS ST STANDARD TITLE: AUDIOLOGY PLUMBING AND HEATING CONTRACTOR NOTE DATE OF NOTE: AUG 24, 2023@08:28 ENTRY DATE: AUG 24, 2023@08:28:20 AUTHOR: NATASHA FROST EXP COSIGNER: URGENCY: STATUS: COMPLETED SUBJECT: Audio HAC: Pt has 08/09/18 [place] PURE [phone] 7NX CONNIE's with canal lock molds. Brushed microphone ports. Changed Quickguard filters. Connected aids to software. Datalogging since 07/04/2018 indicates total of 3802 hrs for average of 3 hrs/day. Reset datalogging. Reprogrammed aids to today's hearing test. Chester reported balance between ears and comfort with gain, but reported an echo on his own voice. Ran OVP and adjusted to maximum. Pt confirmed improvement in sound quality. Requested Quickguard filters to be ordered to address on file. Verified address: [address] [place] [phone] Completed by Deb Bauer, doctoral audiology resident. The information above has been reviewed by this provider. I am in agreement with the treatment plan as outlined. /veronica/ Barber [place] Staff Survey Cad TechnicianIgnacia, Surgery Service Signed: 08/24/2023 09:14 NATASHA FROST [facility]
--- OUTSIDE RECORDS SUMMARY | 2024-07-28 16:26 | XMS_ITS | Encounter Summary ---
Author Name [facility] [place] Organization [place] Address [address] [place] [address] Care Team Providers Care Design Printing Machine Set Up Operator Name Role Phone BALDERRAMA ALFONSO Primary Care Provider Unavailabl e Insurance [...] Harris's Name Patient's Relationship to Policy Harris [facility] MCR (WNR) MEDICARE ADVANTAGE MCR (WNR) Jul 16, 2023 [id number] CARRIL,TH OMAS PATIENT MEDCO ([employer]) PRESCRIPT ION VNA PPO ACTIV E Feb 13, 2018 UVNAPPO 257A [id number] [phone] CARRIL, OMAS PATIENT [facility] A Jul 16, 2018 [id number] [phone] CARRIL, OMAS PATIENT Selected Encounter This section includes the information on record at [place] for the Encounter. Date/Time Encounter Type Encounter Description Reason Provider Source Oct 12, 2023 11:52 AM Outpatient Encounter TELEPHONE PRIMARY CARE KEISHA JASON Encounter Template Text not used by [place] Plan of Treatment: Future Appointments (+ 6 [...] 20 appointments. The data comes from all [place] treatment facilities. Appointment Date/Time Appointment Type Appointme nt Facility Name Oct 18, 2023 11:00 AM AMBULATORY - MEDICINE [facility] Lab Results: +/- 30 days of the encounter This section includes the Chemistry and Hematology Lab Results on record with [place] for the patient. Radiology Reports and Pathology Reports are provided separately, in subsequent sections. Lab Results This section contains the Chemistry/Hematology Results that were resulted 30 days before or 30 daysafter the date of the Encounter. Date/Time Source Result Type Result - Unit Interpretation Reference Range Comment Oct 18, 2023 11:[address] [facility] MICRAL/CREAT PROFILE (STL) Specimen Type: URINE No comment entered. Ordering Provider: ALFONSO BALDERRAMA Report Released Date/Time: Oct 18, 2023 11:22 AM Reporting Lab: [facility] [facility] [phone] Performing Lab: [facility] [phone] URINE ALBUMIN (PB-STL) 7 mg/L No range refer to micral/crea t ratio uACR (STL) 5 mg/g 0-29 CREATININE URINE/OTHERS 143.3 mg/dL 63.0-166.0 Oct 18, 2023 11:[address] [facility] URINALYSIS (STL-PB) Specimen Type: URINE No comment entered. Ordering Provider: ALFONSO BALDERRAMA Report Released Date/Time: Oct 18, 2023 11:22 AM Reporting Lab: [facility] [phone] Performing Lab: [facility] [phone] URINE COLOR Light-Yellow Yellow U.BILIRUBIN Negative mg/dL Negative U.PH 6.5 5.0-8.0 APPEARANCE Clear Clear U.NITRITE Negative mg/dL Negative URN.GLUCOSE Normal mg/dL Negative URN.PROTEIN Negative mg/dL Negative-20 URN.UROBILINOGE N Normal mg/dL Normal URN.BLOOD Negative mg/dL Negat peggy-Tr jen URN.KETONES Negative mg/dL Neg ative-Tr jen URN.LEUK.EST. Negative mg/dL N egative-Tr jen URN.SPECIFIC GRAVITY 1.017 1.005-1.029 Oct 18, 2023 11:43 AM [facility] B12 Specimen Type: SERUM Comment: The listed sex of this patient may not be a typical indication for this test. Therefore, reference ranges or interpretive criteria listed may not be valid. Clinical correlation suggested. Ordering Provider: ALFONSO BALDERRAMA Report Released Date/Time: Oct 18, 2023 11:22 AM Reporting Lab: [facility] [place] [address] Performing Lab: [facility] [place] [address] B12 >2000 pg/mL H 213-816 Oct 18, 2023 11:43 AM [facility] FREE T4 (STL) Specimen Type: PLASMA Comment: No hemolysis noted. Ordering Provider: ALFONSO BALDERRAMA Report Released Date/Time: Oct 18, 2023 11:22 AM Reporting Lab: [facility] [place] [address] Performing Lab: [facility] [phone] FREE T4 (STL) 1.00 ng/mL 0.70-1.48 Oct 18, 2023 11:43 AM [facility] TSH PANEL (STL) Specimen Type: PLASMA Comment: No hemolysis noted. Ordering Provider: ALFONSO BALDERRAMA Report Released Date/Time: Oct 18, 2023 11:22 AM Reporting Lab: [facility] [phone] Performing Lab: [facility] [address] [place] [address] TSH 1.627 u[IU]/mL 0.470-5.000 Oct 18, 2023 11:43 AM [facility] VITAMIN D, 25-HYDROXY Specimen Type: SERUM Comment: The listed sex of this patient may not be a typical indication for this test. Therefore, reference ranges or interpretive criteria listed may not be valid. Clinical correlation suggested. Ordering Provider: ALFONSO BALDERRAMA Report Released Date/Time: Oct 18, 2023 11:22 AM Reporting Lab: [facility] [place] [address] Performing Lab: [facility] [place] [address] VITAMIN D, 25-HYDROXY 45.3 ng/mL 30-96 Oct 18, 2023 11:43 AM [facility] PROST. SPECIFIC AG.(PB-STL) Specimen Type: SERUM Comment: The listed sex of this patient may not be a typical indication for this test. Therefore, reference ranges or interpretive criteria listed may not be valid. Clinical correlation suggested. Ordering Provider: ALFONSO BALDERRAMA Report Released Date/Time: Oct 18, 2023 11:22 AM Reporting Lab: [facility] [place] [address] Performing Lab: [facility] [place] [address] PROST. SPECIFIC AG.(PB-STL) 2.379 ng/mL 0.000-4.000 Oct 18, 2023 11:43 AM [facility] LIPID PANEL (STL) Specimen Type: PLASMA Comment: No hemolysis noted. Ordering Provider: ALFONSO BALDERRAMA Report Released Date/Time: Oct 18, 2023 11:22 AM Reporting Lab: [facility] [place] [address] Performing Lab: [facility] [place] [address] CHOLESTEROL 172 mg/dL 0-200 TRIGLYCERIDE 110 mg/dL 0-150 CALCULATED LDL 115 mg/dL See Interp HDL(New) 35 mg/dL L > 40 Oct 18, 2023 11:43 AM [facility] COMPREHENSIVE METABOLIC PANEL Specimen Type: PLASMA Comment: No hemolysis noted. Ordering Provider: ALFONSO BALDERRAMA Report Released Date/Time: Oct 18, 2023 11:22 AM Reporting Lab: [facility] [place] [phone] Performing Lab: [facility] [place] [phone] CREATININE 1.33 mg/dL H 0.70-1.30 UREA NITROGEN [...] 58.59 >60 Oct 18, 2023 11:43 AM [facility] CBC Specimen Type: BLOOD No comment entered. Ordering Provider: ALFONSO BALDERRAMA Report Released Date/Time: Oct 18, 2023 11:22 AM Reporting Lab: [facility] [place] [phone] Performing Lab: [facility] [place] [address] WBC 10.4 10*3/uL 3.6-11.2 RBC 4.77 10*6/uL [...] 10*3/uL 0.00-0.20 Oct 18, 2023 11:[address] [facility] HGA1C Specimen Type: BLOOD No comment entered. Ordering Provider: ALFONSO BALDERRAMA Report Released Date/Time: Oct 18, 2023 11:22 AM Reporting Lab: [facility] [phone] Performing Lab: [facility] [address] HGA1C 5.9 4.0-6.0 Encounter Notes: All associated encounter notes This section contains the clinical notes associated to the Encounter. Date/Time Encounter Note(s) Provider Source Oct 12, 2023 11:52 AM NURSING NOTE: LOCAL TITLE: V15 PACT TELEPHONE CONTACT NOTE [facility] TITLE: NURSING NOTE DATE OF NOTE: OCT 12, 2023@11:52 ENTRY DATE: OCT 12, 2023@11:52:50 AUTHOR: KEISHA JASON COSIGNER: URGENCY: STATUS: COMPLETED Patient/Other contacted: Patient Patient Identifiers : Full Name Date of Appointment Reminder: Outbound call to patient to remind of upcoming: Provider in-person with TAYLER Balderrama Appointment is scheduled for: Oct@11:00 Appointment type: In-person, instructed to: Arrive 15 mins early to check-in allowing time for traffic and parking. Clinical reminders: No applicable nurse clinical reminders due at the time of this encounter. Encouraged to contact PC Team with questions/concerns or if need to reschedule/cancel appointment. Provided/reviewed the nurse advice line (ext [phone]) for medical needs after hours. Contact understanding verified by teach back: Yes Total time spent on phone: 2 minutes /veronica/ KEISHA JASON REGISTERED NURSE Signed: 10/12/2023 11:53 KEISHA JASON [facility]
--- OUTSIDE RECORDS SUMMARY | 2024-07-28 16:27 | XMS_ITS | Encounter Summary ---
Author Name [place] Address [address] [place] [address] Care Team Providers Care Nitrator Operator Name Role Phone REUBEN ALFONSO Primary Care Provider Unavailabl e Insurance [...] Harris's Name Patient's Relationship to Policy Harris [facility] MCR (WNR) MEDICARE ADVANTAGE [facility] (WNR) Jul 16, 2023 [id number] CARRIL,TH OMAS PATIENT [employer]CO ([employer]) PRESCRIPT ION VNA PPO ACTIV E Feb 13, 2018 UVNAPPO 257A [id number] [phone] CARRIL, OMAS PATIENT [facility] A Jul 16, 2018 [id number] [phone] CARRIL, OMAS PATIENT Selected Encounter This section includes the information on record at [place] for the Encounter. Date/Time Encounter Type Encounter Description Reason Provider Source Jun 23, 2024 03:36 PM HEARING AID CHECK BOTH EARS AUDIOLOGY ICD-10-CM H90.3 Sensorineural hearing loss, bilateral VEST,NATASHA A IHE Encounter Template Text not used by VA Assessments - Encounter Diagnoses This section includes the primary and secondary diagnoses documented for the Encounter. Date/Time Primary/Secondary Diagnosis Diagnosis Name Provider Source Jun 23, 2024 03:39 PM PRIMARY Sensorineural hearing loss, bilateral NATASHA FROST [facility] Plan of Treatment: Future Appointments (+ 6 months) and Future Tests (+/- 45 days) The Plan of Treatment section includes future care activities for the patient from all [place] [facility]. This section includes future appointments and future orders which are active, pending or scheduled. Future Appointments This section includes appointments that were scheduled to occur 6 months from the date of the Encounter, up to a maximum of 20 appointments. The data comes from all [place] treatment facilities. Appointment Date/Time Appointment Type Appointme nt Facility Name November 13, 2024 10:30 AM AMBULATORY - MEDICINE [facility] Social History: Smoking Status (Most current) and Tobacco Use (All prior to encounter date) This section includes the most current, and the historical, smoking and tobacco- related health factors from the [place] facility where the Encounter took place. Current Smoking Status This section includes the most current smoking, or tobacco-related health factor, from the [place] facility where the Encounter took place. Date/Time Current Smoking Status Comment Davi ity Oct 18, 2023 11:00 AM [place]-TOB[place] NEVER USED [facility] Tobacco Use History This section includes a history of the smoking, or tobacco-related health factors, that were collected on or before the date of the Encounter. The data comes from the [place] facility where the Encounter took place. Date/Time Smoking Status/Tobacco Use Comment F acility Oct 13, 2022 09:00 AM VA-TOBACCO FORMER USER [facility] Oct 13, 2022 09:00 AM VA-TOBACCO QUIT 15 YRS OR MORE [facility] Oct 13, 2021 10:00 AM VA-TOBACCO NEVER USED [facility] Sep 22, 2020 09:30 AM VA-TOBACCO FORMER USER [facility] Sep 22, 2020 09:30 AM [place]-TO[place]ACCO QUIT 15 YRS OR MORE [facility] Encounter Notes: All associated encounter notes This section contains the clinical notes associated to the Encounter. Date/Time Encounter Note(s) Provider Source Jun 23, 2024 03:36 PM AUDIOLOGY WEIGH MACHINE OPERATOR NOTE: LOCAL TITLE: HEARING AIDS STL STANDARD TITLE: AUDIOLOGY WEIGH MACHINE OPERATOR NOTE DATE OF NOTE: JUN 23, 2024@15:36 ENTRY DATE: JUN 23, 2024@15:36:52 AUTHOR: NATASHA FROST COSIGNER: URGENCY: STATUS: COMPLETED SUBJECT: Audio HEARING AIDS ST Has ADDENDA HEARING AID DROP OFF dropped off/mailed the following [place] issued aid(s): AUDIOLOGY PURE [phone] 7NX CONNIE Left [id number] WS AUDIOLOGY PURE 312 7NX CONNIE Right [id number] PHONE: [phone] REPORTED PROBLEM: Right hearing aid quit working a couple times. Check left. REPAIR ACTIONS: General cleaning. Replaced fillers. Both aids working fine. Called pt to see if he wants them sent in. He will machine operator hop picker tomorrow. PLAN [place] was notified of repair actions and is in agreement. [ ] Device(s) sent in for repair; hearing aid will be mailed to following repair direct from [facility]; ETA approximately 2-3 weeks. [x ] will machine operator hop picker devices at bowling or skating front desk clerk [ ]Hearing device(s) mail to per [place] request. /veronica/ Barber [place] Staff Stone DresserIgnacia, Surgery Service Signed: 06/23/2024 15:38 06/24/2024 ADDENDUM STATUS: COMPLETED AIDS HAVE BEEN PICKED UP FROM LAYDOWN MACHINE OPERATOR BY PT. /veronica/ STEFANIE LEUNG [facility] MED[facility]YS[facility] PROFESSOR Signed: 06/24/2024 10:37 NATASHA FROST [facility]
--- OUTSIDE RECORDS SUMMARY | 2024-07-28 16:27 | XMS_ITS | Encounter Summary ---
Author Name [place] Organization [place] Address [address] [place] [address] Care Team Providers Care Retail Interior Designer Name Role Phone ALEXIS ALFONSO Primary Care [...] Patient's Relationship to Policy Harris [facility] MCR (WNR) MEDICARE ADVANTAGE MCR (WNR) Jul 16, 2023 [id number] CARRIL,TH OMAS PATIENT [employer]CO ([employer]) PRESCRIPT ION VNA PPO ACTIV E Feb 13, 2018 UVNAPPO 257A [id number] [phone] CARRIL, OMAS PATIENT [facility] VEOLI A Jul 16, 2018 [id number] [phone] CARRIL, OMAS PATIENT Selected Encounter This section includes the information on record at [place] for the Encounter. Date/Time Encounter Type Encounter Description Reason Provider Source May 23, 2024 01:52 PM Outpatient Encounter PRIMARY CARE/MEDICINE KEISHA JASON Encounter Template Text not used by [place] Plan of Treatment: Future Appointments (+ 6 [...] 20 appointments. The data comes from all [place] treatment facilities. Appointment Date/Time Appointment Type Appointme nt Facility Name November 13, 2024 10:30 AM AMBULATORY - MEDICINE [facility] Encounter Notes: All associated encounter notes This section contains the clinical notes associated to the Encounter. Date/Time Encounter Note(s) Provider Source May 23, 2024 01:52 PM PRIMARY CARE SECUR E MESSAGING: LOCAL TITLE: PRIMARY CARE SECURE MESSAGING STANDARD TITLE: PRIMARY CARE SECURE MESSAGING DATE OF NOTE: MAY 23, 2024@13:52 ENTRY DATE: MAY 23, 2024@12:52:33 AUTHOR: KEISHA JASON COSIGNER: URGENCY: STATUS: COMPLETED ------Original Message ------ Sent: 05/23/2024 12:38 PM ET From: MAGDALENO GARCIA To: JHONNY, 2_Heidi ALEXIS_Primary Care, TEENA Subject: General:phone appointment I was just wondering if we are still having our phone appointment today or would you like to reschedule it? It was scheduled for 10:30. Nov 1, 137/76 Nov 2, 146/87 Nov 3, 150/83 Nov 4, 128/76 Last day of my prednisone 5 day pack. Nov 5, 127/82 Nov 6 , 118/76 Nov 7, 121/68 Nov 8, 129/76 Next Sunday I will be getting my epidural spinal injection. Not sure if that will spike my BP up or not but i'm thinking it may. /veronica/ KEISHA JASON REGISTERED NURSE Signed: 05/23/2024 12:52 KEISHA JASON [facility]
--- OUTSIDE RECORDS SUMMARY | 2024-07-28 16:27 | XMS_ITS ---
Author Name [facility] [place] [facility] [place] [facility] [place] Address [address] [place] [address] Care Team Providers Care Graduate Nurse Name Role Phone ALFONSO ALEXIS Primary Care [...] Harris's Name Patient's Relationship to Policy Harris [facility] (WNR) MEDICARE ADVANTAGE [facility] (WNR) Jul 16, 2023 [id number] CARRIL,TH OMAS PATIENT [employer] ([employer]) PRESCRIPT ION VNA PPO ACTIV E Feb 13, 2018 UVNAPPO [id number] [phone] CARRIL, OMAS PATIENT [facility] VEOLI A Jul 16, 2018 [id number] [phone] CARRIL, OMAS PATIENT Selected Encounter This section includes the information on record at [place] for the Encounter. Date/Time Encounter Type Encounter Description Reason Provider Source May 23, 2024 10:30 AM HC PRO PHONE CALL 5-10 MIN TELEPHONE PRIMARY CARE ICD-10-CM I10 Essential (primary) hypertension CHRISTOPHER JASON IHWilfrido Encounter Template Text not used by [facility] Assessments - Encounter Diagnoses This section includes the primary and secondary diagnoses documented for the Encounter. Date/Time Primary/Secondary Diagnosis Diagnosis Name Provider Source May 23, 2024 10:30 AM PRIMARY Essential (primary) hypertension KEISHA JASON [facility] Plan of Treatment: Future Appointments (+ 6 months) and Future Tests (+/- 45 days) The Plan of Treatment section includes future care activities for the patient [facility] [place] [facility]. This section includes future appointments and future orders which are active, pending or scheduled. Future Appointments This section includes appointments that were scheduled to occur 6 months from the date of the Encounter, up to a maximum of 20 appointments. The data comes from all [place] treatment facilities. Appointment Date/Time Appointment Type Appointme nt Facility Name November 13, 2024 10:30 AM AMBULATORY - MEDICINE [facility] Social History: Smoking Status (Most current) and Tobacco Use (All prior to encounter date) This section includes the most current, and the historical, smoking and tobacco- related health factors from the [place] facility where the Encounter took place. Current Smoking Status This section includes the most current smoking, or tobacco-related health factor, from the [place] facility where the Encounter took place. Date/Time Current Smoking Status Comment [place]i it[place] Oct 18, 2023 11:00 AM [place] NEVER USED [facility] Tobacco Use History This section includes a history of the smoking, or tobacco-related health factors, that were collected on or before the date of the Encounter. The data comes from the [place] facility where the Encounter took place. Date/Time Smoking Status/Tobacco Use Comment F acility Oct 13, 2022 09:00 AM [place]-TOBACCO FORMER USER [facility] Oct 13, 2022 09:00 AM VA-TOBACCO QUIT 15 YRS OR MORE [facility] Oct 13, 2021 10:00 AM VA-TOBACCO NEVER USED [facility] Sep 22, 2020 09:30 AM VA-TOBACCO FORMER USER [facility] Sep 22, 2020 09:30 AM VA-TOBACCO QUIT 15 YRS OR MORE [facility] Encounter Notes: All associated encounter notes This section contains the clinical notes associated to the Encounter. Date/Time Encounter Note(s) Provider Source May 27, 2024 08:27 AM ADDENDUM: LOCAL TITLE: Addendum STANDARD TITLE: ADDENDUM DATE OF NOTE: MAY 27, 2024@08:27:06 ENTRY DATE: MAY 27, 2024@08:27:08 AUTHOR: ALFONSO ALEXIS COSIGNER: URGENCY: STATUS: COMPLETED If he was normotensive while taking the amlodipine 5mg, recommend continuing the medication /horacio ALEXIS MSN,[employer]ATE RELATIONS MANAGER-[employer]HNAZ NURSE PRACTITIONER Signed: 05/27/2024 08:27 Receipt Acknowledged By: 05/27/2024 15:07 /horacio JASON REGISTERED NURSE --- Original Document --- 05/23/24 V15 PACT TELEPHONE CONTACT NOTE STL: Patient/Other contacted: May 18, 150/83 Nov 4, 128/76 Last day of my prednisone 5 day pack. May 20, 127/82 Nov 6 , 118/76 Nov 7, 121/68 Nov 8, 129/76 Assessment: Pt currently taking HCTA 12.5/ losartan 100 daily. Pt has not started amliodipine 5mg daily. Plan: Pt agrees to start amliodipine 5mg daily, Continue with home medications, continue checking daily BP readings, Report consistant BP readings > 140/90. Patient understanding verified by teach back:Yes Total time spent on phone: 10 For notification only, information forwarded to [place] /horacio JASON REGISTERED NURSE Signed: 05/23/2024 13:30 Receipt Acknowledged By: 05/23/2024 13:39 /horacio CABRAL,CORPORATE RELATIONS MANAGER-MAHNAZ NURSE PRACTITIONER 05/23/2024 ADDENDUM STATUS: COMPLETED Patient is normotensive off the amlodipine Would recommend not taking the amlodipine given his blood pressure is controlled at this time off the Medrol Dosepak Please have him continue to monitor his blood pressure at home and send me readings in 2 weeks /horacio CABRAL,CORPORATE RELATIONS MANAGER-MAHNAZ NURSE PRACTITIONER Signed: 05/23/2024 13:40 Receipt Acknowledged By: 05/23/2024 13:46 /veronica/ KEISHA JASON REGISTERED NURSE 05/23/2024 ADDENDUM STATUS: COMPLETED Called and spoke with patient. Advised pt that pcp does not want him to start amliodipne 5mg since his BP readings are controlled. Per patient he has been taking x 1 month from outside [facility] and will start tomorrow when he is out of original RX. Sent to pcp to review and advise. Pt agrees to check BP x 2 weeks and send SM with readings. /horacio JASON REGISTERED NURSE Signed: 05/23/2024 13:48 Receipt Acknowledged By: 05/27/2024 08:27 /veronica/ ALFONSO ALEXIS MSN,CORPORATE RELATIONS MANAGER- NURSE PRACTITIONER ALFONSO ALEXIS [facility] May 23, 2024 01:46 PM ADDENDUM: LOCAL TITLE: Addendum STANDARD TITLE: ADDENDUM DATE OF NOTE: MAY 23, 2024@13:46:26 ENTRY DATE: MAY 23, 2024@13:46:27 AUTHOR: KEISHA JASON COSIGNER: URGENCY: STATUS: COMPLETED Called and spoke with patient. Advised pt that pcp does not want him to start amliodipne 5mg since his BP readings are controlled. Per patient he has been taking x 1 month from outside He [facility] and will start tomorrow when he is out of original RX. Sent to pcp to review and advise. Pt agrees to check BP x 2 weeks and send SM with readings. /horacio JASON REGISTERED NURSE Signed: 05/23/2024 13:48 Receipt Acknowledged By: 05/27/2024 08:27 /horacio ALEXIS MSN,CORPORATE RELATIONS MANAGER- NURSE PRACTITIONER --- Original Document --- 05/23/24 V15 PACT TELEPHONE CONTACT NOTE STL: Patient/Other contacted: Nov 3, 150/83 Nov 4, 128/76 Last day of my prednisone 5 day pack. May 20, 127/82 Nov 6 , 118/76 Nov 7, 121/68 Nov 8, 129/76 Assessment: Pt currently taking HCTA 12.5/ losartan 100 daily. Pt has not started amliodipine 5mg daily. Plan: Pt agrees to start amliodipine 5mg daily, Continue with home medications, continue checking daily BP readings, Report consistant BP readings > 140/90. Patient understanding verified by teach back:Yes Total time spent on phone: 10 For notification only, information forwarded to [place] /veronica/ KEISHA JASON REGISTERED NURSE Signed: 05/23/2024 13:30 Receipt Acknowledged By: 05/23/2024 13:39 /veronica/ ALFONSO ALEXIS MSN,[facility] NURSE PRACTITIONER 05/23/2024 ADDENDUM STATUS: COMPLETED Patient is normotensive off the amlodipine Would recommend not taking the amlodipine given his blood pressure is controlled at this time off the Medrol Dosepak Please have him continue to monitor his blood pressure at home and send me readings in 2 weeks /horacio ALEXIS MSN,[facility] NURSE PRACTITIONER Signed: 05/23/2024 13:40 Receipt Acknowledged By: 05/23/2024 13:46 /veronica/ KEISHA JASON REGISTERED NURSE 05/27/2024 ADDENDUM STATUS: COMPLETED If he was normotensive while taking the amlodipine 5mg, recommend continuing the medication /horacio ALEXIS MSN,[facility] NURSE PRACTITIONER Signed: 05/27/2024 08:27 Receipt Acknowledged By: * AWAITING SIGNATURE * KEISHA JASON DEBORAH A [facility] May 23, 2024 01:40 PM ADDENDUM: LOCAL TITLE: Addendum STANDARD TITLE: ADDENDUM DATE OF NOTE: MAY 23, 2024@13:40:02 ENTRY DATE: MAY 23, 2024@13:40:03 AUTHOR: ALFONSO ALEXIS EXP COSIGNER: URGENCY: STATUS: COMPLETED Patient is normotensive off the amlodipine Would recommend not taking the amlodipine given his blood pressure is controlled at this time off the Medrol Dosepak Please have him continue to monitor his blood pressure at home and send me readings in 2 weeks /es/ ALFONSO ALEXIS MSN,[facility] NURSE PRACTITIONER Signed: 05/23/2024 13:40 Receipt Acknowledged By: 05/23/2024 13:46 /horacio JASON REGISTERED NURSE --- Original Document --- 05/23/24 V15 PACT TELEPHONE CONTACT NOTE STL: Patient/Other contacted: May 18, May 19, Last day of my prednisone 5 day pack. May 20, May 21 , May 22, May 23, Assessment: Pt currently taking HCTA 12.5/ losartan 100 daily. Pt has not started amliodipine 5mg daily. Plan: Pt agrees to start amliodipine 5mg daily, Continue with home medications, continue checking daily BP readings, Report consistant BP readings > 140/90. Patient understanding verified by teach back:Yes Total time spent on phone: 10 For notification only, information forwarded to [place] /veronica/ KEISHA JASON REGISTERED NURSE Signed: 05/23/2024 13:30 Receipt Acknowledged By: 05/23/2024 13:39 /horacio ALEXIS MSN,[facility] NURSE PRACTITIONER ALFONSO ALEXIS [facility] May 23, 2024 01:23 PM NURSING NOTE: LOCAL TITLE: V15 PACT TELEPHONE CONTACT NOTE STL STANDARD TITLE: NURSING NOTE DATE OF NOTE: MAY 23, 2024@13:23 ENTRY DATE: MAY 23, 2024@13:23:55 AUTHOR: KEISHA JASON EXP COSIGNER: URGENCY: STATUS: COMPLETED V15 PACT TELEPHONE CONTACT NOTE STL Has ADDENDA Patient/Other contacted: May 18, May 4, Last day of my prednisone 5 day pack. May 20, May 21 , May 22, May 23, Assessment: Pt currently taking HCTA 12.5/ losartan 100 daily. Pt has not started amliodipine 5mg daily. Plan: Pt agrees to start amliodipine 5mg daily, Continue with home medications, continue checking daily BP readings, Report consistant BP readings > 140/90. Patient understanding verified by teach back:Yes Total time spent on phone: 10 For notification only, information forwarded to [place] /horacio JASON REGISTERED NURSE Signed: 05/23/2024 13:30 Receipt Acknowledged By: 05/23/2024 13:39 /veronica/ ALFONSO ALEXIS MSN,[facility] NURSE PRACTITIONER 05/23/2024 ADDENDUM STATUS: COMPLETED Patient is normotensive off the amlodipine Would recommend not taking the amlodipine given his blood pressure is controlled at this time off the Medrol Dosepak Please have him continue to monitor his blood pressure at home and send me readings in 2 weeks /horacio CABRAL,[facility] NURSE PRACTITIONER Signed: 05/23/2024 13:40 Receipt Acknowledged By: 05/23/2024 13:46 /veronica/ KEISHA JASON REGISTERED NURSE 05/23/2024 ADDENDUM STATUS: COMPLETED Called and spoke with patient. Advised pt that pcp does not want him to start amliodipne 5mg since his BP readings are controlled. Per patient he has been taking x 1 month from outside [facility] and will start tomorrow when he is out of original RX. Sent to pcp to review and advise. Pt agrees to check BP x 2 weeks and send SM with readings. /horacio JASON REGISTERED NURSE Signed: 05/23/2024 13:48 Receipt Acknowledged By: 05/27/2024 08:27 /horacio CABRAL,[facility] NURSE PRACTITIONER 05/27/2024 ADDENDUM STATUS: COMPLETED If he was normotensive while taking the amlodipine 5mg, recommend continuing the medication /horacio CABRAL,[facility] NURSE PRACTITIONER Signed: 05/27/2024 08:27 Receipt Acknowledged By: * AWAITING SIGNATURE * KEISHA JASON [facility]
== END 2024-07-22 09:00 ==
LOC: ASC 06:58
PROVIDERS: PCP Family Medicine; Visit Provider Anesthesiology Pain Medicine
PROC: (CPT 27096; principal; 2024-07-22 08:00)
DX: M46.1 Sacroiliitis, not elsewhere classified (principal); G89.29 Other chronic pain
CPT/HCPCS: 27096; 99199; G0260

== ENCOUNTER 2024-10-29 11:28 | Outpatient (CLI) | payer MEDICARE, SELFPAY ==
--- NOTE | ~2024-10-29 | XR_ITS ---
XR hand BI arthritis min 3V Ordering provider: Rianna Perdomo PAC History: . M79.641 - Pain in right hand . Comparison: None. FINDINGS: Both HANDs: --BONES: No acute fracture or dislocation. No osteopenia. --JOINT SPACES: Osteophytes seen in the left proximal interphalangeal joints of the left second and t hird fingers. Osteoarthritic changes of the bilateral first carpometacarpal joint is noted. Narrowing of the distal interphalangeal joint of the right second finger --SOFT TISSUES: Unremarkable. No soft tissue swelling or nodules. IMPRESSION: 1. No acute osseous abnormality bilateral hands. 2. Polyarticular osteoarthritic changes. Reviewed, dictated and finalized at location A.
--- OUTSIDE RECORDS SUMMARY | 2024-10-29 12:52 | XMS_ITS | Continuity of Care Document ---
Author Name [facility] Organization [facility] Care Team Providers Care Blending Line Attendant Name Role Phone [facility] Unavailable Unavailable Problems Combined list of problems from Department of Defense and [facility] Affairs facilities. It does not include entries that were removed or entered in error. 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 Bilateral simple and hemorrhagic renal cysts. No suspicious lesions [facility] Obstructive Sleep Apnea of Adult ([facility] [id number]) Active Condition [facility] Osteoarthritis of lumbar spine Active Condition [facility] Pancreatic cyst Active Condition November 29, 2022 Entered By: ALFONSO ALEXIS Comment: MRI 11/2022: pancreatic head and body cysts measuring up to 1 cm. No pancreatic ductal dilation. Follow up pancreatic MRI or CT in 2 years to confirm stability. DUE 11/2024 [facility] Prediabetes ([facility] [id number]) Active Condition [facility] Sensorineural hearing loss, bilateral Active Condition [facility] Steatosis of liver Active Condition [facility] Tinnitus Active Condition [facility] Vitamin D Deficiency ([facility] [id number]) Active Condition [facility] Diagnosis: ICD-10-CM S66.912A Strain of unsp musc/fasc/tend at wrs/hnd lv, left hand, init Active Diagnosis [facility] Diagnosis: ICD-10-CM H90.3 Sensorineural hearing loss, bilateral Active Diagnosis [facility] Diagnosis: ICD-10-CM I10 Essential (primary) hypertension Active Diagnosis [facility] Diagnosis: ICD-10-CM Q45.2 Congenital pancreatic cyst Active Diagnosis [facility] Diagnosis: ICD-10-CM Z00.00 Encntr for general adult medical exam w/o abnormal findings Active Diagnosis [facility] Diagnosis: ICD-10-CM H81.11 Benign paroxysmal vertigo, right ear Active Diagnosis [facility] Diagnosis: ICD-10-CM H61.23 Impacted cerumen, bilateral Active Diagnosis [facility] Medications Combined list of outpatient medications from Department of Defense and Veterans Affairs facilities.Medications provided include 1) outpatient medications from the last 15 months, and 2) patient-reported medications. Medication Details Route Status Patient Instructions Prescription Expires Prescription Number Last Dispense Date Ordering Provider Order Date Order Qty Source AMLODIPINE BESYLATE 5MG TAB TAKE ONE TABLET BY MOUTH ONCE A DAY ORAL 08/13/2024 [id number] YAZMIN ALEXIS K 2023 90 [facility] DICLOFENAC NA 1% GEL,TOP APPLY 2 GM TO AFFECTED AREA(S) FOUR TIMES A DAY NO MORE THAN 16 GM/DAY TO ANY LOWER EXTREMIT Y JOINT. NO MORE THAN 8 GM/DAY TO ANY UPPER EXTREMIT Y JOINT. MAX 32GM/DAY OVER ALL JOINTS.( MEASURE DOSE WITH RULER INSIDE BOX) TOPICA L ACTIVE 08/13/2025 [id number] YAZMIN ALEXISCA Priti 2024 300 [facility] DOXYCYCLINE HYCLATE 100MG TAB TAKE ONE TABLET BY MOUTH TWICE A DAY TAKE UNTIL FINISHED . AVOID SUN EXPOSURE WHILE TAKING. ORAL 10/22/2024 [id number] 5 YAZMIN ALEXIS SSICA K 2024 20 [facility] DOXYCYCLINE HYCLATE 100MG TAB TAKE ONE TABLET BY MOUTH TWICE A DAY FOR SKIN OR SOFT TISSUE INFECTIO N TAKE UNTIL FINISHED . AVOID SUN EXPOSURE WHILE TAKING. ORAL 09/11/2024 [id number] 5 YAZMIN ALEXIS 2024 20 [facility] HYDROCHLORO THIAZIDE 12.5MG/LOSA RTAN POTASSIUM 100MG TAB TAKE 1 TABLET BY MOUTH EVERY MORNING TO LOWER BLOOD PRESSURE ORAL DISCONT INUED 10/14/2023 [id number] YAZMIN ALEXIS 2022 90 [facility] HYDROCHLORO THIAZIDE 12.5MG/LOSA RTAN POTASSIUM 100MG TAB TAKE 1 TABLET BY MOUTH EVERY MORNING TO LOWER BLOOD PRESSURE ORAL 10/18/2024 [id number] 5 YAZMIN ALEXIS 2023 90 [facility] METOPROLOL SUCCINATE 200MG TAB,SA TAKE ONE TABLET BY MOUTH ONCE A DAY FOR HEART/BL OOD PRESSURE . SWALLOW WHOLE, DO NOT CRUSH OR CHEW (TABLETS MAY BE CUT IN HALF). ORAL DISCONT INUED 10/14/2023 [id number] 4 YAZMIN ALEXIS 2022 90 [facility] METOPROLOL SUCCINATE 200MG TAB,SA TAKE ONE TABLET BY MOUTH ONCE A DAY FOR HEART/BL OOD PRESSURE . SWALLOW WHOLE, DO NOT CRUSH OR CHEW (TABLETS MAY BE CUT IN HALF). ORAL 10/18/2024 [id number] 5 YAZMIN ALEXIS 2023 90 [facility] SILDENAFIL CITRATE 100MG TAB TAKE ONE TABLET BY MOUTH EVERY WEEK NEEDED FOR ERECTILE DYSFUNCT ION (TAKE 60 MINUTES PRIOR TO SEXUAL ACTIVITY ) - LIMIT 4 DOSES PER 30 DAYS ORAL DISCONT INUED 10/14/2023 [id number] YAZMIN ALEXIS 2022 12 [facility] SILDENAFIL CITRATE 100MG TAB TAKE ONE TABLET BY MOUTH EVERY WEEK NEEDED FOR ERECTILE DYSFUNCT ION (TAKE 60 MINUTES PRIOR TO SEXUAL ACTIVITY ) - LIMIT 6 DOSES PER 30 DAYS ORAL 10/18/2024 [id number] 5 YAZMIN ALEXIS SSICA K 2023 18 [facility] VAL[facility] 500MG TAB TAKE ONE TABLET BY MOUTH TWICE A DAY FOR COLD SORES ORAL DISCONT INUED 10/14/2023 [id number] 4 YAZMIN ALEXIS SSICA K 2022 20 [facility] VALACYCLOVI R HCL 500MG TAB TAKE ONE TABLET BY MOUTH TWICE A DAY FOR COLD SORES ORAL 10/18/2024 [id number] 5 YAZMIN ALEXIS SSICA K 2023 20 [facility] Allergies, Adverse Reactions, Alerts Combined list of allergies from Department of Defense and Veterans Affairs facilities. It does not include entries that were removed or entered in error. Substance Category Reaction Severity Reaction type Status Date Reported Comments Source AMPICILLIN Propensity to adverse reactions to drug (finding) Urticaria active 9 [facility] Immunizations Combined list of available immunizations from the Department of Defense and Veterans Affairs facilities. Immunization Series Date Given Administered By Site Reaction Lot Number CVX Code Drug Fondant Puff Maker Status Comments Source INFLUENZA, HIGH-DOSE, TRIVALENT, PF 2023 PIPPA HERNANDEZ RIGHT DELTO ID [id number] 135 complet ed [facility] INFLUENZA, HIGH-DOSE, QUADRIVALENT 2022 PIPPA HERNANDEZ LEFT DELTO ID [id number] A 197 complet ed [facility] INFLUENZA VACCINE, QUADRIVALENT, ADJUVANTED 2021 205 [facility] ed [facility] PNEUMOCOCC[facility] CONJUGATE PCV20, POLYSACCHARID E [id number] CONJUGATE, ADJUVANT, PF 2021 216 complet ed [facility] ZOSTER RECOMBINANT 2 2021 187 complet ed [facility] ZOSTER RECOMBINANT 1 2020 187 complet ed [facility] COVID-19 (PFIZER), MRNA, LNP-S, PF, 30 MCG/0.3 ML DOSE 3 2020 208 complet ed PFR; [id number]; 1 [facility] COVID-19 (PFIZER), MRNA, LNP-S, PF, 30 MCG/0.3 ML DOSE 2 2020 208 complet ed PFR; [id number]; 1 [facility] COVID-19 (PFIZER), MRNA, LNP-S, PF, 30 MCG/0.3 ML DOSE 1 2020 208 complet ed PFR; [id number]; 1 [facility] INFLUENZA, UNSPECIFIED FORMULATION 2018 88 complet ed [facility] Results Combined list of [...] Oct 18, 2023 11:22 AM Reporting Lab: [facility] [id number] Performing Lab: [facility] [id number] [place] [address] DIVISION MICRAL/CR EAT PROFILE (STL) ALBUMIN/CRE ATININE [MASS RATIO] IN URINE 5 mg/g 0 - 29 10/17 Specimen Type: URINE No comment entered. Ordering Provider: FREDDIE ALEXIS Report Released Date/Time: Oct 18, 2023 11:22 AM Reporting Lab: [facility] [id number] Performing Lab: [facility] #[address] DIVISION MICRAL/CR EAT PROFILE (STL) CREATININE [MASS/VOLUM E] IN URINE 143.3 mg/dL 63.0 - 166.0 10/17 Specimen Type: URINE No comment entered. Ordering Provider: FREDDIE ALEXIS Report Released Date/Time: Oct 18, 2023 11:22 AM Reporting Lab: [facility] #1 [place] [address] Performing Lab: [facility] #[address] DIVISION URINALYSI S (STL-PB) COLOR OF URINE Light- Yellow 10/17 Specimen Type: URINE No comment entered. Ordering Provider: FREDDIE ALEXIS Report Released Date/Time: Oct 18, 2023 11:22 AM Reporting Lab: [facility]1 [place] [address] Performing Lab: [facility] DIVISION URINALYSI S (STL-PB) BILIRUBIN.T OTAL [PRESENCE] IN URINE BY TEST STRIP Negati vemg/d L 10/17 Specimen Type: URINE No comment entered. Ordering Provider: FREDDIE ALEXIS Report Released Date/Time: Oct 18, 2023 11:22 AM Reporting Lab: [facility]1 [place] [address] Performing Lab: [facility] DIVISION URINALYSI S (STL-PB) PH OF URINE BY TEST STRIP 6.5 5.0 - 8.0 10/17 Specimen Type: URINE No comment entered. Ordering Provider: FREDDIE ALEXIS Report Released Date/Time: Oct 18, 2023 11:22 AM Reporting Lab: [facility]1 [place] [address] Performing Lab: [facility] #[address] DIVISION URINALYSI S (STL-PB) APPEARANCE OF URINE Clear 10/17 Specimen Type: URINE No comment entered. Ordering Provider: FREDDIE ALEXIS Report Released Date/Time: Oct 18, 2023 11:22 AM Reporting Lab: [facility]1 [place] [address] Performing Lab: [facility] DIVISION URINALYSI S (STL-PB) NITRITE [PRESENCE] IN URINE BY TEST STRIP Negati vemg/d L 10/17 Specimen Type: URINE No comment entered. Ordering Provider: FREDDIE ALEXIS Report Released Date/Time: Oct 18, 2023 11:22 AM Reporting Lab: [facility]1 [place] [address] Performing Lab: [facility] DIVISION URINALYSI S (STL-PB) GLUCOSE [MASS/VOLUM E] IN URINE BY TEST STRIP Normal mg/dL 10/17 Specimen Type: URINE No comment entered. Ordering Provider: FREDDIE ALEXIS Report Released Date/Time: Oct 18, 2023 11:22 AM Reporting Lab: [facility]1 [place] [address] Performing Lab: [facility] DIVISION URINALYSI S (STL-PB) PROTEIN [MASS/VOLUM E] IN URINE BY TEST STRIP Negati vemg/d L - 20 10/17 Specimen Type: URINE No comment entered. Ordering Provider: FREDDIE ALEXIS Report Released Date/Time: Oct 18, 2023 11:22 AM Reporting Lab: [facility]1 [place] [address] Performing Lab: [facility] #[address] DIVISION URINALYSI S (STL-PB) URN.UROBILI NOGEN Normal mg/dL 10/17 Specimen Type: URINE No comment entered. Ordering Provider: FREDDIE ALEXIS Report Released Date/Time: Oct 18, 2023 11:22 AM Reporting Lab: [facility]1 [place] [address] Performing Lab: [facility] #[address] DIVISION URINALYSI S (STL-PB) HEMOGLOBIN [MASS/VOLUM E] IN URINE BY TEST STRIP Negati vemg/d L 10/17 Specimen Type: URINE No comment entered. Ordering Provider: FREDDIE ALEXIS Report Released Date/Time: Oct 18, 2023 11:22 AM Reporting Lab: [facility]1 [place] [address] Performing Lab: [facility] #[address] DIVISION URINALYSI S (L-PB) KETONES [MASS/VOLUM E] IN URINE BY TEST STRIP Negati vemg/d L 10/17 Specimen Type: URINE No comment entered. Ordering Provider: FREDDIE ALEXIS Report Released Date/Time: Oct 18, 2023 11:22 AM Reporting Lab: [facility] #1 [place] [address] Performing Lab: [facility] #[address] DIVISION URINALYSI S (L-PB) URN.LEUK.ES T. Negati vemg/d L 10/17 Specimen Type: URINE No comment entered. Ordering Provider: FREDDIE ALEXIS Report Released Date/Time: Oct 18, 2023 11:22 AM Reporting Lab: [facility]1 [place] [address] Performing Lab: [facility] #[address] DIVISION URINALYSI S (STL-PB) SPECIFIC GRAVITY OF URINE 1.017 1.005 - 1.029 10/17 Specimen Type: URINE No comment entered. Ordering Provider: FREDDIE ALEXIS Report Released Date/Time: Oct 18, 2023 11:22 AM Reporting Lab: [facility]1 [place] [address] Performing Lab: [facility] #[address] B12 COBALAMIN (VITAMIN B12) [MASS/VOLUM E] [...] Oct 18, 2023 11:22 AM Reporting Lab: [facility]1 [place] [address] Performing Lab: [facility] #[address] DIVISION CBC LEUKOCYTES [#/VOLUME] IN BLOOD BY AUTOMATED COUNT 10.4 10*3/u L 3.6 - 11.2 10/17 Specimen Type: BLOOD No comment entered. Ordering Provider: FREDDIE ALEXIS Report Released Date/Time: Oct 18, 2023 11:22 AM Reporting Lab: [facility]1 [place] [address] Performing Lab: [facility] #[address] CBC ERYTHROCYTE S [#/VOLUME] IN BLOOD BY AUTOMATED COUNT 4.77 10*6/u L 4.10 - 5.70 10/17 Specimen Type: BLOOD No comment entered. Ordering Provider: FREDDIE ALEXIS Report Released Date/Time: Oct 18, 2023 11:22 AM Reporting Lab: [facility]1 [place] [address] Performing Lab: [facility] CBC HEMOGLOBIN [MASS/VOLUM E] IN BLOOD 15.0 g/dL 13.1 - 16.8 10/17 Specimen Type: BLOOD No comment entered. Ordering Provider: FREDDIE ALEXIS Report Released Date/Time: Oct 18, 2023 11:22 AM Reporting Lab: [facility] #1 [place] [address] Performing Lab: [facility] #[address] CBC HEMATOCRIT [VOLUME FRACTION] OF BLOOD 42.0 38.2 - 48.4 10/17 Specimen Type: BLOOD No comment entered. Ordering Provider: FREDDIE ALEXIS Report Released Date/Time: Oct 18, 2023 11:22 AM Reporting Lab: [facility] #1 [place] [address] Performing Lab: [facility] [address] CBC MCV [ENTITIC VOLUME] BY AUTOMATED COUNT 88.1 fL 80.0 - 100.0 10/17 Specimen Type: BLOOD No comment entered. Ordering Provider: FREDDIE ALEXIS Report Released Date/Time: Oct 18, 2023 11:22 AM Reporting Lab: [facility]1 [place] [address] Performing Lab: [facility] [address] CBC MCH [ENTITIC MASS] BY AUTOMATED COUNT 31.4 pg 27.0 - 34.0 10/17 Specimen Type: BLOOD No comment entered. Ordering Provider: FREDDIE ALEXIS Report Released Date/Time: Oct 18, 2023 11:22 AM Reporting Lab: [facility]1 [place] [address] Performing Lab: [facility] #[address] DIVISION CBC MCHC [MASS/VOLUM E] BY AUTOMATED COUNT 35.7 g/dL 33.0 - 36.0 10/17 Specimen Type: BLOOD No comment entered. Ordering Provider: FREDDIE ALEXIS Report Released Date/Time: Oct 18, 2023 11:22 AM Reporting Lab: [facility]1 [place] [address] Performing Lab: [facility] #[address] DIVISION CBC PLATELETS [#/VOLUME] IN BLOOD BY AUTOMATED COUNT 265 10*3/u L 150 - 400 10/17 Specimen Type: BLOOD No comment entered. Ordering Provider: FREDDIE ALEXIS Report Released Date/Time: Oct 18, 2023 11:22 AM Reporting Lab: [facility]1 [place] [address] Performing Lab: [facility] #[address] DIVISION CBC PLATELET MEAN VOLUME [ENTITIC VOLUME] IN BLOOD BY AUTOMATED COUNT 10.2 fL 7.5 - 11.2 10/17 Specimen Type: BLOOD No comment entered. Ordering Provider: FREDDIE ALEXIS Report Released Date/Time: Oct 18, 2023 11:22 AM Reporting Lab: [facility]1 [place] [address] Performing Lab: [facility] #[address] DIVISION CBC ERYTHROCYTE DISTRIBUTIO N WIDTH [RATIO] BY AUTOMATED COUNT 12.9 11.8 - 15.1 10/17 Specimen Type: BLOOD No comment entered. Ordering Provider: FREDDIE ALEXIS Report Released Date/Time: Oct 18, 2023 11:22 AM Reporting Lab: [facility]1 [place] [address] Performing Lab: [facility] #[address] DIVISION CBC LYMPHOCYTES /100 LEUKOCYTES IN BLOOD BY AUTOMATED COUNT 26 10/17 Specimen Type: BLOOD No comment entered. Ordering Provider: FREDDIE ALEXIS Report Released Date/Time: Oct 18, 2023 11:22 AM Reporting Lab: [facility]1 [place] [address] Performing Lab: [facility] #[address] DIVISION CBC MONOCYTES/1 00 LEUKOCYTES IN BLOOD BY AUTOMATED COUNT 8 10/17 Specimen Type: BLOOD No comment entered. Ordering Provider: FREDDIE ALEXIS Report Released Date/Time: Oct 18, 2023 11:22 AM Reporting Lab: [facility] [place] [address] Performing Lab: [facility] #[address] DIVISION CBC NEUTROPHILS /100 LEUKOCYTES IN BLOOD BY AUTOMATED COUNT 61 10/17 Specimen Type: BLOOD No comment entered. Ordering Provider: FREDDIE ALEXIS Report Released Date/Time: Oct 18, 2023 11:22 AM Reporting Lab: [facility]1 [place] [address] Performing Lab: [facility] #[address] DIVISION CBC EOSINOPHILS /100 LEUKOCYTES IN BLOOD BY AUTOMATED COUNT 3 10/17 Specimen Type: BLOOD No comment entered. Ordering Provider: FREDDIE ALEXIS Report Released Date/Time: Oct 18, 2023 11:22 AM Reporting Lab: [facility]1 [place] [address] Performing Lab: [facility] #[address] DIVISION CBC BASOPHILS/1 00 LEUKOCYTES IN BLOOD BY AUTOMATED COUNT 1 10/17 Specimen Type: BLOOD No comment entered. Ordering Provider: FREDDIE ALEXIS Report Released Date/Time: Oct 18, 2023 11:22 AM Reporting Lab: [facility] [place] [address] Performing Lab: [facility] #[address] DIVISION CBC LYMPHOCYTES [#/VOLUME] IN BLOOD BY AUTOMATED COUNT 2.67 10*3/u L 0.77 - 4.50 10/17 Specimen Type: BLOOD No comment entered. Ordering Provider: FREDDIE ALEXIS Report Released Date/Time: Oct 18, 2023 11:22 AM Reporting Lab: [facility]1 [place] [address] Performing Lab: [facility] #[address] DIVISION CBC MONOCYTES [#/VOLUME] IN BLOOD BY AUTOMATED COUNT 0.87 10*3/u L 0.19 - 0.80 10/17 H Specimen Type: BLOOD No comment entered. Ordering Provider: FREDDIE ALEXIS Report Released Date/Time: Oct 18, 2023 11:22 AM Reporting Lab: [facility] [place] [address] Performing Lab: [facility] #[address] DIVISION CBC NEUTROPHILS [#/VOLUME] IN BLOOD BY AUTOMATED COUNT 6.34 10*3/u L 2.10 - 8.00 10/17 Specimen Type: BLOOD No comment entered. Ordering Provider: FREDDIE ALEXIS Report Released Date/Time: Oct 18, 2023 11:22 AM Reporting Lab: [facility] [place] [address] Performing Lab: [facility] #[address] DIVISION CBC EOSINOPHILS [#/VOLUME] IN BLOOD BY AUTOMATED COUNT 0.32 10*3/u L 0.00 - 0.60 10/17 Specimen Type: BLOOD No comment entered. Ordering Provider: FREDDIE ALEXIS Report Released Date/Time: Oct 18, 2023 11:22 AM Reporting Lab: [facility] [place] [address] Performing Lab: [facility] #[address] DIVISION CBC BASOPHILS [#/VOLUME] IN BLOOD BY AUTOMATED COUNT 0.07 10*3/u L 0.00 - 0.20 10/17 Specimen Type: BLOOD No comment entered. Ordering Provider: FREDDIE ALEXIS Report Released Date/Time: Oct 18, 2023 11:22 AM Reporting Lab: [facility] [place] [address] Performing Lab: [facility] #[address] DIVISION COMPREHEN SIVE METABOLIC PANEL CREATININE [MASS/VOLUM E] IN SERUM OR PLASMA 1.33 mg/dL 0.70 - 1.30 10/17 H Specimen Type: PLASMA Comment: No hemolysis noted. Ordering Provider: FREDDIE ALEXIS Report Released Date/Time: Oct 18, 2023 11:22 AM Reporting Lab: [facility] [place] [address] Performing Lab: [facility] #[address] DIVISION COMPREHEN SIVE METABOLIC PANEL UREA NITROGEN [MASS/VOLUM E] IN SERUM OR PLASMA 20.2 mg/dL 9.0 - 25.0 10/17 Specimen Type: PLASMA Comment: No hemolysis noted. Ordering Provider: FREDDIE ALEXIS Report Released Date/Time: Oct 18, 2023 11:22 AM Reporting Lab: [facility] [place] [address] Performing Lab: [facility] #[address] DIVISION COMPREHEN SIVE METABOLIC PANEL GLUCOSE [MASS/VOLUM E] IN SERUM OR PLASMA 110 mg/dL 72 - 99 10/17 H Specimen Type: PLASMA Comment: No hemolysis noted. Ordering Provider: FREDDIE ALEXIS Report Released Date/Time: Oct 18, 2023 11:22 AM Reporting Lab: [facility] [place] [address] Performing Lab: [facility] #[address] DIVISION COMPREHEN SIVE METABOLIC PANEL SODIUM [MOLES/VOLU ME] IN SERUM OR PLASMA 138 meq/L 136 - 145 10/17 Specimen Type: PLASMA Comment: No hemolysis noted. Ordering Provider: FREDDIE ALEXIS Report Released Date/Time: Oct 18, 2023 11:22 AM Reporting Lab: [facility] [place] [address] Performing Lab: [facility] #[address] DIVISION COMPREHEN SIVE METABOLIC PANEL POTASSIUM [MOLES/VOLU ME] IN SERUM OR PLASMA 4.0 meq/L 3.5 - 5.0 10/17 Specimen Type: PLASMA Comment: No hemolysis noted. Ordering Provider: FREDDIE ALEXIS Report Released Date/Time: Oct 18, 2023 11:22 AM Reporting Lab: [facility] [place] [address] Performing Lab: [facility] [place] [id number] DIVISION COMPREHEN SIVE METABOLIC PANEL CHLORIDE [MOLES/VOLU ME] IN SERUM OR PLASMA 107 meq/L 98 - 107 10/17 Specimen Type: PLASMA Comment: No hemolysis noted. Ordering Provider: FREDDIE ALEXIS Report Released Date/Time: Oct 18, 2023 11:22 AM Reporting Lab: [facility] [place] [address] Performing Lab: [facility] #[address] DIVISION COMPREHEN SIVE METABOLIC PANEL CARBON DIOXIDE, TOTAL [MOLES/VOLU ME] IN SERUM OR PLASMA 22 meq/L 22 - 31 10/17 Specimen Type: PLASMA Comment: No hemolysis noted. Ordering Provider: FREDDIE ALEXIS Report Released Date/Time: Oct 18, 2023 11:22 AM Reporting Lab: [facility] [place] [id number] Performing Lab: [facility] DIVISION COMPREHEN SIVE METABOLIC PANEL CALCIUM [MASS/VOLUM E] IN SERUM OR PLASMA 9.1 mg/dL 8.4 - 10.4 10/17 Specimen Type: PLASMA Comment: No hemolysis noted. Ordering Provider: FREDDIE ALEXIS Report Released Date/Time: Oct 18, 2023 11:22 AM Reporting Lab: [facility] [place] [id number] Performing Lab: [facility] DIVISION [facility] DIVISION COMPREHEN SIVE METABOLIC PANEL PROTEIN [MASS/VOLUM E] IN SERUM OR PLASMA 7.2 g/dL 6.0 - 8.6 10/17 Specimen Type: PLASMA Comment: No hemolysis noted. Ordering Provider: FREDDIE ALEXIS Report Released Date/Time: Oct 18, 2023 11:22 AM Reporting Lab: [facility] DIV[facility] [place] [address] Performing Lab: [facility] DIV[facility] DIVISION COMPREHEN SIVE METABOLIC PANEL ALBUMIN [MASS/VOLUM E] IN SERUM OR PLASMA 4.2 g/dL 3.4 - 5.0 10/17 Specimen Type: PLASMA Comment: No hemolysis noted. Ordering Provider: FREDDIE ALEXIS Report Released Date/Time: Oct 18, 2023 11:22 AM Reporting Lab: [facility] [place] [address] Performing Lab: [facility] DIVISION [facility] DIVISION COMPREHEN SIVE METABOLIC PANEL BILIRUBIN.T OTAL [MASS/VOLUM E] IN SERUM OR PLASMA 0.9 mg/dL 0.2 - 1.2 10/17 Specimen Type: PLASMA Comment: No hemolysis noted. Ordering Provider: FREDDIE ALEXIS Report Released Date/Time: Oct 18, 2023 11:22 AM Reporting Lab: [facility] [place] [address] Performing Lab: [facility] DIVISION [facility] DIVISION COMPREHEN SIVE METABOLIC PANEL ALKALINE PHOSPHATASE [ENZYMATIC ACTIVITY/VO LUME] IN SERUM OR PLASMA 78 U/L 40 - 150 10/17 Specimen Type: PLASMA Comment: No hemolysis noted. Ordering Provider: FREDDIE ALEXIS Report Released Date/Time: Oct 18, 2023 11:22 AM Reporting Lab: [facility] [place] [address] Performing Lab: [facility] DIVISION [facility] DIVISION COMPREHEN SIVE METABOLIC PANEL ASPARTATE AMINOTRANSF ERASE [ENZYMATIC ACTIVITY/VO LUME] IN SERUM OR PLASMA 27 U/L 5 - 34 04/04 /2024 Specimen Type: PLASMA Comment: No hemolysis noted. Ordering Provider: FREDDIE ALEXIS Report Released Date/Time: Oct 18, 2023 11:22 AM Reporting Lab: [facility] [place] [address] Performing Lab: [facility] DIVISION [facility] DIVISION COMPREHEN SIVE METABOLIC PANEL ALANINE AMINOTRANSF ERASE [ENZYMATIC ACTIVITY/VO LUME] IN SERUM OR PLASMA 42 U/L 8 - 40 10/17 H Specimen Type: PLASMA Comment: No hemolysis noted. Ordering Provider: FREDDIE ALEXIS Report Released Date/Time: Oct 18, 2023 11:22 AM Reporting Lab: [facility] [place] [address] Performing Lab: [facility] DIVISION [facility] DIVISION COMPREHEN SIVE METABOLIC PANEL GLOMERULAR FILTRATION RATE/1.73 SQ M.PREDICTED [VOLUME RATE/AREA] IN SERUM, PLASMA OR BLOOD BY CREATININE- BASED FORMULA (CKD-EPI 2020) 58.59 60 10/17 Specimen Type: PLASMA Comment: No hemolysis noted. Ordering Provider: FREDDIE ALEXIS Report Released Date/Time: Oct 18, 2023 11:22 AM Reporting Lab: [facility] [place] [address] Performing Lab: [facility] DIVISION [facility] DIVISION FREE T4 (STL) THYROXINE (T4) FREE [MASS/VOLUM E] IN SERUM OR PLASMA 1.00 ng/mL 0.70 - 1.48 10/17 Specimen Type: PLASMA Comment: No hemolysis noted. Ordering Provider: FREDDIE ALEXIS Report Released Date/Time: Oct 18, 2023 11:22 AM Reporting Lab: [facility] [place] [address] Performing Lab: [facility] DIVISION [facility] [facility] [id number] [place] [address] DIVISION LIPID PANEL (STL) CHOLESTEROL [MASS/VOLUM E] IN SERUM OR PLASMA 172 mg/dL 0 - 200 10/17 Specimen Type: PLASMA Comment: No hemolysis noted. Ordering Provider: FREDDIE ALEXIS Report Released Date/Time: Oct 18, 2023 11:22 AM Reporting Lab: [facility] [place] [address] Performing Lab: [facility] DIVISION [facility] [place] [id number] LIPID PANEL (STL) TRIGLYCERID E [MASS/VOLUM E] IN SERUM OR PLASMA 110 mg/dL 0 - 150 10/17 Specimen Type: PLASMA Comment: No hemolysis noted. Ordering Provider: FREDDIE ALEXIS Report Released Date/Time: Oct 18, 2023 11:22 AM Reporting Lab: [facility] [place] [address] Performing Lab: [facility] #[address] LIPID PANEL (STL) CHOLESTEROL IN LDL [MASS/VOLUM E] IN SERUM OR PLASMA BY CALCULATION 115 mg/dL 10/17 Specimen Type: PLASMA Comment: No hemolysis noted. Ordering Provider: FREDDIE ALEXIS Report Released Date/Time: Oct 18, 2023 11:22 AM Reporting Lab: [facility] [place] [address] Performing Lab: [facility] #[address] LIPID PANEL (STL) CHOLESTEROL IN HDL [MASS/VOLUM E] IN SERUM OR PLASMA 35 mg/dL 40 10/17 L Specimen Type: PLASMA Comment: No hemolysis noted. Ordering Provider: FREDDIE ALEXIS Report Released Date/Time: Oct 18, 2023 11:22 AM Reporting Lab: [facility] [place] [address] Performing Lab: [facility] #[address] PROST. SPECIFIC AG.(PB-ST L) PROSTATE SPECIFIC [...] Oct 18, 2023 11:22 AM Reporting Lab: [facility] #[address] [place] [address] Performing Lab: [facility] #[address] TSH PANEL (STL) THYROTROPIN [UNITS/VOLU ME] IN SERUM OR PLASMA 1.627 u[IU]/ mL 0.470 - 5.000 10/17 Specimen Type: PLASMA Comment: No hemolysis noted. Ordering Provider: FREDDIE ALEXIS Report Released Date/Time: Oct 18, 2023 11:22 AM Reporting Lab: [facility] [place] [address] Performing Lab: [facility] #[address] VITAMIN D, 25-HYDROX Y 25-HYDROXYV ITAMIN [...] Oct 18, 2023 11:22 AM Reporting Lab: [facility] [place] [address] Performing Lab: [facility] DIVISION #1 [address] [facility] [id number] [facility] Vital Signs Combined list of inpatient and outpatient Vital Signs from Department of Defense and Veterans Affairs, ranging from 12 months to all on record, depending upon the facility. Vital Sign Value Date Comments Source SYSTOLIC BLOOD PRESSURE 112 08/12/2024 08:47:27 [facility] DIVISION DIASTOLIC BLOOD PRESSURE 73 08/12/2024 08:47:27 [facility] DIVISION PULSE OXIMETRY 98 08/12/2024 08:47:27 [facility] DIVISION WEIGHT 184 08/12/2024 08:47:27 [facility] DIVISION BMI 30 kg/m2 08/12/2024 08:47:27 [facility] DIVISION PAIN 0 08/12/2024 08:47:27 [facility] DIVISION TEMPERATURE 97.7 08/12/2024 08:47:27 [facility] DIVISION PULSE 68 08/12/2024 08:47:27 [facility] DIVISION RESPIRATION 16 08/12/2024 08:47:27 [facility] DIVISION SYSTOLIC BLOOD PRESSURE 147 05/15/2024 10:12:17 [facility] DIASTOLIC BLOOD PRESSURE 84 05/15/2024 10:12:17 [facility] DIVISION PULSE OXIMETRY 97 05/15/2024 10:12:17 [facility] DIVISION WEIGHT 191.1 05/15/2024 10:12:17 [facility] DIVISION BMI 31 kg/m2 05/15/2024 10:12:17 [facility] DIVISION PAIN 3 05/15/2024 10:12:17 [facility] DIVISION TEMPERATURE 98.2 05/15/2024 10:12:17 [facility] DIVISION PULSE 83 05/15/2024 10:12:17 [facility] DIVISION RESPIRATION 16 05/15/2024 10:12:17 [facility] Encounters Combined list of: 1) Encounters from Department of [facility] Affairs facilities going backup to the last 18 months, not all [facility] inpatient encounters are included; 2) Encounters from the Department of [facility] facilities going backup to 280 months. Location Location Details Encounter Type Encounter Number Reason For Visit Attending Provider ADM Date DC Date Status Disposition Source [facility] Outpatient Encounter [id number] 05/16 [facility] Outpatient Encounter [id number] 05/28 [facility] OFF/OP EST NOVEMBER X REQ PHY/QHP [id number] Diagnos is: ICD-10- CM H61.23 misael Scott ROB IN J 06/20 [facility] Outpatient Encounter [id number] 08/16 [facility] OFFICE O/P EST LOW 20 MIN [id number] Diagnos is: ICD-10- CM H81.11 Benign paroxys mal vertigo , right ear SEAN ALEXIS 08/21 [facility] HEARING AID FITTING/CH ECKING [id number] Diagnos is: ICD-10- CM H90.3 Sensori neural hearing loss, bilater al VEST,NATASHA A 08/24 [facility] TYMPANOMET RY & REFLEX THRESH [id number] Diagnos is: ICD-10- CM H90.3 Sensori neural hearing loss, bilater al VEST,NATASHA A 08/24 [facility] Outpatient Encounter [id number] LALITHA JASON A 10/11 [facility] DIVISION OFFICE O/P EST MOD 30 MIN [id number] Diagnos is: ICD-10- CM Z00.00 Encntr for general adult medical exam w/o abnorma l finding s SEAN ALEXIS 10/17 [facility] Outpatient Encounter [id number] 12/25 [facility] Outpatient Encounter [id number] KANU HERNANDEZ 05/07 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 SEAN ALEXIS 05/15 [facility] HC PRO PHONE CALL 5-10 MIN [id number] Diagnos is: ICD-10- CM I10 Essenti al (primar y) hyperte nsion LALITHA JASON A 05/23 [facility] Outpatient Encounter [id number] LALITHA JASON A 05/23 [facility] HEARING AID CHECK BOTH EARS [id number] Diagnos is: ICD-10- CM H90.3 Sensori neural hearing loss, bilater al NATASHA FROST A 06/23 [facility] DIVISIO N [facility] DIVISION OFFICE O/P EST LOW 20 MIN [id number] Diagnos is: ICD-10- CM S66.912 A Strain of unsp musc/fa sc/tend at wrs/hnd lv, left hand, init SEAN ALEXISA K 08/12 [facility] DIVIS N [facility] Outpatient Encounter [id number] 08/12 [facility] DIVIS N [facility] Outpatient Encounter [id number] 08/28 [facility] DIVIS N [facility] Outpatient Encounter [id number] LALITHA JASON A 09/22 [facility] Social History Combined list of available smoking, tobacco, and other social history from Department of Defense and Veterans Affairs facilities. Social History Type Response Date Comment Sour e Tobacco smoking status NHIS VA-TOBACCO NEVER USED 10/18/2023 [facility] History of tobacco use MT-TOBACCO FORMER USER 10/13/2022 [facility] History of tobacco use VA-TOBACCO NEVER USED 10/13/2021 [facility] History of tobacco use MT-TOBACCO QUIT 1 5 YRS OR MORE 09/22/2020 [facility] Plan of Care List of future care activities from Department of [facility] Affairs facilities. Additional future care activities may be listed in the Assessment and Plan section. Date/Time Care Activity Care Activity Detail Facili ty 11/13/2024 AMBULATORY - MEDICINE AMBULATORY - MEDICI NE [facility]
== END 2024-10-29 11:29 | disposition home or self-care (01) ==
PROVIDERS: PCP Family Medicine; Visit Provider Physician Assistant Medical
DX: M79.641 Pain in right hand (principal); M79.642 Pain in left hand
CPT/HCPCS: 73130

== ENCOUNTER 2024-12-22 07:51 | Outpatient (CLI) | payer MEDICARE, OTHER, SELFPAY ==
--- NOTE | ~2024-12-22 | MR_ITS ---
EXAMINATION: MR abdomen wo/w con DATE: 12/22/2024 09:26 INDICATION: Pancreatic cyst TECHNIQUE: Magnetic resonance imaging (MRI) of the abdomen was performed without and with 17 mL Multi deandra intravenous contrast. Sequences included coronal T2-weighted SS-FSE, coronal and axial FS 2D-F IESTA, axial STIR FSE, axial T2-weighted SS-FSE, axial T2-weighted FS SS-FSE, axial diffusion-weighte d SE, axial dual-echo T1-weighted FSPGR, and axial and coronal T1-weighted LAVA. Postcontrast axial T 1-weighted LAVA images were obtained in a time course. Postcontrast coronal T1-weighted LAVA images w ere obtained. COMPARISON: None. FINDINGS: Heart size is normal. No pericardial or pleural effusion. Mild lung disease at the post lateral right lung base which could represent atelectasis or pneumonia. There are some dependently layering sludge in the otherwise normal gallbladder. Liver, spleen and bilateral adrenal glands are normal. There ar e multiple T2 hyperintense nonenhancing cysts throughout both kidneys. Largest in both kidneys measur ing up to 7.5 cm cyst. There is a 7 mm T2 hyperintense nonenhancing simple appearing cystic lesion at the body the pancreas without apparent direct contract the normal caliber main pancreatic duct. Ther e is a second small cystic-appearing lesion at the head of the pancreas which is contiguous with the main pancreatic duct and appears to represent fusiform dilation of the accessory pancreatic duct whic h measures 11 x 6 mm. No septations or abnormally enhancing soft tissue component associated with eit her cystic lesion. Visualized portions of bowels including the appendix are normal. No pathologically enlarged abdominal or upper pelvic lymphadenopathy. Small fat-containing umbilical hernia. Visualize d bones are unremarkable with normal marrow signal throughout. IMPRESSION: 1. Simple appearing 7 mm cystic pancreatic lesion with additional possible 11 x 6 mm cystic lesion at the head of the pancreas versus fusiform dilation of the accessory pancreatic duct. Recommend two-ye ar follow-up pre and postcontrast MRI. 2. Numerous bilateral renal cysts consistent with possible polycystic kidney disease. 3. Mild lung disease at the posterolateral right lung base most likely atelectasis although different ial includes pneumonia. Reviewed, dictated and finalized at location A. IMPRESSION: 1. Simple appearing 7 mm cystic pancreatic lesion with additional possible 11 x 6 mm cystic lesion at the head of the pancreas versus fusiform dilation of the accessory pancreatic duct. Recommend two-year follow-up pre and postcontrast M RI. 2. Numerous bilateral renal cysts consistent with possible polycystic kidney di sease. 3. Mild lung disease at the posterolateral right lung base most likely atelecta sis although differential includes pneumonia.
--- OUTSIDE RECORDS SUMMARY | 2024-12-22 08:00 | XMS_ITS | Encounter Summary ---
Author Name [facility] of [facility] ([place]) Organization Department of [facility] ([place]) Address [address] [place] [address] Care Team Providers Care Enrolled Nurse Name Role Phone ALFONSO ALEXIS Primary [...] Harris's Name Patient's Relationship to Policy Harris [facility] (WNR) MEDICARE ADVANTAGE [facility] (WNR) Jul 16, 2023 [id number] CARRIL,TH OM[place] PATIENT [employer] ([employer]) PRESCRIPT ION VNA PPO ACTIV E Feb 13, 2018 UVNAPPO [id number] [phone] CARRIL, OMAS PATIENT [facility] Jul 16, 2018 [id number] [phone] CARRIL, OM[place] PATIENT Selected Encounter This section includes the information on record at [place] for the Encounter. Date/Time Encounter Type Encounter Description Reason Provider Source November 13, 2024 10:30 AM OFFICE O/P EST MOD 30 MIN PRIMARY CARE/MEDICINE ICD-10-CM Z00.00 Encntr for general adult medical exam w/o abnormal findings ALFONSO ALEXSI IHE Encounter Template Text not used by [place] Assessments - Encounter Diagnoses This section includes the primary and secondary diagnoses documented for the Encounter. Date/Time Primary/Secondary Diagnosis Diagnosis Name Provider Source November 13, 2024 10:52 AM PRIMARY Encntr for general adult medical exam w/o abnormal findings ALFONSO ALEXIS [facility] November 13, 2024 10:52 AM SECONDARY Chronic kidney disease, stage 3a ALFONSO ALEXIS [facility] November 13, 2024 10:52 AM SECONDARY Congenital pancreatic cyst ALFONSO ALEXIS [facility] November 13, 2024 10:52 AM SECONDARY Cyst of kidney, acquired ALFONSO ALEXIS [facility] November 13, 2024 10:52 AM SECONDARY Essential (primary) hypertension ALFONSO ALEXIS [facility] November 13, 2024 10:52 AM SECONDARY Fatty (change of) liver, not elsewhere classified ALFONSO ALEXIS [facility] November 13, 2024 10:52 AM SECONDARY Herpesviral infection, unspecified ALFONSO ALEXIS [facility] November 13, 2024 10:52 AM SECONDARY Male erectile dysfunction, unspecified YAZMIN ALEXISSSPAKO Marcos [facility] November 13, 2024 10:52 AM SECONDARY Obstructive sleep apnea (adult) (pediatric) ALFONSO ALEXIS [facility] November 13, 2024 10:52 AM SECONDARY Prediabetes ALFONSO ALEXIS [facility] November 13, 2024 10:52 AM SECONDARY Sensorineural hearing loss, bilateral ALFONSO ALEXIS [facility] November 13, 2024 10:52 AM SECONDARY Spondylosis w/o myelopathy or radiculopathy, lumbar region ALFONSO ALEXIS [facility] November 13, 2024 10:52 AM SECONDARY Tinnitus, unspecified ear ALFONSO ALEIXS [facility] November 13, 2024 10:52 AM SECONDARY Vitamin D deficiency, unspecified ALFONSO ALEXIS [facility] Plan of Treatment: Future Appointments (+ 6 months) and Future Tests (+/- 45 days) The Plan of Treatment section includes future care activities for the patient from [facility] [place] [facility] This section includes future appointments and future orders which are active, pending or scheduled. Future Appointments This section includes appointments that were scheduled to occur 6 months from the date of the Encounter, up to a maximum of 20 appointments. The data comes from all [facility]. Appointment Date/Time Appointment Type Appointme nt Facility Name Dec 22, 2024 08:00 AM AMBULATORY - NONE [facility] Feb 09, 2025 08:30 AM AMBULATORY - MEDICINE [facility] Active, Pending, and Scheduled Orders This section includes a listing of several types of active, pending, and scheduled orders, including clinic medications orders, diagnostic test orders, procedure orders and consult orders; where the start date of the order is 45 days before the date of the Encounter or 45 days after the date of theEncounter. The data comes from all [facility]. Test Date/Time Test Type Test Details Facility Name November 24, 2024 10:13 AM Consult Order COMMUNITY CARE-IMAGING MAG[facility]-AUTO STL Cons Paratransit Operator's Choice [facility] November 27, 2024 12:00 AM Laboratory - Chemi stry Order OCCULT BLOOD FIT X1 SCREEN STOOL FECES SP [facility] Lab Results: +/- 30 days of the encounter This section includes the Chemistry and Hematology Lab Results on record with [place] for the patient. Radiology Reports and Pathology Reports are provided separately, in subsequent sections. Lab Results This section contains the Chemistry/Hematology Results that were resulted 30 days before or 30 daysafter the date of the Encounter. Date/Time Source Result Type Result - Unit Interpretation Reference Range Specimen Type Comment 2024 09:51 AM [facility] COMPREHENSIVE METABOLIC PANEL PLASMA Specimen Type: PLASMA Comment: No hemolysis noted. Ordering Provider: ALFONSO ALEXIS Report Released Date/Time: November 14, 2024 08:13 AM Reporting Lab: [facility] [id number] Performing Lab: [facility] [phone] CREATININE 1.36 mg/dL H 0.70-1.30 UREA NITROGEN 28.2 mg/dL H 9.0-25.0 GLUCOSE 103 mg/dL H 72-99 SODIUM 139 meq/L 136-145 POTASSIUM 4.1 meq/L 3.5-5.0 CHLORIDE 109 meq/L H 98-107 CARBON DIOXIDE 21 meq/L L 22-31 CALCIUM 9.3 mg/dL 8.4-10.4 PROTEIN 6.9 g/dL 6.0-8.6 ALBUMIN 4.2 g/dL 3.4-5.0 TOTAL BILIRUBIN 0.6 mg/dL 0.2-1.2 ALKALINE PHOSPHATASE 81 U/L 40-150 AST/SGOT 23 U/L 5-34 ALT/SGPT 24 U/L 8-40 EGFR (CKD-EPI 2020) 56.33 >60 2024 09:51 AM [facility] CBC BLOOD Specimen Type: BLOOD No comment entered. Ordering Provider: ALFONSO ALEXIS Report Released Date/Time: November 14, 2024 08:13 AM Reporting Lab: [facility] [phone] Performing Lab: [facility] [phone] WBC 10.3 10*3/uL 3.6-11.2 RBC 4.05 10*6/uL L 4.10-5.70 HGB 12.7 g/dL L 13.1-16.8 HCT 37.2 L 38.2-48.4 MCV 91.9 fL 80.0-100.0 MCH 31.4 pg 27.0-34.0 MCHC 34.1 g/dL 33.0-36.0 PLT 248 10*3/uL 150-400 MPV 10.3 fL 7.5-11.2 RDW 13.2 11.8-15.1 LYMPHOCYTES, AUTO % 29 MONOCYTES, AUTO % 10 NEUTROPHILS, AUTO % 57 EOSINOPHILS, AUTO % 3 BASOPHILS, AUTO % 1 LYMPHOCYTES, ABSOLUTE 3.01 10*3/uL 0.77- 4.50 MONOCYTES, ABSOLUTE 0.99 10*3/uL H 0.19-0. 80 NEUTROPHILS, ABSOLUTE 5.82 10*3/uL 2.10- 8.00 EOSINOPHILS, ABSOLUTE 0.30 10*3/uL 0.00- 0.60 BASOPHILS, ABSOLUTE 0.09 10*3/uL 0.00-0. 20 November 13, 2024 11:03 AM [facility] URINALYSIS W/ CX REFLEX (STL-PB) URINE Specim en Type: URINE No comment entered. Ordering Provider: ALFONSO ALEXIS Report Released Date/Time: November 13, 2024 10:49 AM Reporting Lab: [facility] [address] [place] [address] Performing Lab: [facility] [place] [address] URINE COLOR Light-Yellow Yellow U.BILIRUBIN Negative mg/dL Negative U.PH 6.0 5.0-8.0 APPEARANCE Clear Clear U.NITRITE Negative mg/dL Negative URN.GLUCOSE Normal mg/dL Negative URN.PROTEIN Negative mg/dL URN.UROBILINOGEN Normal mg/dL Normal URN.BLOOD Negative mg/dL Negative-Trace URN.KETONES Negative mg/dL Negative-Trac e URN.LEUK.EST. Negative mg/dL Negative-Tr jen URN.SPECIFIC GRAVITY 1.022 November 13, 2024 11:03 AM [facility] MICRAL/CREAT PROFILE (STL) URINE Specimen Typ e: URINE No comment entered. Ordering Provider: ALFONSO ALEXIS Report Released Date/Time: November 13, 2024 10:49 AM Reporting Lab: [facility] [place] [address] Performing Lab: [facility] [place] [address] URINE ALBUMIN (PB-STL) 6 mg/L No range refer to micral/creat ratio uACR (STL) 4 mg/g 0-29 CREATININE URINE/OTHERS 153.8 mg/dL 63.0 -166.0 November 13, 2024 10:57 AM [facility] LIPID PANEL (STL) PLASMA Specimen Type: PLASM A Comment: No hemolysis noted. Ordering Provider: ALFONSO ALEXIS Report Released Date/Time: November 13, 2024 10:49 AM Reporting Lab: [facility] [place] [id number] Performing Lab: [facility] [phone] CHOLESTEROL 210 mg/dL H 0-200 TRIGLYCERIDE 131 mg/dL 0-150 CALCULATED LDL 141 mg/dL See Interp HDL(New) 43 mg/dL > 40 November 13, 2024 10:57 AM [facility] COMPREHENSIVE METABOLIC PANEL PLASMA Specimen Type: PLASMA Comment: No hemolysis noted. Ordering Provider: ALFONSO ALEXIS Report Released Date/Time: November 13, 2024 10:49 AM Reporting Lab: [facility] [phone] Performing Lab: [facility] [phone] CREATININE 1.62 mg/dL H 0.70-1.30 UREA NITROGEN 33.7 mg/dL H 9.0-25.0 GLUCOSE 100 mg/dL H 72-99 SODIUM 142 meq/L 136-145 POTASSIUM 5.3 meq/L H 3.5-5.0 CHLORIDE 111 meq/L H 98-107 CARBON DIOXIDE 22 meq/L 22-31 CALCIUM 9.6 mg/dL 8.4-10.4 PROTEIN 7.3 g/dL 6.0-8.6 ALBUMIN 4.5 g/dL 3.4-5.0 TOTAL BILIRUBIN 0.6 mg/dL 0.2-1.2 ALKALINE PHOSPHATASE 84 U/L 40-150 AST/SGOT 40 U/L H 5-34 ALT/SGPT 63 U/L H 8-40 EGFR (CKD-EPI 2020) 45.95 >60 November 13, 2024 10:57 AM [facility] IRON/TIBC PROFILE SERUM Specimen Type: SERUM No comment entered. Ordering Provider: ALFONSO ALEXIS Report Released Date/Time: November 13, 2024 10:49 AM Reporting Lab: [facility] [address] [facility] [address] Performing Lab: [place] [id number] [facility] [address] TIBC 340 ug/dL 250-450 TRANSFERRIN 272 mg/dL 163-344 IRON SATURATION 24 20-50 IRON 81 ug/dL 65-175 November 13, 2024 10:57 AM [facility] HGA1C BLOOD Specimen Type: BLOOD No comment entered. Ordering Provider: ALFONSO ALEXIS Report Released Date/Time: November 13, 2024 10:49 AM Reporting Lab: [facility] [phone] Performing Lab: [facility] [place] [address] HGA1C 5.4 4.0-6.0 November 13, 2024 10:57 AM [facility] B12 SERUM Specimen Type: SERUM Comment: The listed sex of this patient may not be a typical indication for this test. Therefore, reference ranges or interpretive criteria listed may not be valid. Clinical correlation suggested. Ordering Provider: ALFONSO ALEXIS Report Released Date/Time: November 13, 2024 10:49 AM Reporting Lab: [facility] [place] [address] Performing Lab: [facility] [place] [address] B12 523 pg/mL 213-816 November 13, 2024 10:57 AM [facility] TSH W/ REFLEX FT4 (STL) PLASMA Specimen Type: PLASMA No comment entered. Ordering Provider: ALFONSO ALEXIS Report Released Date/Time: November 13, 2024 10:49 AM Reporting Lab: [facility] [place] [phone] Performing Lab: [facility] [place] [address] TSH 2.361 u[IU]/mL 0.470-5.000 November 13, 2024 10:57 AM [facility] PROST. SPECIFIC AG.(PB-STL) SERUM Specimen Ty pe: SERUM Comment: The listed sex of this patient may not be a typical indication for this test. Therefore, reference ranges or interpretive criteria listed may not be valid. Clinical correlation suggested. Ordering Provider: ALFONSO ALEXIS Report Released Date/Time: November 13, 2024 10:49 AM Reporting Lab: [facility] [place] [address] Performing Lab: [facility] [place] [address] PROST. SPECIFIC AG.(PB-STL) 2.942 ng/mL 0.000-4.000 November 13, 2024 10:57 AM [facility] CBC BLOOD Specimen Type: BLOOD No comment entered. Ordering Provider: ALFONSO ALEXIS Report Released Date/Time: November 13, 2024 10:49 AM Reporting Lab: [facility] [place] [address] Performing Lab: [facility] [place] [address] WBC 12.5 10*3/uL H 3.6-11.2 RBC 4.07 10*6/uL L 4.10-5.70 HGB 12.8 g/dL L 13.1-16.8 HCT 39.0 38.2-48.4 MCV 95.8 fL 80.0-100.0 MCH 31.4 pg 27.0-34.0 MCHC 32.8 g/dL L 33.0-36.0 PLT 273 10*3/uL 150-400 MPV 10.5 fL 7.5-11.2 RDW 13.2 11.8-15.1 IMMATURE PLT FRACTION 3.6 1.0-7.0 NRBC% 0 NEUTROPHILS 42 44-80 BAND NEUTROPHILS 1 0-7 MONOCYTES 3 4-8 EOSINOPHILS 2 0-8 BASOPHILS 1 0-3 METAMYELOCYTES 1 MYELOCYTES 1 PLT. (SMEAR EST.) ADEQUATE ADEQUATE ANISOCYTOSIS 1+ POIKILOCYTOSIS 1+ POLYCHROMASIA 1+ LYMPHOCYTES 41 20-40 ATYPICAL LYMPHOCYTES 8 0-5 IMMATURE GRANS, AUTO ABS 0.38 10*3/uL H 0. 00-0.05 BASO#-MDIFF 0.13 10*3/uL 0.00-0.20 EO#-MDIFF 0.25 10*3/uL 0.00-0.60 MONO#-MDIFF 0.38 10*3/uL 0.19-0.80 LYMPH#-MDIFF 6.13 10*3/uL H 0.77-4.50 NEUT#-MDIFF 5.25 10*3/uL 2.10-8.00 November 13, 2024 10:57 AM [facility] VITAMIN D, 25-HYDROXY SERUM Specimen Type: SE RUM Comment: The listed sex of this patient may not be a typical indication for this test. Therefore, reference ranges or interpretive criteria listed may not be valid. Clinical correlation suggested. Ordering Provider: ALFONSO ALEXIS Report Released Date/Time: November 13, 2024 10:49 AM Reporting Lab: [facility] [phone] Performing Lab: [facility] [address] VITAMIN D, 25-HYDROXY 33.4 ng/mL 30-96 Vital Signs: All taken on the encounter date This section contains inpatient and outpatient Vital Signs collected on the date of the Encounter. Date/Time Temperature Pulse Blood Pressure Respiratory Rate SP02 Pain Height Weight Body Mass Index Source November 13, 2024 10:46 AM 138/70 [facility] N November 13, 2024 10:23 AM 142/72 [facility] November 13, 2024 10:18 AM 98 61 158/84 16 99 0 188.8 31 [facility] Social History: Smoking Status (Most current) and Tobacco Use (All prior to encounter date) This section includes the most current, and the historical, smoking and tobacco- related health factors from the [place] facility where the Encounter took place. Current Smoking Status This section includes the most current smoking, or tobacco-related health factor, from the [place] facility where the Encounter took place. Date/Time Current Smoking Status Comment Davi ity November 13, 2024 10:30 AM [place]-TOBACCO NEVER U SED CIGARETTES [facility] Tobacco Use History This section includes a history of the smoking, or tobacco-related health factors, that were collected on or before the date of the Encounter. The data comes from the [place] facility where the Encounter took place. Date/Time Smoking Status/Tobacco Use Comment F acility November 13, 2024 10:30 AM [place]-TOBACCO NEVER U SED OTHER TYPE [facility] Oct 18, 2023 11:00 AM VA-TOBACCO NEVER USED [facility] Oct 13, 2022 09:00 AM VA-TOBACCO FORMER USER [facility] Oct 13, 2022 09:00 AM VA-TOBACCO QUIT 15 YRS OR MORE [facility] Oct 13, 2021 10:00 AM VA-TOBACCO NEVER USED [facility] Sep 22, 2020 09:30 AM VA-TOBACCO FORMER USER [facility] Sep 22, 2020 09:30 AM VA-TOBACCO QUIT 15 YRS OR MORE [facility] Encounter Notes: All associated encounter notes This section contains the clinical notes associated to the Encounter. Date/Time Encounter Note(s) Provider Source November 27, 2024 09:16 AM ADDENDUM: LOCAL TITLE: Addendum STANDARD TITLE: ADDENDUM DATE OF NOTE: NOVEMBER 27, 2024@09:16:26 ENTRY DATE: NOVEMBER 27, 2024@09:16:27 AUTHOR: ALFONSO ALEXIS EXP COSIGNER: URGENCY: STATUS: COMPLETED CAM [place]--> can you please mail a FIT card to the [facility]? Thank you /veronica/ ALFONSO ALEXIS MSN,SQL PROGRAMMER ANALYST- NURSE PRACTITIONER Signed: 11/27/2024 09:16 Receipt Acknowledged By: 12/03/2024 15:56 /veronica/ ROBER EDMONDS AMSA --- Original Document --- 11/13/24 PRIMARY CARE PROVIDER ESTABLISHED VISIT STL: REASON FOR VISIT/CHIEF COMPLAINT: routine HPI: This is a 68 year old presenting today for management of chronic disease Walks 2 miles every morning Helps his 93 year old mom Gets folliculitis every few months to his scalp, treats with Doxy for 10 days Outside Providers: PCP: Dr. Samuel Sleep Apnea: The patient IS using their [...] HCTZ 12.5mg/losartan 100mg, metoprolol 200mg, amlodipine 5mg -Renal function: CREATININE 1.33 H mg/dL 10/18/2023 [...] -Valacyclovir 500mg BID PRN Vitamin D Def: -45.3 (10/2023); 28 (09/2021) [...] injections/ablation -Had injection in right piriformis muscle -Had JOVITA Had MRI lumbar spine 03/06/[address] Moustapha Jimenez Mild lumbar spondylosis, worsened from 04/14/2013 Moderate to severe facet joint osteoarthritis Left Thumb OA: -x-ray 07/2024: Severe osteoarthritis first carpometacarpal joint -diclofenac gel -Received injections from outside provider, Dr. Lawson at [facility] What is your goal for today: routine visit Goes to [place] SOCIAL HISTORY: NICOTINE: None ALCOHOL: None ILLICIT DRUGS: None SOURCE(S) OF HISTORY: Patient PAST MEDICAL HISTORY: 1) Erectile Dysfunction ([facility] [id number]) 2) HTN - Hypertension ([facility] [id number]) 3) Herpes simplex type 1 infection 4) Obstructive Sleep Apnea of Adult ([facility] [id number]) 5) Vitamin D Deficiency ([facility] [id number]) 6) Prediabetes ([facility] [id number]) 7) Steatosis of liver 8) Multiple renal cysts comment: -CT 11/2021: Numerous bilateral simple cysts comment: MRI 11/2022: . Bilateral simple and hemorrhagic renal cysts. No albert 9) Tinnitus 10) Sensorineural hearing loss, bilateral 11) Chronic kidney disease stage 3A 12) Pancreatic cyst comment: MRI 11/2022: pancreatic head and body cysts measuring up to 1 cm. 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 MEDICATIONS: Active and Recently Outpatient Medications (excluding Supplies): Active Outpatient Medications Status 1) DICLOFENAC NA 1% TOP GEL APPLY 2 GM TO AFFECTED AREA(S) FOUR ACTIVE TIMES A DAY NO MORE THAN 16 GM/DAY TO ANY LOWER EXTREMITY JOINT. NO MORE THAN 8 GM/DAY TO ANY UPPER EXTREMITY JOINT. MAX 32GM/DAY OVER ALL JOINTS.(MEASURE DOSE WITH RULER INSIDE BOX) Indication: FOR OSTEOARTHRITIS Inactive Outpatient Medications Status 1) DOXYCYCLINE HYCLATE 100MG TAB TAKE ONE TABLET BY MOUTH TWICE A DAY TAKE UNTIL FINISHED. AVOID SUN EXPOSURE WHILE TAKING. Indication: FOR SKIN OR SOFT TISSUE INFECTION 2) HCTZ 12.5MG/LOSARTAN 100MG TAB TAKE 1 TABLET BY MOUTH EVERY MORNING TO LOWER BLOOD PRESSURE 3) METOPROLOL SUCCINATE 200MG SA TAB TAKE ONE TABLET BY MOUTH ONCE A DAY FOR HEART/BLOOD PRESSURE. SWALLOW WHOLE, DO NOT CRUSH OR CHEW (TABLETS MAY BE CUT IN HALF). 4) SILDENAFIL CITRATE 100MG TAB TAKE ONE TABLET BY MOUTH EVERY WEEK NEEDED (TAKE 60 MINUTES PRIOR TO SEXUAL ACTIVITY) - LIMIT 6 DOSES PER 30 DAYS Indication: FOR ERECTILE DYSFUNCTION 5) VALACYCLOVIR HCL 500MG TAB TAKE ONE TABLET BY MOUTH TWICE A DAY FOR COLD SORES 6 Total Medications MEDICATION RECONCILIATION: completed REVIEW OF SYSTEMS: Constitutional: [...] smoke exposure. Gastrointestinal: denies n/v/d,constipation, abd pain, anorexia, dysphagia, hematochezia, melena, or flatulence. +occasional acid reflux Genitourinary: denies dysuria, urinary frequency, hematuria, urinary incontinence, urgency, flank Pain,urinary flow changes, or hesitancy Musculoskeletal: +back pain +left shoulder pain +bilateral thumb OA Skin: denies new lesions, pruritis, hair changes, [...] as listed in the electronic record): Temperature: 98 F [36.7 C] (11/13/2024 10:18) BP: 142/72 (11/13/2024 10:23) Pulse: 61 (11/13/2024 10:18) Resp: 16 (11/13/2024 10:18) PulsOx: 99% (11/13/2024 10:18) Pain: 0 (11/13/2024 10:18) Weight: Measurement DT WEIGHT LB(KG)[BMI] 11/13/2024 10:18 188.8(85.64)[31*] 08/12/2024 08:47 184(83.46)[30*] 05/15/2024 10:12 191.1(86.68)[31*] General: pleasant, well appearing adult in no [...] reviewed with patient and/or caregiver. ASSESSMENT/PLAN: 1)Annual -The patient was counseled regarding the appropriate use of alcohol, screening procedures and recommended schedule for colonoscopy, psa, cholesterol, thyroid and diabetes screening, prevention of dental and periodontal disease, diet, regular sustained exercise for at least 30 minutes 3-4 times per week, prostate cancer screening, regular use of seat belts. Recommend dilated eye exam and glaucoma screening every 2 years or as indicated by ophthalmology 2)VONDA: compliant with CPAP 3)HTN: blood pressure controlled on current medications, monitor blood pressure at home and report abnormal readings. DASH diet. Trend renal function 4)Erectile Dysfunction: Continue current medications on as [...] D Def: mendoza OTC, trend levels 7)Prediabetes: trend a1c, encouraged diet and exercise 8)Hepatic Steatosis: trend LFT's, encouraged diet and exercise 9)Renal Cysts: declines renal at this time, will continue to monitor 10)Tinnitus/Hearing Loss: established with Audiology, no acute issues or concerns 11)CKD Stage 3a: trend renal function, avoid nephrotoxic medications 12)Lumbar Spine OA: no acute issues or concerns, established with outside Pain Management 13)Pancreatic Cyst: reviewed; MRI due in 11/2024- ORDERED 14)Thumb OA: established with outside provider, received injections and doing PT. Has follow up scheduled in December 2024 15) HME: Labs 10/2024 Colonoscopy: 11/30/2022 at [facility]; Dr. Bon Ayala; repeat 5 years LDCT: N/A Immunizations: COVID-19 (Pfizer): 08/23/2020; 09/15/2020; 03/25/2021; declines booster PCV 20: 04/14/2022 Td: 06/23/2019 Shingrix: 06/22/2021; 10/13/2021 - Shared medical decision making occurred during this visit with the [facility]. -Questions answered and [facility] is agreeable with treatment plan. -All new medications discussed/reviewed with [facility]/caregiver including side effects/teratogenic side effects. -Labs/testing ordered discussed with /caregiver and education was provided during this visit RETURN TO CLINIC: 6 months SUMMARY STATEMENT: Plan of care has been discussed with including expected therapeutic benefits and potential side effects of prescribed medication and treatments. verbalizes understanding and is in agreement with the plan of care. Patient was instructed to keep all scheduled appointments and contact product managent intern for any additional problems. [facility] DIGITAL DIV[employer] CAPABILITY REMINDER: Patient is not interested in [facility] at this time. 'S RIGHT TO DECLINE STATEMENT [facility] understands they have the right to decline the use of [employer] at any time without adverse affects on their continued access to healthcare. HTN Assess for Elevated BP>=140/90 - N,P,PH: Repeat blood pressure: 138/70 /es/ ALFONSO ALEXIS MSN,SQL PROGRAMMER ANALYST- NURSE PRACTITIONER Signed: 11/13/2024 10:52 11/14/2024 ADDENDUM STATUS: COMPLETED Called patient regarding lab abnormalities Had cortisone injections to his thumbs this past sunday which may be a contributing factor to the elevated WBC count Advised to push fluids and repeat labs in the next 1-2 weeks He verbalized understanding --------- HLD: -Diet controlled -Last lipid panel: TRIGLYCERIDE 131 mg/dL 11/13/2024 10:57 CHOLESTEROL 210 H mg/dL 11/13/2024 10:57 HDL(New) 43 mg/dL 11/13/2024 10:57 CALCULATED LDL 141 mg/dL 11/13/2024 10:57 -ASCVD risk 22.7% (11/2024) indicating max tolerated statin Prediabetes: -a1c 5.4% (11/2024); 5.9% (10/2023); 5.9% (10/2022); 5.9% (09/2021) Hypertension -Patient is here for Hypertension follow up -The blood pressure is (well, poorly, marginally) controlled on current medication program with no side effects noted -Current medications: HCTZ 12.5mg/losartan 100mg, metoprolol 200mg, amlodipine 5mg -Renal function: CREATININE 1.62 H mg/dL 11/13/2024 10:57 EGFR (CKD-EPI 2020) 45.95 11/13/2024 10:57 -Denies any chest pain, shortness of breath, edema, headaches or blurred vision /veronica/ ALFONSO ALEXIS MSN,SQL PROGRAMMER ANALYST-BC NURSE PRACTITIONER Signed: 11/14/2024 08:13 11/26/2024 ADDENDUM STATUS: COMPLETED Called patient regarding results, slightly decreased RBC/H&H Stopped NSAID's 1 week ago because his back is feeling better Denies any blood in his stool Discussed possible causes, will plan to repeat in 2-3 months but advised him to call the clinic for any new symptoms Will mail FIT card Possible anemia from CKD Stage 3a CBC trends: 12/07/2024 RBC: 4.05 H&H: 12.7/37.2 11/13/2024: RBC: 4.07 H&H: 12.8/39.0 10/2023: RBC: 4.77 H&H: 15/42 + FIT 10/2022; had colonoscopy outside [place] 11/30/2022 at [facility]; Dr. Bon Ayala; repeat 5 years /es/ ALFONSO ALEXIS MSN,[facility] NURSE PRACTITIONER Signed: 11/27/2024 09:10 ALFONSO ALEXIS [facility] November 27, 2024 09:11 AM PHYSICIAN LETTERS: LOCAL TITLE: TEST RESULT GENERAL LETTER STL STANDARD TITLE: PHYSICIAN LETTERS DATE OF NOTE: NOVEMBER 27, 2024@09:11 ENTRY DATE: NOVEMBER 27, 2024@09:11:05 AUTHOR: ALFONSO ALEXIS EXP COSIGNER: URGENCY: STATUS: COMPLETED [facility] [address] [place] [address] NOVEMBER 27, 2024 MAGDALENO SMITH [address] [place] [address] Dear Magdaleno Smith, I would like to update you on your recent test results. CBC - A complete blood count (CBC) gives important information about the kinds and numbers of cells in the blood, especially red blood cells, white blood cells, and platelets. CBC BLOOD SP LB #[id number] Collection time: 2024@09:51 Test Name Result Units Range --------- ------ ----- ----- WBC 10.3 10*3/uL 3.6 - 11.2 RBC 4.05 L 10*6/uL 4.10 - 5.70 HGB 12.7 L g/dL 13.1 - 16.8 HCT 37.2 L % 38.2 - 48.4 MCV 91.9 fL 80.0 - 100.0 MCH 31.4 pg 27.0 - 34.0 MCHC 34.1 g/dL 33.0 - 36.0 RDW 13.2 % 11.8 - 15.1 PLT 248 10*3/uL 150 - 400 MPV 10.3 fL 7.5 - 11.2 NEUTROPHILS, AUTO % 57 % LYMPHOCYTES, AUTO % 29 % MONOCYTES, AUTO % 10 % EOSINOPHILS, AUTO % 3 % BASOPHILS, AUTO % 1 % NEUTROPHILS, ABSOLUTE 5.82 10*3/uL 2.10 - 8.00 LYMPHOCYTES, ABSOLUTE 3.01 10*3/uL 0.77 - 4.50 MONOCYTES, ABSOLUTE 0.99 H 10*3/uL 0.19 - 0.80 EOSINOPHILS, ABSOLUTE 0.30 10*3/uL 0.00 - 0.60 BASOPHILS, ABSOLUTE 0.09 10*3/uL 0.00 - 0.20 These results are abnormal. SLIGHTLY LOW/ABNORMAL RED BLOOD CELLS ALONG WITH HEMOGLOBIN AND HEMATOCRIT LABS FROM 11/13/2024 Collection time: November 13, 2024@10:57 Test Name Result Units Range --------- ------ ----- ----- WBC 12.5 H 10*3/uL 3.6 - 11.2 RBC 4.07 L 10*6/uL 4.10 - 5.70 HGB 12.8 L g/dL 13.1 - 16.8 HCT 39.0 % 38.2 - 48.4 MCV 95.8 fL 80.0 - 100.0 MCH 31.4 pg 27.0 - 34.0 MCHC 32.8 L g/dL 33.0 - 36.0 RDW 13.2 % 11.8 - 15.1 PLT 273 10*3/uL 150 - 400 MPV 10.5 fL 7.5 - 11.2 IMMATURE GRANS, AUTO ABS 0.38 H K/cmm 0.00 - 0.05 NEUTROPHILS 42 % 44 - 80 BAND NEUTROPHILS 1 % 0 - 7 LYMPHOCYTES 41 % 20 - 40 MONOCYTES 3 % 4 - 8 EOSINOPHILS 2 % 0 - 8 BASOPHILS 1 % 0 - 3 NEUT#-MDIFF 5.25 K/cmm 2.10 - 8.00 LYMPH#-MDIFF 6.13 H K/cmm 0.77 - 4.50 MONO#-MDIFF 0.38 K/cmm 0.19 - 0.80 EO#-MDIFF 0.25 K/cmm 0.00 - 0.60 BASO#-MDIFF 0.13 K/cmm 0.00 - 0.20 METAMYELOCYTES 1 % MYELOCYTES 1 % ATYPICAL LYMPHOCYTES 8 % 0 - 5 PLT. (SMEAR EST.) ADEQUATE Ref: ADEQUATE ANISOCYTOSIS 1+ POIKILOCYTOSIS 1+ POLYCHROMASIA 1+ NRBC% 0 #/100 (WBCs) IMMATURE PLT FRACTION 3.6 % 1.0 - 7.0 LABS FROM OCTOBER 2023 Collection time: Oct 18, 2023@11:43 Test Name Result Units Range --------- ------ ----- ----- WBC 10.4 10*3/uL 3.6 - 11.2 RBC 4.77 10*6/uL 4.10 - 5.70 HGB 15.0 g/dL 13.1 - 16.8 HCT 42.0 % 38.2 - 48.4 MCV 88.1 fL 80.0 - 100.0 MCH 31.4 pg 27.0 - 34.0 MCHC 35.7 g/dL 33.0 - 36.0 RDW 12.9 % 11.8 - 15.1 PLT 265 10*3/uL 150 - 400 MPV 10.2 fL 7.5 - 11.2 NEUTROPHILS, AUTO % 61 % LYMPHOCYTES, AUTO % 26 % MONOCYTES, AUTO % 8 % EOSINOPHILS, AUTO % 3 % BASOPHILS, AUTO % 1 % NEUTROPHILS, ABSOLUTE 6.34 10*3/uL 2.10 - 8.00 LYMPHOCYTES, ABSOLUTE 2.67 10*3/uL 0.77 - 4.50 MONOCYTES, ABSOLUTE 0.87 H 10*3/uL 0.19 - 0.80 EOSINOPHILS, ABSOLUTE 0.32 10*3/uL 0.00 - 0.60 BASOPHILS, ABSOLUTE 0.07 10*3/uL 0.00 - 0.20 CHEM 7 - This is important information about the current status of your kidneys, liver, and electrolyte and acid/base balance as well as of your blood sugar and blood proteins. SODIUM 139 mEq/L 2024 09:51 POTASSIUM 4.1 mEq/L 2024 09:51 CHLORIDE 109 H mEq/L 2024 09:51 UREA NITROGEN 28.2 H mg/dL 2024 09:51 CREATININE 1.36 H mg/dL 2024 09:51 CALCIUM 9.3 mg/dL 2024 09:51 CARBON DIOXIDE 21 L mEq/L 2024 09:51 GLUCOSE 103 H mg/dL 2024 09:51 EGFR (CKD-EPI 2020) 56.33 2024 09:51 These results are abnormal. KIDNEY FUNCTION (CREATININE AND EGFR) ARE AT BASELINE; DECLINED BUT CONSISTENT WITH PREVIOUS RESULTS/CHRONIC KIDNEY DISEASE Chronic kidney disease (CKD) means your kidneys are damaged and cant filter blood the way they should. The disease is called chronic because the damage to your kidneys happens slowly over a long period of time. LIVER FUNCTION PANEL - These are tests for liver function: PROTEIN 6.9 g/dL 2024 09:51 ALBUMIN 4.2 g/dL 2024 09:51 TOTAL BILIRUBIN 0.6 mg/dL 2024 09:51 ALKALINE PHOSPHATASE 81 U/L 2024 09:51 AST/SGOT 23 U/L 2024 09:51 ALT/SGPT 24 U/L 2024 09:51 These readings are within normal limits. PLAN Please continue your treatment as we discussed during your visit. If you have any questions please call your lining caser. I look forward to seeing you at your next clinic appointment. Thank you for choosing the [facility] for your healthcare. CBC trends: 12/07/2024 RBC: 4.05 H&H: 12.7/37.2 11/13/2024: RBC: 4.07 H&H: 12.8/39.0 10/2023: RBC: 4.77 H&H: I HAVE PUT AT THE TOP YOUR LAST THREE COMPLETE BLOOD COUNT TEST RESULTS; YOUR RED BLOOD CELLS ALONG WITH YOUR HEMOGLOBIN AND HEMATOCRIT HAVE BEEN SLIGHTLY LOW ON THE PAST 2 NORMAL IRON COUNTS I AM ORDERING YOU A FIT CARD THAT EVALUATES FOR HIDDEN BLOOD IN YOUR STOOL I WOULD LIKE TO KEEP A CLOSER EYE ON YOUR BLOOD COUNTS AND REPEAT THEN IN 2-3 MONTHS PLEASE SHOW THESE RESULTS TO YOUR OUTSIDE PROVIDER PLEASE LET ME KNOW IF YOU HAVE ANY QUESTIONS OR CONCERNS FUTURE APPOINTMENTS: 05/20/2025 11:00 TEENA-PACT E11 PCP Sincerely, ALFONSO ALEXIS MSN,[facility]- NURSE PRACTITIONER MAGDALENO SMITH JESSICA K [facility] November 14, 2024 07:59 AM PHYSICIAN LETTERS: LOCAL TITLE: TEST RESULT GENERAL LETTER STL STANDARD TITLE: PHYSICIAN LETTERS DATE OF NOTE: NOVEMBER 14, 2024@07:59 ENTRY DATE: NOVEMBER 14, 2024@07:59:44 AUTHOR: ALFONSO ALEXIS EXP COSIGNER: URGENCY: STATUS: COMPLETED [facility] [address] [place] [address] NOVEMBER 14, 2024 MAGDALENO SMITH [address] [place], [place] [address] Dear Magdaleno Smith, I would like to [...] optimal is between 100 and 129). TRIGLYCERIDE 131 mg/dL 11/13/2024 10:57 CHOLESTEROL 210 H mg/dL 11/13/2024 10:57 HDL(New) 43 mg/dL 11/13/2024 10:57 CALCULATED LDL 141 mg/dL 11/13/2024 10:57 These results are abnormal. TOTAL OR OVERALL CHOLESTEROL IS ELEVATED AT 210 AND LDL (BAD CHOLESTEROL) IS 141 Cholesterol Results HDL is good cholesterol and [...] sugar or glucose level result GLUCOSE GLUCOSE 100 H mg/dL 11/13/2024 10:57 These readings are within normal limits. A normal fasting blood glucose test: a level of 70-99 is normal Random blood glucose (not fasting) will depend on when you last ate: levels should be lower than 125 if you do not have a history of diabetes HEMOGLOBIN A1C - Gives us information about your diabetes (sugar or glucose) control over the past 3 months. Your target is to keep your A1C below 6 %. HGA1C 5.4 % 11/13/2024 10:57 These readings are within normal limits. Your A1C Result A normal A1C level [...] to screen for kidney problems. uACR (STL) 4 mg/g 0 - 29 CREATININE URINE/OTHERS 153.8 mg/dL 63.0 - 166.0 URINE ALBUMIN (PB-STL) 6 mg/L Ref: No range refer to micral/creat [...] cells, white blood cells, and platelets. HGB 12.8 L g/dL 11/13/2024 10:57 HEMATOCRIT 39.0 % (11/13/24 10:57) PLT 273 10*3/uL 11/13/2024 10:57 WHITE BLOOD COUNT 12.5 10*3/uL H (11/13/24 10:57) These results are abnormal. WHITE BLOOD CELL COUNT IS HIGH AND HEMOGLOBIN LEVEL IS SLIGHTLY LOW; RECOMMEND REPEATING IN 1 MONTH IRON STUDIES - Test to show iron deficiency. IRON 81 ug/dL 11/13/2024 10:57 TIBC 340 ug/dL 11/13/2024 10:57 IRON SATURATION 24 %SAT 11/13/2024 10:57 These readings are within normal limits. B12 - Helps maintain healthy nerve cells, red blood cells, and is also needed to make DNA. B12 523 pg/mL 11/13/2024 10:57 These readings are within normal limits. Vitamin B12, or cobalamin, is naturally found in animal foods. It can also be added to foods or supplements. Vitamin B12 is needed to form red blood cells and DNA. It is also a simon player in the function and development of brain and nerve cells CHEM 7 - This is important information about the current status of your kidneys, liver, and electrolyte and acid/base balance as well as of your blood sugar and blood proteins. SODIUM 142 mEq/L 11/13/2024 10:57 POTASSIUM 5.3 H mEq/L 11/13/2024 10:57 CHLORIDE 111 H mEq/L 11/13/2024 10:57 UREA NITROGEN 33.7 H mg/dL 11/13/2024 10:57 CREATININE 1.62 H mg/dL 11/13/2024 10:57 CALCIUM 9.6 mg/dL 11/13/2024 10:57 CARBON DIOXIDE 22 mEq/L 11/13/2024 10:57 GLUCOSE 100 H mg/dL 11/13/2024 10:57 EGFR (CKD-EPI 2021) 45.95 11/13/2024 10:57 These results are abnormal. KIDNEY FUNCTION (CREATININE AND EGFR) ARE DECLINED; MAKE SURE YOU ARE STAYING WELL HYDRATED AND ELECTROLYTES ARE ABNORMAL LIVER FUNCTION PANEL - These are tests for liver function: PROTEIN 7.3 g/dL 11/13/2024 10:57 ALBUMIN 4.5 g/dL 11/13/2024 10:57 TOTAL BILIRUBIN 0.6 mg/dL 11/13/2024 10:57 ALKALINE PHOSPHATASE 84 U/L 11/13/2024 10:57 AST/SGOT 40 H U/L 11/13/2024 10:57 ALT/SGPT 63 H U/L 11/13/2024 10:57 These results are abnormal. LIVER FUNCTION STUDIES (AST AND ALT) ARE ELEVATED PSA - Prostate-specific antigen is a protein produced by cells of the prostate gland. The PSA test measures the level of PSA in the blood. PSA PROST. SPECIFIC AG.(PB-STL) 2.942 ng/mL 11/13/2024 10:57 These readings are within normal limits. TSH - Thyroid-stimulating hormone (also known as TSH or thyrotropin) is a peptide hormone synthesized and secreted by thyrotrope cells in the anterior pituitary gland, which regulates the endocrine function of the thyroid gland. TSH TSH 2.361 uIU/mL 11/13/2024 10:57 These readings are within normal limits. VITAMIN D - Helps promote the proper utilization of calcium and phosphorus, thereby producing proper bone maintenance. VITAMIN D, 25-HYDROXY 33.4 ng/mL 11/13/2024 10:57 These readings are within normal limits. Vitamin D Status: Deficiency <20 ng/mL Insufficiency 20-30 ng/mL Sufficiency 30-100 ng/mL Toxicity >100 ng/mL URINALYSIS - A urinalysis (or UA) is an array of tests performed on urine and one of the most common methods of medical diagnosis. URINALYSIS URINE COLOR Light-Yellow 11/13/2024 11:03 APPEARANCE Clear 11/13/2024 11:03 U.PH 6.0 11/13/2024 11:03 U.BILIRUBIN Negative mg/dL 11/13/2024 11:03 U.NITRITE Negative mg/dL 11/13/2024 11:03 These readings are within normal limits. OTHER TEST RESULTS PLAN Please continue your treatment as we discussed during your visit. If you have any questions please call your lining caser. I look forward to seeing you at your next clinic appointment. Thank you for choosing the [facility] for your healthcare. # TOTAL OR OVERALL CHOLESTEROL IS ELEVATED AT 210 AND LDL (BAD CHOLESTEROL) IS 141 --> RECOMMEND DIET AND EXERCISE # WHITE BLOOD CELL COUNT IS HIGH AND HEMOGLOBIN LEVEL IS SLIGHTLY LOW; RECOMMEND REPEATING IN 2-4 WEEKS --> COULD BE RELEATED TO THE RECENT CORTISONE INJECTIONS # KIDNEY FUNCTION (CREATININE AND EGFR) ARE DECLINED; MAKE SURE YOU ARE STAYING WELL HYDRATED AND ELECTROLYTES ARE ABNORMAL -REPEAT IN THE NEXT FEW WEEKS # LIVER FUNCTION STUDIES (AST AND ALT) ARE ELEVATED REPEAT LABS IN THE NEXT FEW WEEKS; ORDERS ARE IN AND YOU CAN JUST GO TO LAB CONTINUE YOUR SAME MEDICATION AND DOSING Please let me know if you have any questions or concerns FUTURE APPOINTMENTS: No future appointments Sincerely, ALFONSO ALEXIS MSN,[facility]- NURSE PRACTITIONER MAGDALENO SMITH JESSICA K [facility] November 13, 2024 10:24 AM PRIMARY CARE NOTE: LOCAL TITLE: PRIMARY CARE PROVIDER ESTABLISHED VISIT [facility] STANDARD TITLE: PRIMARY CARE NOTE DATE OF NOTE: NOVEMBER 13, 2024@10:24 ENTRY DATE: NOVEMBER 13, 2024@10:24:55 AUTHOR: ALFONSO ALEXIS EXP COSIGNER: URGENCY: STATUS: COMPLETED PRIMARY CARE PROVIDER ESTABLISHED VISIT ST Has ADDENDA REASON FOR VISIT/CHIEF COMPLAINT: routine HPI: This is a 68 year old presenting today for management of chronic disease Walks 2 miles every morning Helps his 93 year old mom Gets folliculitis every few months to his scalp, treats with Doxy for 10 days Outside Providers: PCP: Dr. Baker Sleep Apnea: [...] HCTZ 12.5mg/losartan 100mg, metoprolol 200mg, amlodipine 5mg -Renal function: CREATININE 1.33 H mg/dL 10/18/2023 [...] -Valacyclovir 500mg BID PRN Vitamin D Def: -45.3 (10/2023); 28 (09/2021) [...] sent him to see Neurosurgery, Dr. Moustapha Jimenze -Was getting injections/ablation -Had injection in right piriformis muscle -Had JOVITA Had MRI lumbar spine 03/06/[address] Moustapha Jimenez Mild lumbar spondylosis, worsened from 04/14/2013 Moderate to severe facet joint osteoarthritis Left Thumb OA: -x-ray 07/2024: Severe osteoarthritis first carpometacarpal joint -diclofenac gel -Received injections from outside provider, Dr. Lawson at [facility] What is your goal for today: routine visit Goes to [place] [employer] SOCIAL HISTORY: NICOTINE: None ALCOHOL: None ILLICIT DRUGS: None SOURCE(S) OF HISTORY: Patient PAST MEDICAL HISTORY: 1) Erectile Dysfunction ([facility] [id number]) 2) HTN - Hypertension ([facility] [id number]) 3) Herpes simplex type 1 infection 4) Obstructive Sleep Apnea of Adult ([facility] [id number]) 5) Vitamin D Deficiency ([facility] [id number]) 6) Prediabetes ([facility] [id number]) 7) Steatosis of liver 8) Multiple renal cysts comment: -CT 11/2021: Numerous bilateral simple cysts comment: MRI 11/2022: . Bilateral simple and hemorrhagic renal cysts. No albert 9) Tinnitus 10) Sensorineural hearing loss, bilateral 11) Chronic kidney disease stage 3A 12) Pancreatic cyst comment: MRI 11/2022: pancreatic head and body cysts measuring up to 1 cm. 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 MEDICATIONS: Active and Recently Outpatient Medications (excluding Supplies): Active Outpatient Medications Status 1) DICLOFENAC NA 1% TOP GEL APPLY 2 GM TO AFFECTED AREA(S) FOUR ACTIVE TIMES A DAY NO MORE THAN 16 GM/DAY TO ANY LOWER EXTREMITY JOINT. NO MORE THAN 8 GM/DAY TO ANY UPPER EXTREMITY JOINT. MAX 32GM/DAY OVER ALL JOINTS.(MEASURE DOSE WITH RULER INSIDE BOX) Indication: FOR OSTEOARTHRITIS Inactive Outpatient Medications Status 1) DOXYCYCLINE HYCLATE 100MG TAB TAKE ONE TABLET BY MOUTH TWICE A DAY TAKE UNTIL FINISHED. AVOID SUN EXPOSURE WHILE TAKING. Indication: FOR SKIN OR SOFT TISSUE INFECTION 2) HCTZ 12.5MG/LOSARTAN 100MG TAB TAKE 1 TABLET BY MOUTH EVERY MORNING TO LOWER BLOOD PRESSURE 3) METOPROLOL SUCCINATE 200MG SA TAB TAKE ONE TABLET BY MOUTH ONCE A DAY FOR HEART/BLOOD PRESSURE. SWALLOW WHOLE, DO NOT CRUSH OR CHEW (TABLETS MAY BE CUT IN HALF). 4) SILDENAFIL CITRATE 100MG TAB TAKE ONE TABLET BY MOUTH EVERY WEEK NEEDED (TAKE 60 MINUTES PRIOR TO SEXUAL ACTIVITY) - LIMIT 6 DOSES PER 30 DAYS Indication: FOR ERECTILE DYSFUNCTION 5) VALACYCLOVIR HCL 500MG TAB TAKE ONE TABLET BY MOUTH TWICE A DAY FOR COLD SORES 6 Total Medications MEDICATION RECONCILIATION: completed REVIEW OF SYSTEMS: Constitutional: [...] smoke exposure. Gastrointestinal: denies n/v/d,constipation, abd pain, anorexia, dysphagia, hematochezia, melena, or flatulence. +occasional acid reflux Genitourinary: denies dysuria, urinary frequency, hematuria, urinary incontinence, urgency, flank Pain,urinary flow changes, or hesitancy Musculoskeletal: +back pain +left shoulder pain +bilateral thumb OA Skin: denies new lesions, pruritis, hair changes, [...] as listed in the electronic record): Temperature: 98 F [36.7 C] (11/13/2024 10:18) BP: 142/72 (11/13/2024 10:23) Pulse: 61 (11/13/2024 10:18) Resp: 16 (11/13/2024 10:18) PulsOx: 99% (11/13/2024 10:18) Pain: 0 (11/13/2024 10:18) Weight: Measurement DT WEIGHT LB(KG)[BMI] 11/13/2024 10:18 188.8(85.64)[31*] 08/12/2024 08:47 184(83.46)[30*] 05/15/2024 10:12 191.1(86.68)[31*] General: pleasant, well appearing adult in no [...] reviewed with patient and/or caregiver. ASSESSMENT/PLAN: 1)Annual -The patient was counseled regarding the appropriate use of alcohol, screening procedures and recommended schedule for colonoscopy, psa, cholesterol, thyroid and diabetes screening, prevention of dental and periodontal disease, diet, regular sustained exercise for at least 30 minutes 3-4 times per week, prostate cancer screening, regular use of seat belts. Recommend dilated eye exam and glaucoma screening every 2 years or as indicated by ophthalmology 2)VONDA: compliant with CPAP 3)HTN: blood pressure controlled on current medications, monitor blood pressure at home and report abnormal readings. DASH diet. Trend renal function 4)Erectile Dysfunction: Continue current medications on as [...] D Def: mendoza OTC, trend levels 7)Prediabetes: trend a1c, encouraged diet and exercise 8)Hepatic Steatosis: trend LFT's, encouraged diet and exercise 9)Renal Cysts: declines renal at this time, will continue to monitor 10)Tinnitus/Hearing Loss: established with Audiology, no acute issues or concerns 11)CKD Stage 3a: trend renal function, avoid nephrotoxic medications 12)Lumbar Spine OA: no acute issues or concerns, established with outside Pain Management 13)Pancreatic Cyst: reviewed; MRI due in 11/2024- ORDERED 14)Thumb OA: established with outside provider, received injections and doing PT. Has follow up scheduled in December 2024 15) HME: Labs 10/2024 Colonoscopy: 11/30/2022 at [facility]; Dr. Bon Ayala; repeat 5 years LDCT: N/A Immunizations: COVID-19 (Pfizer): 08/23/2020; 09/15/2020; 03/25/2021; declines booster PCV 20: 04/14/2022 Td: 06/23/2019 Shingrix: 06/22/2021; 10/13/2021 - Shared medical decision making occurred during this visit with the . -Questions answered and is agreeable with treatment plan. -All new medications discussed/reviewed with [facility]/caregiver including side effects/teratogenic side effects. -Labs/testing ordered discussed with [facility]/caregiver and education was provided during this visit RETURN TO CLINIC: 6 months SUMMARY STATEMENT: Plan of care has been discussed with including expected therapeutic benefits and potential side effects of prescribed medication and treatments. [facility] verbalizes understanding and is in agreement with the plan of care. Patient was instructed to keep all scheduled appointments and contact product managent intern for any additional problems. [facility] DIGITAL DIVIDE CAPABILITY REMINDER: Patient is not interested in [facility] at this time. 'S RIGHT TO DECLINE STATEMENT understands they have the right to decline the use of [employer] at any time without adverse affects on their continued access to healthcare. HTN Assess for Elevated BP>=140/90 - N,P,PH: Repeat blood pressure: 138/70 /es/ ALFONSO ALEXIS MSN,SQL PROGRAMMER ANALYST-BC NURSE PRACTITIONER Signed: 11/13/2024 10:52 11/14/2024 ADDENDUM STATUS: COMPLETED Called patient regarding lab abnormalities Had cortisone injections to his thumbs this past sunday which may be a contributing factor to the elevated WBC count Advised to push fluids and repeat labs in the next 1-2 weeks He verbalized understanding --------- HLD: -Diet controlled -Last lipid panel: TRIGLYCERIDE 131 mg/dL 11/13/2024 10:57 CHOLESTEROL 210 H mg/dL 11/13/2024 10:57 HDL(New) 43 mg/dL 11/13/2024 10:57 CALCULATED LDL 141 mg/dL 11/13/2024 10:57 -ASCVD risk 22.7% (11/2024) indicating max tolerated statin Prediabetes: -a1c 5.4% (11/2024); 5.9% (10/2023); 5.9% (10/2022); 5.9% (09/2021) Hypertension -Patient is here for Hypertension follow up -The blood pressure is (well, poorly, marginally) controlled on current medication program with no side effects noted -Current medications: HCTZ 12.5mg/losartan 100mg, metoprolol 200mg, amlodipine 5mg -Renal function: CREATININE 1.62 H mg/dL 11/13/2024 10:57 EGFR (CKD-EPI 2020) 45.95 11/13/2024 10:57 -Denies any chest pain, shortness of breath, edema, headaches or blurred vision /es/ ALFONSO ALEXIS MSN,SQL PROGRAMMER ANALYST-BC NURSE PRACTITIONER Signed: 11/14/2024 08:13 11/26/2024 ADDENDUM STATUS: COMPLETED Called patient regarding results, slightly decreased RBC/H&H Stopped NSAID's 1 week ago because his back is feeling better Denies any blood in his stool Discussed possible causes, will plan to repeat in 2-3 months but advised him to call the clinic for any new symptoms Will mail FIT card Possible anemia from CKD Stage 3a CBC trends: 12/07/2024 RBC: 4.05 H&H: 12.7/37.2 11/13/2024: RBC: 4.07 H&H: 12.8/39.0 10/2023: RBC: 4.77 H&H: 15/42 + FIT 10/2022; had colonoscopy outside [place] 11/30/2022 at [facility]; Dr. Bon Ayala; repeat 5 years /veronica/ ALFONSO ALEXIS MSN,SQL PROGRAMMER ANALYST-BC NURSE PRACTITIONER Signed: 11/27/2024 09:10 11/27/2024 ADDENDUM STATUS: COMPLETED [facility] [place]--> can you please mail a FIT card to the [facility]? Thank you /veronica/ ALFONSO ALEXIS MSN,SQL PROGRAMMER ANALYST-BC NURSE PRACTITIONER Signed: 11/27/2024 09:16 Receipt Acknowledged By: 12/03/2024 15:56 /veronica/ ROBER SERRANO 12/03/2024 ADDENDUM STATUS: COMPLETED PER PROVIDER REQ FIT KIT WAS MAILED ON THIS DATE /veronica/ ROBER EDMONDS AMSA Signed: 12/03/2024 15:57 ALFONSO ALEXIS [facility] November 13, 2024 10:19 AM NURSING NOTE: LOCAL TITLE: V15 PACT FACE TO FACE NOTE STL STANDARD TITLE: NURSING NOTE DATE OF NOTE: NOVEMBER 13, 2024@10:19 ENTRY DATE: NOVEMBER 13, 2024@10:19:08 AUTHOR: JAGDISH SMART EXP COSIGNER: URGENCY: STATUS: COMPLETED Provider Visit: Patient Identifiers : Full Name Date of Reason for visit: Established Follow-Up Mode of Arrival: Ambulatory Allergy Review: AMPICILLIN Allergy list reviewed and remains current. Recent Vital Signs: Temperature: 98 F [36.7 C] (11/13/2024 10:18) Pulse: 61 (11/13/2024 10:18) Respiration: 16 (11/13/2024 10:18) B/P: 158/84 (11/13/2024 10:18) Pain: 0 (11/13/2024 10:18) Wt: 188.8 lb [85.64 kg] (11/13/2024 10:18) Ht: 66 in [167.6 cm] (08/21/2023 10:55) BMI: 30.5 POX: 99% (11/13/2024 10:18) Would you like to discuss any personal problem, family problem, alcohol use, drug use, or a mental or emotional illness? No My [facility] ([facility]), please select appointment type: Face to face: Yes- Done Contact provided Primary Care phone number and encouraged to call if any questions or concerns. Review that after hours nurse line [phone] and emergency room are available 05/02 for patient use. Contact verbalized good understanding. Suicide Screen - V: C-SSRS Screening [place] Suicide Severity Rating Scale (C-SSRS) screener 1. Over the past month, have you [...] due to responses to other questions. Depression Screening - V: Perform PHQ-2 A PHQ-2 screen was performed. The score was 0 which is a negative screen for depression. Over the past two weeks, how often have you been bothered by the following problems? 1. Little interest or pleasure in doing things Not at all 2. Feeling down, depressed, or hopeless Not at all Homelessness/Food Insecurity Screen - DI,L,N,P,PH,PS,S,U: In the past 2 months, have you [...] Not worried about housing near future The [facility] reports the following: Within the past 12 months, you worried whether your food would run out before you got money to buy more. Never true Within the past 12 months, the food you bought just didn't last and you didn't have money to get more. Never true Tobacco Use Screening - AT,DE,L,M,N,P,PH,PS,RT,S,U: The patient has never smoked cigarettes. The patient has never used other types of tobacco. [facility] MAP: PERSONAL HEALTH PLAN INVENTORY & MAP [facility]'s Response: being retired SHARED GOALS increase shortness of breath, cortisone injections in bilateral thumbs, /es/ Jagdish Smart LPN LICENSED PRACTICAL NURSE Signed: 11/13/2024 10:21 JAGDISH SMART [facility]
--- OUTSIDE RECORDS SUMMARY | 2024-12-22 08:00 | XMS_ITS | Continuity of Care Document ---
Author Name [facility] Organization [facility] Care Team Providers Care Technical Service Representative Name Role Phone [facility] Unavailable Unavailable Problems Combined list of problems from Department of Defense and Veterans Affairs facilities. It does not include entries that were removed or entered in error. Problem Status Onset Date Problem Type Date of Resolution Comments Source Chronic kidney disease stage 3A Active Condition [facility] Erectile Dysfunction (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 [id number]) Active Condition [facility] Multiple renal cysts Active Condition Oct 13, 2022 Entered By: ALFONSO ALEXIS Comment: -CT 11/2021: Numerous bilateral simple cystsMay 2022 Entered By: ALFONSO ALEXIS Comment: MRI 11/2022: . Bilateral simple and hemorrhagic renal cysts. No suspicious lesions [facility] Obstructive Sleep Apnea of Adult ([facility] [id number]) Active Condition [facility] Osteoarthritis of lumbar spine Active Condition [facility] Pancreatic cyst Active Condition November 29, 2022 Entered By: ALFONSO ALEXIS Comment: MRI 11/2022: pancreatic head and body cysts measuring up to 1 cm. No pancreatic ductal dilation. Follow up pancreatic MRI or CT in 2 years to confirm stability. DUE 11/2024 [facility] Prediabetes ([facility] [id number]) Active Condition [facility] Sensorineural hearing loss, bilateral Active Condition [facility] Steatosis of liver Active Condition [facility] Tinnitus Active Condition [facility] Vitamin D Deficiency ([facility] [id number]) Active Condition [facility] Diagnosis: ICD-10-CM Z00.00 Encntr for general adult medical exam w/o abnormal findings Active Diagnosis [facility] Diagnosis: ICD-10-CM S66.912A Strain of unsp musc/fasc/tend at wrs/hnd lv, left hand, init Active Diagnosis [facility] Diagnosis: ICD-10-CM H90.3 Sensorineural hearing loss, bilateral Active Diagnosis [facility] Diagnosis: ICD-10-CM I10 Essential (primary) hypertension Active Diagnosis [facility] Diagnosis: ICD-10-CM Q45.2 Congenital pancreatic cyst Active Diagnosis [facility] Diagnosis: ICD-10-CM H81.11 Benign paroxysmal vertigo, right ear Active Diagnosis [facility] Medications Combined list of outpatient medications from Department of Defense and [facility] Affairs facilities.Medications provided include 1) outpatient medications from the last 15 months, and 2) patient-reported medications. Medication Details Route Status Patient Instructions Prescription Expires Prescription Number Last Dispense Date Ordering Provider Order Date Order Qty Source AMLODIPINE BESYLATE 5MG TAB TAKE ONE TABLET BY MOUTH ONCE A DAY FOR HIGH BLOOD PRESSURE ORAL SUSPEND ED 11/14/2025 [id number] 5 YAZMIN ALEXIS 2024 90 [facility] AMLODIPINE BESYLATE 5MG TAB TAKE ONE TABLET BY MOUTH ONCE A DAY ORAL 08/13/2024 [id number] 4 YAZMIN ALEXIS 2023 90 [facility] DICLOFENAC NA 1% GEL,TOP APPLY 2 GM TO AFFECTED AREA(S) FOUR TIMES A DAY NO MORE THAN 16 GM/DAY TO ANY LOWER EXTREMIT Y JOINT. NO MORE THAN 8 GM/DAY TO ANY UPPER EXTREMIT Y JOINT. MAX 32GM/DAY OVER ALL JOINTS.( MEASURE DOSE WITH RULER INSIDE BOX) TOPICA L SUSPEND ED 11/14/2025 [id number] 5 YAZMIN ALEXISCA Priti 2024 300 [facility] DICLOFENAC NA 1% GEL,TOP APPLY 2 GM TO AFFECTED AREA(S) FOUR TIMES A DAY NO MORE THAN 16 GM/DAY TO ANY LOWER EXTREMIT Y JOINT. NO MORE THAN 8 GM/DAY TO ANY UPPER EXTREMIT Y JOINT. MAX 32GM/DAY OVER ALL JOINTS.( MEASURE DOSE WITH RULER INSIDE BOX) TOPICA L DISCONT INUED 08/13/2025 [id number] 5 YAZMIN ALEXIS 2024 300 [facility] DOXYCYCLINE HYCLATE 100MG TAB TAKE ONE TABLET BY MOUTH TWICE A DAY TAKE UNTIL FINISHED . AVOID SUN EXPOSURE WHILE TAKING. ORAL 10/22/2024 [id number] 5 YAZMIN ALEXIS 2024 20 [facility] DOXYCYCLINE HYCLATE 100MG TAB TAKE ONE TABLET BY MOUTH TWICE A DAY FOR SKIN OR SOFT TISSUE INFECTIO N TAKE UNTIL FINISHED . AVOID SUN EXPOSURE WHILE TAKING. ORAL 09/11/2024 [id number] 5 YAZMIN ALEXIS 2024 20 [facility] HYDROCHLORO THIAZIDE 12.5MG/LOSA RTAN POTASSIUM 100MG TAB TAKE 1 TABLET BY MOUTH EVERY MORNING TO LOWER BLOOD PRESSURE ORAL ACTIVE 11/14/2025 [id number] 5 YAZMIN ALEXIS 2024 90 [facility] HYDROCHLORO THIAZIDE 12.5MG/LOSA RTAN POTASSIUM 100MG TAB TAKE 1 TABLET BY MOUTH EVERY MORNING TO LOWER BLOOD PRESSURE ORAL DISCONT INUED 10/18/2024 [id number] 5 YAZMIN ALEXIS 2023 90 [facility] METOPROLOL SUCCINATE 200MG TAB,SA TAKE ONE TABLET BY MOUTH ONCE A DAY FOR HEART/BL OOD PRESSURE . SWALLOW WHOLE, DO NOT CRUSH OR CHEW (TABLETS MAY BE CUT IN HALF). ORAL ACTIVE 11/14/2025 [id number] 5 YAZMIN ALEXIS 2024 90 [facility] METOPROLOL SUCCINATE 200MG TAB,SA TAKE ONE TABLET BY MOUTH ONCE A DAY FOR HEART/BL OOD PRESSURE . SWALLOW WHOLE, DO NOT CRUSH OR CHEW (TABLETS MAY BE CUT IN HALF). ORAL DISCONT INUED 10/18/2024 [id number] 5 YAZMIN ALEXIS 2023 90 [facility] SILDENAFIL CITRATE 100MG TAB TAKE ONE TABLET BY MOUTH EVERY WEEK NEEDED FOR ERECTILE DYSFUNCT ION (TAKE 60 MINUTES PRIOR TO SEXUAL ACTIVITY ) - LIMIT 6 DOSES PER 30 DAYS ORAL ACTIVE 11/14/2025 [id number] 5 YAZMIN ALEXIS 2024 18 [facility] SILDENAFIL CITRATE 100MG TAB TAKE ONE TABLET BY MOUTH EVERY WEEK NEEDED FOR ERECTILE DYSFUNCT ION (TAKE 60 MINUTES PRIOR TO SEXUAL ACTIVITY ) - LIMIT 6 DOSES PER 30 DAYS ORAL DISCONT INUED 10/18/2024 [id number] 5 YAZMIN ALEXIS 2023 18 [facility] VALACYCLOVI R HCL 500MG TAB TAKE ONE TABLET BY MOUTH TWICE A DAY FOR COLD SORES ORAL ACTIVE 11/14/2025 [id number] 5 YAZMIN ALEXIS 2024 20 [facility] VALACYCLOVI R HCL 500MG TAB TAKE ONE TABLET BY MOUTH TWICE A DAY FOR COLD SORES ORAL DISCONT INUED 10/18/2024 [id number] 5 YAZMIN ALEXIS 2023 20 [facility] Allergies, Adverse Reactions, Alerts Combined list of allergies from Department of Defense and Veterans Affairs facilities. It does not include entries that were removed or entered in error. Substance Category Reaction Severity Reaction type Status Date Reported Comments Source AMPICILLIN Propensity to adverse reactions to drug (finding) Urticaria active 9 [facility] Immunizations Combined list of available immunizations from the Department of Defense and Veterans Affairs facilities. Immunization Series Date Given Administered By Site Reaction Lot Number CVX Code Drug Panel Wirer Status Comments Source INFLUENZA, HIGH-DOSE, TRIVALENT, PF 2023 PIPPA HERNANDEZ RIGHT DELTO ID [id number] 135 complet ed [facility] INFLUENZA, HIGH-DOSE, QUADRIVALENT 2022 DAVIDPIPPA LIM LEFT DELTO ID [id number] 197 complet ed [facility] INFLUENZA VACCINE, QUADRIVALENT, ADJUVANTED 2021 205 complet ed [facility] PNEUMOCOCCAL CONJUGATE PCV20, POLYSACCHARID E [id number] CONJUGATE, ADJUVANT, PF 2021 216 complet ed [facility] ZOSTER RECOMBINANT 2 2021 187 complet ed [facility] ZOSTER RECOMBINANT 1 2020 187 complet ed [facility] COVID-19 ([employer]), MRNA, LNP-S, PF, 30 MCG/0.3 ML DOSE 3 2020 208 complet ed PFR; [id number]; 1 [facility] COVID-19 ([employer]), MRNA, LNP-S, PF, 30 MCG/0.3 ML DOSE 2 2020 208 complet ed PFR; [id number]; 1 [facility] ([employer]), MRNA, LNP-S, PF, 30 MCG/0.3 ML DOSE 1 2020 208 complet ed PFR; [id number]; 1 [facility] TD(ADULT) UNSPECIFIED FORMULATION 1 2018 139 complet ed HISTORICA L INFORMATI ON - FROM OTHER REGISTRY, [facility] INFLUENZA, UNSPECIFIED FORMULATION 2018 88 complet ed [facility] Results Combined list of recent chemistry, hematology and other laboratory results from Department of Defense and Veterans Affairs, ranging from 15 months to all on record, depending upon the facility. Order Name Results Value Reference Range Date Interpretation Specimen Comments Source COMPREHE NSIVE METABOLI C PANEL CREATININE [MASS/VOLU ME] IN SERUM OR PLASMA 1.36 mg/dL 0.70 - 1.30 11/25 H Specimen Type: PLASMA Comment: No hemolysis noted. Ordering Provider: FREDDIE ALEXIS Report Released Date/Time: November 14, 2024 08:13 AM Reporting Lab: [facility] [place] [address] Performing Lab: [facility] DIVISION COMPREHE NSIVE METABOLI C PANEL UREA NITROGEN [MASS/VOLU ME] IN SERUM OR PLASMA 28.2 mg/dL 9.0 - 25.0 11/25 H Specimen Type: PLASMA Comment: No hemolysis noted. Ordering Provider: FREDDIE ALEXIS Report Released Date/Time: November 14, 2024 08:13 AM Reporting Lab: [facility] [place] [address] Performing Lab: [facility] DIVISION COMPREHE NSIVE METABOLI C PANEL GLUCOSE [MASS/VOLU ME] IN SERUM OR PLASMA 103 mg/dL 72 - 99 11/25 H Specimen Type: PLASMA Comment: No hemolysis noted. Ordering Provider: FREDDIE ALEXIS Report Released Date/Time: November 14, 2024 08:13 AM Reporting Lab: [facility] [place] [address] Performing Lab: [facility] DIVISION COMPREHE NSIVE METABOLI C PANEL SODIUM [MOLES/VOL UME] IN SERUM OR PLASMA 139 meq/L 136 - 145 11/25 Specimen Type: PLASMA Comment: No hemolysis noted. Ordering Provider: FREDDIE ALEXIS Report Released Date/Time: November 14, 2024 08:13 AM Reporting Lab: [facility] [place] [address] Performing Lab: [facility] DIVISION COMPREHE NSIVE METABOLI C PANEL POTASSIUM [MOLES/VOL UME] IN SERUM OR PLASMA 4.1 meq/L 3.5 - 5.0 11/25 Specimen Type: PLASMA Comment: No hemolysis noted. Ordering Provider: FREDDIE ALEXIS Report Released Date/Time: November 14, 2024 08:13 AM Reporting Lab: [facility] [place] [address] Performing Lab: [facility] DIVISION COMPREHE NSIVE METABOLI C PANEL CHLORIDE [MOLES/VOL UME] IN SERUM OR PLASMA 109 meq/L 98 - 107 11/25 H Specimen Type: PLASMA Comment: No hemolysis noted. Ordering Provider: FREDDIE ALEXIS Report Released Date/Time: November 14, 2024 08:13 AM Reporting Lab: [facility] [place] [address] Performing Lab: [facility] DIVISION COMPREHE NSIVE METABOLI C PANEL CARBON DIOXIDE, TOTAL [MOLES/VOL UME] IN SERUM OR PLASMA 21 meq/L 22 - 31 11/25 L Specimen Type: PLASMA Comment: No hemolysis noted. Ordering Provider: FREDDIE ALEXIS Report Released Date/Time: November 14, 2024 08:13 AM Reporting Lab: [facility] [place] [address] Performing Lab: [facility] DIVISION COMPREHE NSIVE METABOLI C PANEL CALCIUM [MASS/VOLU ME] IN SERUM OR PLASMA 9.3 mg/dL 8.4 - 10.4 11/25 Specimen Type: PLASMA Comment: No hemolysis noted. Ordering Provider: FREDDIE ALEXIS Report Released Date/Time: November 14, 2024 08:13 AM Reporting Lab: [facility] [place] [address] Performing Lab: [facility] DIVISION COMPREHE NSIVE METABOLI C PANEL PROTEIN [MASS/VOLU ME] IN SERUM OR PLASMA 6.9 g/dL 6.0 - 8.6 11/25 Specimen Type: PLASMA Comment: No hemolysis noted. Ordering Provider: FREDDIE ALEXIS Report Released Date/Time: November 14, 2024 08:13 AM Reporting Lab: [facility] [place] [address] Performing Lab: [facility] DIVISION COMPREHE NSIVE METABOLI C PANEL ALBUMIN [MASS/VOLU ME] IN SERUM OR PLASMA 4.2 g/dL 3.4 - 5.0 11/25 Specimen Type: PLASMA Comment: No hemolysis noted. Ordering Provider: FREDDIE ALEXIS Report Released Date/Time: November 14, 2024 08:13 AM Reporting Lab: [facility] [place] [address] Performing Lab: [facility] DIVISION COMPREHE NSIVE METABOLI C PANEL BILIRUBIN. TOTAL [MASS/VOLU ME] IN SERUM OR PLASMA 0.6 mg/dL 0.2 - 1.2 11/25 Specimen Type: PLASMA Comment: No hemolysis noted. Ordering Provider: FREDDIE ALEXIS Report Released Date/Time: November 14, 2024 08:13 AM Reporting Lab: [facility] [place] [address] Performing Lab: [facility] DIVISION COMPREHE NSIVE METABOLI C PANEL ALKALINE PHOSPHATAS E [ENZYMATIC ACTIVITY/V OLUME] IN SERUM OR PLASMA 81 U/L 40 - 150 11/25 Specimen Type: PLASMA Comment: No hemolysis noted. Ordering Provider: FREDDIE ALEXIS Report Released Date/Time: November 14, 2024 08:13 AM Reporting Lab: [facility] [place] [address] Performing Lab: [facility] DIVISION COMPREHE NSIVE METABOLI C PANEL ASPARTATE AMINOTRANS FERASE [ENZYMATIC ACTIVITY/V OLUME] IN SERUM OR PLASMA 23 U/L 5 - 34 11/25 Specimen Type: PLASMA Comment: No hemolysis noted. Ordering Provider: FREDDIE ALEXIS Report Released Date/Time: November 14, 2024 08:13 AM Reporting Lab: [facility] [place] [address] Performing Lab: [facility] DIVISION COMPREHE NSIVE METABOLI C PANEL ALANINE AMINOTRANS FERASE [ENZYMATIC ACTIVITY/V OLUME] IN SERUM OR PLASMA 24 U/L 8 - 40 11/25 Specimen Type: PLASMA Comment: No hemolysis noted. Ordering Provider: FREDDIE ALEXIS Report Released Date/Time: November 14, 2024 08:13 AM Reporting Lab: [facility] [place] [address] Performing Lab: [facility] DIVISION COMPREHE NSIVE METABOLI C PANEL GLOMERULAR FILTRATION RATE/1.73 SQ M.PREDICTE D [VOLUME RATE/AREA] IN SERUM, PLASMA OR BLOOD BY CREATININE -BASED FORMULA (CKD-EPI 2020) 56.33 60 11/25 Specimen Type: PLASMA Comment: No hemolysis noted. Ordering Provider: FREDDIE ALEXIS Report Released Date/Time: November 14, 2024 08:13 AM Reporting Lab: [facility] [place] [address] Performing Lab: [facility] [id number] [facility] CBC LEUKOCYTES [#/VOLUME] IN BLOOD BY AUTOMATED COUNT 10.3 10*3/uL 3.6 - 11.2 11/25 Specimen Type: BLOOD No comment entered. Ordering Provider: FREDDIE ALEXIS Report Released Date/Time: November 14, 2024 08:13 AM Reporting Lab: [facility] [place] [address] Performing Lab: [facility] [id number] [place] [address] CBC ERYTHROCYT ES [#/VOLUME] IN BLOOD BY AUTOMATED COUNT 4.05 10*6/uL 4.10 - 5.70 11/25 L Specimen Type: BLOOD No comment entered. Ordering Provider: FREDDIE ALEXIS Report Released Date/Time: November 14, 2024 08:13 AM Reporting Lab: [facility] [place] [address] Performing Lab: [facility] CBC HEMOGLOBIN [MASS/VOLU ME] IN BLOOD 12.7 g/dL 13.1 - 16.8 11/25 L Specimen Type: BLOOD No comment entered. Ordering Provider: FREDDIE ALEXIS Report Released Date/Time: November 14, 2024 08:13 AM Reporting Lab: [facility] [place] [address] Performing Lab: [facility] CBC HEMATOCRIT [VOLUME FRACTION] OF BLOOD 37.2 38.2 - 48.4 11/25 L Specimen Type: BLOOD No comment entered. Ordering Provider: FREDDIE ALEXIS Report Released Date/Time: November 14, 2024 08:13 AM Reporting Lab: [facility] [place] [address] Performing Lab: [facility] [place] [id number] DIVISION CBC MCV [ENTITIC VOLUME] BY AUTOMATED COUNT 91.9 fL 80.0 - 100.0 11/25 Specimen Type: BLOOD No comment entered. Ordering Provider: FREDDIE ALEXIS Report Released Date/Time: November 14, 2024 08:13 AM Reporting Lab: [facility] [place] [address] Performing Lab: [facility] CBC MCH [ENTITIC MASS] BY AUTOMATED COUNT 31.4 pg 27.0 - 34.0 11/25 Specimen Type: BLOOD No comment entered. Ordering Provider: FREDDIE ALEXIS Report Released Date/Time: November 14, 2024 08:13 AM Reporting Lab: [facility] [place] [address] Performing Lab: [facility] DIVISION CBC MCHC [MASS/VOLU ME] BY AUTOMATED COUNT 34.1 g/dL 33.0 - 36.0 11/25 Specimen Type: BLOOD No comment entered. Ordering Provider: FREDDIE ALEXIS Report Released Date/Time: November 14, 2024 08:13 AM Reporting Lab: [facility] [place] [address] Performing Lab: [facility] DIVISION CBC PLATELETS [#/VOLUME] IN BLOOD BY AUTOMATED COUNT 248 10*3/uL 150 - 400 11/25 Specimen Type: BLOOD No comment entered. Ordering Provider: FREDDIE ALEXIS Report Released Date/Time: November 14, 2024 08:13 AM Reporting Lab: [facility] [place] [address] Performing Lab: [facility] DIVISION CBC PLATELET MEAN VOLUME [ENTITIC VOLUME] IN BLOOD BY AUTOMATED COUNT 10.3 fL 7.5 - 11.2 11/25 Specimen Type: BLOOD No comment entered. Ordering Provider: FREDDIE ALEXIS Report Released Date/Time: November 14, 2024 08:13 AM Reporting Lab: [facility] [place] [address] Performing Lab: [facility] DIVISION CBC ERYTHROCYT E DISTRIBUTI ON WIDTH [RATIO] BY AUTOMATED COUNT 13.2 11.8 - 15.1 11/25 Specimen Type: BLOOD No comment entered. Ordering Provider: FREDDIE ALEXIS Report Released Date/Time: November 14, 2024 08:13 AM Reporting Lab: [facility] [place] [address] Performing Lab: [facility] DIVISION CBC LYMPHOCYTE S/100 LEUKOCYTES IN BLOOD BY AUTOMATED COUNT 29 11/25 Specimen Type: BLOOD No comment entered. Ordering Provider: FREDDIE ALEXIS Report Released Date/Time: November 14, 2024 08:13 AM Reporting Lab: [facility] [place] [address] Performing Lab: [facility] DIVISION CBC MONOCYTES/ 100 LEUKOCYTES IN BLOOD BY AUTOMATED COUNT 10 11/25 Specimen Type: BLOOD No comment entered. Ordering Provider: FREDDIE ALEXIS Report Released Date/Time: November 14, 2024 08:13 AM Reporting Lab: [facility] [place] [address] Performing Lab: [facility] [phone] DIVISION CBC NEUTROPHIL S/100 LEUKOCYTES IN BLOOD BY AUTOMATED COUNT 57 11/25 Specimen Type: BLOOD No comment entered. Ordering Provider: FREDDIE ALEXIS Report Released Date/Time: November 14, 2024 08:13 AM Reporting Lab: [facility] [place] [address] Performing Lab: [facility] DIVISION CBC EOSINOPHIL S/100 LEUKOCYTES IN BLOOD BY AUTOMATED COUNT 3 11/25 Specimen Type: BLOOD No comment entered. Ordering Provider: FREDDIE ALEXIS Report Released Date/Time: November 14, 2024 08:13 AM Reporting Lab: [facility] [place] [address] Performing Lab: [facility] DIVISION CBC BASOPHILS/ 100 LEUKOCYTES IN BLOOD BY AUTOMATED COUNT 1 11/25 Specimen Type: BLOOD No comment entered. Ordering Provider: FREDDIE ALEXIS Report Released Date/Time: November 14, 2024 08:13 AM Reporting Lab: [facility] [place] [address] Performing Lab: [facility] DIVISION CBC LYMPHOCYTE S [#/VOLUME] IN BLOOD BY AUTOMATED COUNT 3.01 10*3/uL 0.77 - 4.50 11/25 Specimen Type: BLOOD No comment entered. Ordering Provider: FREDDIE ALEXIS Report Released Date/Time: November 14, 2024 08:13 AM Reporting Lab: [facility] [place] [address] Performing Lab: [facility] DIVISION CBC MONOCYTES [#/VOLUME] IN BLOOD BY AUTOMATED COUNT 0.99 10*3/uL 0.19 - 0.80 11/25 H Specimen Type: BLOOD No comment entered. Ordering Provider: FREDDIE ALEXIS Report Released Date/Time: November 14, 2024 08:13 AM Reporting Lab: [facility] [place] [address] Performing Lab: [facility] DIVISION CBC NEUTROPHIL S [#/VOLUME] IN BLOOD BY AUTOMATED COUNT 5.82 10*3/uL 2.10 - 8.00 11/25 Specimen Type: BLOOD No comment entered. Ordering Provider: FREDDIE ALEXIS Report Released Date/Time: November 14, 2024 08:13 AM Reporting Lab: [facility] [place] [address] Performing Lab: [facility] DIVISION CBC EOSINOPHIL S [#/VOLUME] IN BLOOD BY AUTOMATED COUNT 0.30 10*3/uL 0.00 - 0.60 11/25 Specimen Type: BLOOD No comment entered. Ordering Provider: FREDDIE ALEXIS Report Released Date/Time: November 14, 2024 08:13 AM Reporting Lab: [facility] [place] [address] Performing Lab: [facility] DIVISION CBC BASOPHILS [#/VOLUME] IN BLOOD BY AUTOMATED COUNT 0.09 10*3/uL 0.00 - 0.20 11/25 Specimen Type: BLOOD No comment entered. Ordering Provider: FREDDIE ALEXIS Report Released Date/Time: November 14, 2024 08:13 AM Reporting Lab: [facility] [place] [address] Performing Lab: [facility] DIVISION URINALYS IS W/ CX REFLEX (STL-PB) COLOR OF URINE Light-Ye llow 11/13 Specimen Type: URINE No comment entered. Ordering Provider: FREDDIE ALEXIS Report Released Date/Time: November 13, 2024 10:49 AM Reporting Lab: [facility] [place] [address] Performing Lab: [facility] DIVISION URINALYS IS W/ CX REFLEX (STL-PB) BILIRUBIN. TOTAL [PRESENCE] IN URINE BY TEST STRIP Negative mg/dL 11/13 Specimen Type: URINE No comment entered. Ordering Provider: FREDDIE ALEXIS Report Released Date/Time: November 13, 2024 10:49 AM Reporting Lab: [facility] [place] [address] Performing Lab: [facility] DIVISION URINALYS IS W/ CX REFLEX (STL-PB) PH OF URINE BY TEST STRIP 6.0 5.0 - 8.0 11/13 Specimen Type: URINE No comment entered. Ordering Provider: FREDDIE ALEXIS Report Released Date/Time: November 13, 2024 10:49 AM Reporting Lab: [facility] [place] [id number] Performing Lab: [facility] DIVISION URINALYS IS W/ CX REFLEX (STL-PB) APPEARANCE OF URINE Clear 11/13 Specimen Type: URINE No comment entered. Ordering Provider: FREDDIE ALEXIS Report Released Date/Time: November 13, 2024 10:49 AM Reporting Lab: [facility] [place] [id number] Performing Lab: [facility] DIVISION URINALYS IS W/ CX REFLEX (STL-PB) NITRITE [PRESENCE] IN URINE BY TEST STRIP Negative mg/dL 11/13 Specimen Type: URINE No comment entered. Ordering Provider: FREDDIE ALEXIS Report Released Date/Time: November 13, 2024 10:49 AM Reporting Lab: [facility] [place] [address] Performing Lab: [facility] DIVISION URINALYS IS W/ CX REFLEX (STL-PB) GLUCOSE [MASS/VOLU ME] IN URINE BY TEST STRIP Normalmg /dL 11/13 Specimen Type: URINE No comment entered. Ordering Provider: FREDDIE ALEXIS Report Released Date/Time: November 13, 2024 10:49 AM Reporting Lab: [facility] [place] [address] Performing Lab: [facility] URINALYS IS W/ CX REFLEX (STL-PB) PROTEIN [MASS/VOLU ME] IN URINE BY TEST STRIP Negative mg/dL 11/13 Specimen Type: URINE No comment entered. Ordering Provider: FREDDIE ALEXIS Report Released Date/Time: November 13, 2024 10:49 AM Reporting Lab: [facility] [place] [address] Performing Lab: [facility] DIVISION URINALYS IS W/ CX REFLEX (STL-PB) URN.UROBIL INOGEN Normalmg /dL 11/13 Specimen Type: URINE No comment entered. Ordering Provider: FREDDIE ALEXIS Report Released Date/Time: November 13, 2024 10:49 AM Reporting Lab: [facility] [place] [address] Performing Lab: [facility] DIVISION URINALYS IS W/ CX REFLEX (STL-PB) HEMOGLOBIN [MASS/VOLU ME] IN URINE BY TEST STRIP Negative mg/dL 11/13 Specimen Type: URINE No comment entered. Ordering Provider: FREDDIE ALEXIS Report Released Date/Time: November 13, 2024 10:49 AM Reporting Lab: [facility] [place] [address] Performing Lab: [facility] DIVISION URINALYS IS W/ CX REFLEX (STL-PB) KETONES [MASS/VOLU ME] IN URINE BY TEST STRIP Negative mg/dL 11/13 Specimen Type: URINE No comment entered. Ordering Provider: FREDDIE ALEXIS Report Released Date/Time: November 13, 2024 10:49 AM Reporting Lab: [facility] [place] [address] Performing Lab: [facility] DIVISION URINALYS IS W/ CX REFLEX (STL-PB) URN.LEUK.E ST. Negative mg/dL 11/13 Specimen Type: URINE No comment entered. Ordering Provider: FREDDIE ALEXIS Report Released Date/Time: November 13, 2024 10:49 AM Reporting Lab: [facility] [place] [address] Performing Lab: [facility] DIVISION URINALYS IS W/ CX REFLEX (STL-PB) SPECIFIC GRAVITY OF URINE 1.022 11/13 Specimen Type: URINE No comment entered. Ordering Provider: FREDDIE ALEXIS Report Released Date/Time: November 13, 2024 10:49 AM Reporting Lab: [facility] [place] [address] Performing Lab: [facility] DIVISION MICRAL/C REAT PROFILE (STL) ALBUMIN [MASS/VOLU ME] IN URINE 6 mg/L 11/13 Specimen Type: URINE No comment entered. Ordering Provider: FREDDIE ALEXIS Report Released Date/Time: November 13, 2024 10:49 AM Reporting Lab: [facility] [place] [address] Performing Lab: [facility] DIVISION MICRAL/C REAT PROFILE (STL) ALBUMIN/CR EATININE [MASS RATIO] IN URINE 4 mg/g 0 - 29 11/13 Specimen Type: URINE No comment entered. Ordering Provider: FREDDIE ALEXIS Report Released Date/Time: November 13, 2024 10:49 AM Reporting Lab: [facility] [place] [address] Performing Lab: [facility] DIVISION MICRAL/C REAT PROFILE (STL) CREATININE [MASS/VOLU ME] IN URINE 153.8 mg/dL 63.0 - 166.0 11/13 Specimen Type: URINE No comment entered. Ordering Provider: FREDDIE ALEXIS Report Released Date/Time: November 13, 2024 10:49 AM Reporting Lab: [facility] [place] [address] Performing Lab: [facility] DIVISION LIPID PANEL (STL) CHOLESTERO L [MASS/VOLU ME] IN SERUM OR PLASMA 210 mg/dL 0 - 200 11/13 H Specimen Type: PLASMA Comment: No hemolysis noted. Ordering Provider: FREDDIE ALEXIS Report Released Date/Time: November 13, 2024 10:49 AM Reporting Lab: [facility] [place] [address] Performing Lab: [facility] LIPID PANEL (STL) TRIGLYCERI DE [MASS/VOLU ME] IN SERUM OR PLASMA 131 mg/dL 0 - 150 11/13 Specimen Type: PLASMA Comment: No hemolysis noted. Ordering Provider: FREDDIE ALEXIS Report Released Date/Time: November 13, 2024 10:49 AM Reporting Lab: [facility] [place] [address] Performing Lab: [facility] LIPID PANEL (STL) CHOLESTERO L IN LDL [MASS/VOLU ME] IN SERUM OR PLASMA BY CALCULACHADO N 141 mg/dL 11/13 Specimen Type: PLASMA Comment: No hemolysis noted. Ordering Provider: FREDDIE ALEXIS Report Released Date/Time: November 13, 2024 10:49 AM Reporting Lab: [facility] 1 [place] [address] Performing Lab: [facility] [address] LIPID PANEL (STL) CHOLESTERO L IN HDL [MASS/VOLU ME] IN SERUM OR PLASMA 43 mg/dL 40 11/13 Specimen Type: PLASMA Comment: No hemolysis noted. Ordering Provider: FREDDIE ALEXIS Report Released Date/Time: November 13, 2024 10:49 AM Reporting Lab: [facility] [place] [address] Performing Lab: [facility] DIVISION COMPREHE NSIVE METABOLI C PANEL CREATININE [MASS/VOLU ME] IN SERUM OR PLASMA 1.62 mg/dL 0.70 - 1.30 11/13 H Specimen Type: PLASMA Comment: No hemolysis noted. Ordering Provider: FREDDIE ALEXIS Report Released Date/Time: November 13, 2024 10:49 AM Reporting Lab: [facility] [place] [address] Performing Lab: [facility] DIVISION COMPREHE NSIVE METABOLI C PANEL UREA NITROGEN [MASS/VOLU ME] IN SERUM OR PLASMA 33.7 mg/dL 9.0 - 25.0 11/13 H Specimen Type: PLASMA Comment: No hemolysis noted. Ordering Provider: FREDDIE ALEXIS Report Released Date/Time: November 13, 2024 10:49 AM Reporting Lab: [facility] [place] [address] Performing Lab: [facility] DIVISION COMPREHE NSIVE METABOLI C PANEL GLUCOSE [MASS/VOLU ME] IN SERUM OR PLASMA 100 mg/dL 72 - 99 11/13 H Specimen Type: PLASMA Comment: No hemolysis noted. Ordering Provider: FREDDIE ALEXIS Report Released Date/Time: November 13, 2024 10:49 AM Reporting Lab: [facility] [place] [address] Performing Lab: [facility] DIVISION COMPREHE NSIVE METABOLI C PANEL SODIUM [MOLES/VOL UME] IN SERUM OR PLASMA 142 meq/L 136 - 145 11/13 Specimen Type: PLASMA Comment: No hemolysis noted. Ordering Provider: FREDDIE ALEXIS Report Released Date/Time: November 13, 2024 10:49 AM Reporting Lab: [facility] [place] [address] Performing Lab: [facility] DIVISION COMPREHE NSIVE METABOLI C PANEL POTASSIUM [MOLES/VOL UME] IN SERUM OR PLASMA 5.3 meq/L 3.5 - 5.0 11/13 H Specimen Type: PLASMA Comment: No hemolysis noted. Ordering Provider: FREDDIE ALEXIS ICA Priti Report Released Date/Time: November 13, 2024 10:49 AM Reporting Lab: [facility] [place] [address] Performing Lab: [facility] DIVISION COMPREHE NSIVE METABOLI C PANEL CHLORIDE [MOLES/VOL UME] IN SERUM OR PLASMA 111 meq/L 98 - 107 11/13 H Specimen Type: PLASMA Comment: No hemolysis noted. Ordering Provider: FREDDIE ALEXIS ICA Priti Report Released Date/Time: November 13, 2024 10:49 AM Reporting Lab: [facility] [place] [address] Performing Lab: [facility] DIVISION COMPREHE NSIVE METABOLI C PANEL CARBON DIOXIDE, TOTAL [MOLES/VOL UME] IN SERUM OR PLASMA 22 meq/L 22 - 31 11/13 Specimen Type: PLASMA Comment: No hemolysis noted. Ordering Provider: FREDDIE ALEXIS ICA Priti Report Released Date/Time: November 13, 2024 10:49 AM Reporting Lab: [facility] [place] [address] Performing Lab: [facility] DIVISION COMPREHE NSIVE METABOLI C PANEL CALCIUM [MASS/VOLU ME] IN SERUM OR PLASMA 9.6 mg/dL 8.4 - 10.4 11/13 Specimen Type: PLASMA Comment: No hemolysis noted. Ordering Provider: FREDDIE ALEXIS Report Released Date/Time: November 13, 2024 10:49 AM Reporting Lab: [facility] [place] [address] Performing Lab: [facility] DIVISION COMPREHE NSIVE METABOLI C PANEL PROTEIN [MASS/VOLU ME] IN SERUM OR PLASMA 7.3 g/dL 6.0 - 8.6 11/13 Specimen Type: PLASMA Comment: No hemolysis noted. Ordering Provider: FREDDIE ALEXIS Report Released Date/Time: November 13, 2024 10:49 AM Reporting Lab: [facility] [place] [address] Performing Lab: [facility] DIVISION COMPREHE NSIVE METABOLI C PANEL ALBUMIN [MASS/VOLU ME] IN SERUM OR PLASMA 4.5 g/dL 3.4 - 5.0 11/13 Specimen Type: PLASMA Comment: No hemolysis noted. Ordering Provider: FREDDIE ALEXIS Report Released Date/Time: November 13, 2024 10:49 AM Reporting Lab: [facility] [place] [address] Performing Lab: [facility] DIVISION COMPREHE NSIVE METABOLI C PANEL BILIRUBIN. TOTAL [MASS/VOLU ME] IN SERUM OR PLASMA 0.6 mg/dL 0.2 - 1.2 11/13 Specimen Type: PLASMA Comment: No hemolysis noted. Ordering Provider: FREDDIE ALEXIS Report Released Date/Time: November 13, 2024 10:49 AM Reporting Lab: [facility] [place] [address] Performing Lab: [facility]1 [place] [id number] DIVISION COMPREHE NSIVE METABOLI C PANEL ALKALINE PHOSPHATAS E [ENZYMATIC ACTIVITY/V OLUME] IN SERUM OR PLASMA 84 U/L 40 - 150 11/13 Specimen Type: PLASMA Comment: No hemolysis noted. Ordering Provider: FREDDIE ALEXIS Report Released Date/Time: November 13, 2024 10:49 AM Reporting Lab: [facility] [place] [address] Performing Lab: [facility] DIVISION COMPREHE NSIVE METABOLI C PANEL ASPARTATE AMINOTRANS FERASE [ENZYMATIC ACTIVITY/V OLUME] IN SERUM OR PLASMA 40 U/L 5 - 34 11/13 H Specimen Type: PLASMA Comment: No hemolysis noted. Ordering Provider: FREDDIE ALEXIS Report Released Date/Time: November 13, 2024 10:49 AM Reporting Lab: [facility] [place] [address] Performing Lab: [facility] DIVISION COMPREHE NSIVE METABOLI C PANEL ALANINE AMINOTRANS FERASE [ENZYMATIC ACTIVITY/V OLUME] IN SERUM OR PLASMA 63 U/L 8 - 40 11/13 H Specimen Type: PLASMA Comment: No hemolysis noted. Ordering Provider: FREDDIE ALEXIS Report Released Date/Time: November 13, 2024 10:49 AM Reporting Lab: [facility] [place] [address] Performing Lab: [facility] DIVISION COMPREHE NSIVE METABOLI C PANEL GLOMERULAR FILTRATION RATE/1.73 SQ M.PREDICTE D [VOLUME RATE/AREA] IN SERUM, PLASMA OR BLOOD BY CREATININE -BASED FORMULA (CKD-EPI 2020) 45.95 60 11/13 Specimen Type: PLASMA Comment: No hemolysis noted. Ordering Provider: FREDDIE ALEXIS Report Released Date/Time: November 13, 2024 10:49 AM Reporting Lab: [facility] [place] [phone] Performing Lab: [facility]1 [facility] [phone] [place] [address] DIVISION HGA1C HEMOGLOBIN A1C/HEMOGL OBIN.TOTAL IN BLOOD 5.4 4.0 - 6.0 11/13 Specimen Type: BLOOD No comment entered. Ordering Provider: FREDDIE ALEXIS Report Released Date/Time: November 13, 2024 10:49 AM Reporting Lab: [facility] [place] [address] Performing Lab: [facility] [phone] IRON/TIB C PROFILE IRON BINDING CAPACITY [MASS/VOLU ME] IN SERUM OR PLASMA 340 ug/dL 250 - 450 11/13 Specimen Type: SERUM No comment entered. Ordering Provider: FREDDIE ALEXIS Report Released Date/Time: November 13, 2024 10:49 AM Reporting Lab: [facility] [address] [place] [phone] Performing Lab: [address] [phone] [facility] IRON/TIB C PROFILE TRANSFERRI N [MASS/VOLU ME] IN SERUM OR PLASMA 272 mg/dL 163 - 344 11/13 Specimen Type: SERUM No comment entered. Ordering Provider: FREDDIE ALEXIS Report Released Date/Time: November 13, 2024 10:49 AM Reporting Lab: [facility] [address] [place] [phone] Performing Lab: [address] [phone] [facility] IRON/TIB C PROFILE IRON SATURATION [MASS FRACTION] IN SERUM OR PLASMA 24 20 - 50 11/13 Specimen Type: SERUM No comment entered. Ordering Provider: FREDDIE ALEXIS Report Released Date/Time: November 13, 2024 10:49 AM Reporting Lab: [address] [phone] Performing Lab: [address] [phone] [facility] IRON/TIB C PROFILE IRON [MASS/VOLU ME] IN SERUM OR PLASMA 81 ug/dL 65 - 175 11/13 Specimen Type: SERUM No comment entered. Ordering Provider: FREDDIE ALEXIS Report Released Date/Time: November 13, 2024 10:49 AM Reporting Lab: [address] [phone] Performing Lab: [address] [phone] [place] [address] CBC LEUKOCYTES [#/VOLUME] IN BLOOD BY AUTOMATED COUNT 12.5 10*3/uL 3.6 - 11.2 11/13 H Specimen Type: BLOOD No comment entered. Ordering Provider: FREDDIE ALEXIS Report Released Date/Time: November 13, 2024 10:49 AM Reporting Lab: [facility] [place] [phone] Performing Lab: [facility] [phone] [place] [address] DIVISION CBC ERYTHROCYT ES [#/VOLUME] IN BLOOD BY AUTOMATED COUNT 4.07 10*6/uL 4.10 - 5.70 11/13 L Specimen Type: BLOOD No comment entered. Ordering Provider: FREDDIE ALEXIS Report Released Date/Time: November 13, 2024 10:49 AM Reporting Lab: [facility] [phone] Performing Lab: [facility] [phone] [place] [address] DIVISION CBC HEMOGLOBIN [MASS/VOLU ME] IN BLOOD 12.8 g/dL 13.1 - 16.8 05/01 /2025 L Specimen Type: BLOOD No comment entered. Ordering Provider: FREDDIE ALEXIS Report Released Date/Time: November 13, 2024 10:49 AM Reporting Lab: [facility] [place] [address] Performing Lab: [facility] DIVISION CBC HEMATOCRIT [VOLUME FRACTION] OF BLOOD 39.0 38.2 - 48.4 11/13 Specimen Type: BLOOD No comment entered. Ordering Provider: FREDDIE ALEXIS Report Released Date/Time: November 13, 2024 10:49 AM Reporting Lab: [facility] [place] [address] Performing Lab: [facility] CBC MCV [ENTITIC VOLUME] BY AUTOMATED COUNT 95.8 fL 80.0 - 100.0 11/13 Specimen Type: BLOOD No comment entered. Ordering Provider: FREDDIE ALEXIS Report Released Date/Time: November 13, 2024 10:49 AM Reporting Lab: [facility] [place] [address] Performing Lab: [facility] DIVISION CBC MCH [ENTITIC MASS] BY AUTOMATED COUNT 31.4 pg 27.0 - 34.0 11/13 Specimen Type: BLOOD No comment entered. Ordering Provider: FREDDIE ALEXIS Report Released Date/Time: November 13, 2024 10:49 AM Reporting Lab: [facility] [place] [address] Performing Lab: [facility] DIVISION CBC MCHC [MASS/VOLU ME] BY AUTOMATED COUNT 32.8 g/dL 33.0 - 36.0 11/13 L Specimen Type: BLOOD No comment entered. Ordering Provider: FREDDIE ALEXIS Report Released Date/Time: November 13, 2024 10:49 AM Reporting Lab: [facility] [place] [address] Performing Lab: [facility] CBC PLATELETS [#/VOLUME] IN BLOOD BY AUTOMATED COUNT 273 10*3/uL 150 - 400 11/13 Specimen Type: BLOOD No comment entered. Ordering Provider: FREDDIE ALEXIS Report Released Date/Time: November 13, 2024 10:49 AM Reporting Lab: [facility] [place] [address] Performing Lab: [facility] CBC PLATELET MEAN VOLUME [ENTITIC VOLUME] IN BLOOD BY AUTOMATED COUNT 10.5 fL 7.5 - 11.2 11/13 Specimen Type: BLOOD No comment entered. Ordering Provider: FREDDIE ALEXIS Report Released Date/Time: November 13, 2024 10:49 AM Reporting Lab: [facility] [place] [address] Performing Lab: [facility] DIVISION CBC ERYTHROCYT E DISTRIBUTI ON WIDTH [RATIO] BY AUTOMATED COUNT 13.2 11.8 - 15.1 11/13 Specimen Type: BLOOD No comment entered. Ordering Provider: FREDDIE ALEXIS Report Released Date/Time: November 13, 2024 10:49 AM Reporting Lab: [facility] [place] [address] Performing Lab: [facility] DIVISION CBC PLATELETS RETICULATE D/100 PLATELETS IN BLOOD BY AUTOMATED COUNT 3.6 1.0 - 7.0 11/13 Specimen Type: BLOOD No comment entered. Ordering Provider: FREDDIE ALEXIS Report Released Date/Time: November 13, 2024 10:49 AM Reporting Lab: [facility] [place] [address] Performing Lab: [facility] DIVISION CBC NUCLEATED ERYTHROCYT ES/100 LEUKOCYTES [RATIO] IN BLOOD BY AUTOMATED COUNT 0 11/13 Specimen Type: BLOOD No comment entered. Ordering Provider: FREDDIE ALEXIS Report Released Date/Time: November 13, 2024 10:49 AM Reporting Lab: [facility] [place] [address] Performing Lab: [facility] DIVISION CBC SEGMENTED NEUTROPHIL S/100 LEUKOCYTES IN BLOOD BY MANUAL COUNT 42 44 - 80 11/13 Specimen Type: BLOOD No comment entered. Ordering Provider: FREDDIE ALEXIS Report Released Date/Time: November 13, 2024 10:49 AM Reporting Lab: [facility] [place] [address] Performing Lab: [facility] DIVISION CBC BAND FORM NEUTROPHIL S/100 LEUKOCYTES IN BLOOD BY MANUAL COUNT 1 0 - 7 11/13 Specimen Type: BLOOD No comment entered. Ordering Provider: FERDDIE ALEXIS Report Released Date/Time: November 13, 2024 10:49 AM Reporting Lab: [facility] [place] [address] Performing Lab: [facility] DIVISION CBC MONOCYTES/ 100 LEUKOCYTES IN BLOOD BY AUTOMATED COUNT 3 4 - 8 11/13 Specimen Type: BLOOD No comment entered. Ordering Provider: FREDDIE ALEXIS Report Released Date/Time: November 13, 2024 10:49 AM Reporting Lab: [facility] [place] [address] Performing Lab: [facility] DIVISION CBC EOSINOPHIL S/100 LEUKOCYTES IN BLOOD BY MANUAL COUNT 2 0 - 8 11/13 Specimen Type: BLOOD No comment entered. Ordering Provider: FREDDIE ALEXIS Report Released Date/Time: November 13, 2024 10:49 AM Reporting Lab: [facility] [place] [address] Performing Lab: [facility] DIVISION CBC BASOPHILS/ 100 LEUKOCYTES IN BLOOD BY MANUAL COUNT 1 0 - 3 11/13 Specimen Type: BLOOD No comment entered. Ordering Provider: FREDDIE ALEXIS Report Released Date/Time: November 13, 2024 10:49 AM Reporting Lab: [facility] [place] [address] Performing Lab: [facility] DIVISION CBC METAMYELOC YTES/100 LEUKOCYTES IN BLOOD BY MANUAL COUNT 1 11/13 Specimen Type: BLOOD No comment entered. Ordering Provider: FREDDIE ALEXIS Report Released Date/Time: November 13, 2024 10:49 AM Reporting Lab: [facility] [place] [address] Performing Lab: [facility] DIVISION CBC MYELOCYTES /100 LEUKOCYTES IN BLOOD 1 11/13 Specimen Type: BLOOD No comment entered. Ordering Provider: FREDDIE ALEXIS Report Released Date/Time: November 13, 2024 10:49 AM Reporting Lab: [facility] [place] [address] Performing Lab: [facility] DIVISION CBC PLATELET ADEQUACY [PRESENCE] IN BLOOD BY LIGHT MICROSCOPY ADEQUATE 11/13 Specimen Type: BLOOD No comment entered. Ordering Provider: FREDDIE ALEXIS Report Released Date/Time: November 13, 2024 10:49 AM Reporting Lab: [facility] [place] [address] Performing Lab: [facility] CBC ANISOCYTOS IS [PRESENCE] IN BLOOD BY LIGHT MICROSCOPY 1+ 11/13 Specimen Type: BLOOD No comment entered. Ordering Provider: FREDDIE ALEXIS Report Released Date/Time: November 13, 2024 10:49 AM Reporting Lab: [facility] [place] [address] Performing Lab: [facility] DIVISION CBC POIKILOCYT OSIS [PRESENCE] IN BLOOD BY LIGHT MICROSCOPY 1+ 11/13 Specimen Type: BLOOD No comment entered. Ordering Provider: FREDDIE ALEXIS Report Released Date/Time: November 13, 2024 10:49 AM Reporting Lab: [facility] [place] [address] Performing Lab: [facility] DIVISION CBC POLYCHROMA HATTIE [PRESENCE] IN BLOOD BY LIGHT MICROSCOPY 1+ 11/13 Specimen Type: BLOOD No comment entered. Ordering Provider: FREDDIE ALEXIS Report Released Date/Time: November 13, 2024 10:49 AM Reporting Lab: [facility] [place] [address] Performing Lab: [facility] [place] [id number] DIVISION CBC LYMPHOCYTE S/100 LEUKOCYTES IN BLOOD BY MANUAL COUNT 41 20 - 40 11/13 Specimen Type: BLOOD No comment entered. Ordering Provider: FREDDIE ALEXIS Report Released Date/Time: November 13, 2024 10:49 AM Reporting Lab: [facility] [place] [address] Performing Lab: [facility] DIVISION CBC VARIANT LYMPHOCYTE S/100 LEUKOCYTES IN BLOOD BY MANUAL COUNT 8 0 - 5 11/13 Specimen Type: BLOOD No comment entered. Ordering Provider: FREDDIE ALEXIS Report Released Date/Time: November 13, 2024 10:49 AM Reporting Lab: [facility] [place] [address] Performing Lab: [facility] DIVISION CBC IMMATURE GRANULOCYT ES [#/VOLUME] IN BLOOD BY AUTOMATED COUNT 0.38 10*3/uL 0.00 - 0.05 11/13 H Specimen Type: BLOOD No comment entered. Ordering Provider: FREDDIE ALEXIS Report Released Date/Time: November 13, 2024 10:49 AM Reporting Lab: [facility] [place] [address] Performing Lab: [facility] DIVISION CBC BASOPHILS [#/VOLUME] IN BLOOD BY MANUAL COUNT 0.13 10*3/uL 0.00 - 0.20 11/13 Specimen Type: BLOOD No comment entered. Ordering Provider: FREDDIE ALEXIS Report Released Date/Time: November 13, 2024 10:49 AM Reporting Lab: [facility] [place] [address] Performing Lab: [facility] DIVISION CBC EOSINOPHIL S [#/VOLUME] IN BLOOD BY MANUAL COUNT 0.25 10*3/uL 0.00 - 0.60 11/13 Specimen Type: BLOOD No comment entered. Ordering Provider: FREDDIE ALEXIS Report Released Date/Time: November 13, 2024 10:49 AM Reporting Lab: [facility] [place] [address] Performing Lab: [facility] DIVISION CBC MONOCYTES [#/VOLUME] IN BLOOD BY MANUAL COUNT 0.38 10*3/uL 0.19 - 0.80 11/13 Specimen Type: BLOOD No comment entered. Ordering Provider: FREDDIE ALEXIS Report Released Date/Time: November 13, 2024 10:49 AM Reporting Lab: [facility] [place] [address] Performing Lab: [facility] DIVISION CBC LYMPHOCYTE S [#/VOLUME] IN BLOOD BY MANUAL COUNT 6.13 10*3/uL 0.77 - 4.50 11/13 H Specimen Type: BLOOD No comment entered. Ordering Provider: FREDDIE ALEXIS Report Released Date/Time: November 13, 2024 10:49 AM Reporting Lab: [facility] [place] [address] Performing Lab: [facility] DIVISION CBC NEUTROPHIL S [#/VOLUME] IN BLOOD BY MANUAL COUNT 5.25 10*3/uL 2.10 - 8.00 11/13 Specimen Type: BLOOD No comment entered. Ordering Provider: FREDDIE ALEXIS Report Released Date/Time: November 13, 2024 10:49 AM Reporting Lab: [facility] [id number] Performing Lab: [facility] [id number] [facility] B12 COBALAMIN (VITAMIN B12) [MASS/VOLU ME] IN SERUM OR PLASMA 523 pg/mL 213 - 816 11/13 Specimen Type: SERUM Comment: The listed sex of this patient may not be a typical indication for this test. Therefore, reference ranges or interpretiv e criteria listed may not be valid. Clinical correlation suggested. Ordering Provider: FREDDIE ALEXIS Report Released Date/Time: November 13, 2024 10:49 AM Reporting Lab: [facility] [id number] Performing Lab: [facility] [id number] [place] [address] Vital Signs Combined list of inpatient and outpatient Vital Signs from Department of Defense and Veterans Affairs, ranging from 12 months to all on record, depending upon the facility. Vital Sign Value Date Comments Source SYSTOLIC BLOOD PRESSURE 158 11/13/2024 10:18:01 [facility] DIASTOLIC BLOOD PRESSURE 84 11/13/2024 10:18:01 [facility] PULSE OXIMETRY 99 11/13/2024 10:18:01 [facility] WEIGHT 188.8 11/13/2024 10:18:01 [facility] BMI 31 kg/m2 11/13/2024 10:18:01 [facility] PAIN 0 11/13/2024 10:18:01 [facility] TEMPERATURE 98 11/13/2024 10:18:01 [facility] PULSE 61 11/13/2024 10:18:01 [facility] RESPIRATION 16 11/13/2024 10:18:01 [facility] SYSTOLIC BLOOD PRESSURE 112 08/12/2024 08:47:27 [facility] DIASTOLIC BLOOD PRESSURE 73 08/12/2024 08:47:27 [facility] PULSE OXIMETRY 98 08/12/2024 08:47:27 S Maryellen [facility] WEIGHT 184 08/12/2024 08:47:27 [facility] Liset [facility] BMI 30 kg/m2 08/12/2024 08:47:27 [facility] PAIN 0 08/12/2024 08:47:27 [facility] TEMPERATURE 97.7 08/12/2024 08:47:27 [facility] PULSE 68 08/12/2024 08:47:27 [facility] RESPIRATION 16 08/12/2024 08:47:27 [facility] SYSTOLIC BLOOD PRESSURE 147 05/15/2024 10:12:17 [facility] DIASTOLIC BLOOD PRESSURE 84 05/15/2024 10:12:17 [facility] PULSE OXIMETRY 97 05/15/2024 10:12:17 Katy VIDAL [facility] WEIGHT 191.1 05/15/2024 10:12:17 [facility] BMI 31 kg/m2 05/15/2024 10:12:17 [facility] PAIN 3 05/15/2024 10:12:17 [facility] TEMPERATURE 98.2 05/15/2024 10:12:17 [facility] PULSE 83 05/15/2024 10:12:17 [facility] RESPIRATION 16 05/15/2024 10:12:17 [facility] Encounters Combined list of: 1) Encounters from Department of Veterans Affairs facilities going backup to the last 18 months, not all VA inpatient encounters are included; 2) Encounters from the Department of Defense facilities going backup to 280 months. Location Location Details Encounter Type Encounter Number Reason For Visit Attending Provider ADM Date DC Date Status Disposition Source [facility] Outpatient Encounter [id number] 08/16 [facility] OFFICE O/P EST LOW 20 MIN [id number] Diagnos is: ICD-10- CM H81.11 Benign paroxys mal vertigo , right ear SEAN ALEXIS 08/21 [facility] FITTING/CH ECKING [id number] Diagnos is: ICD-10- CM H90.3 Sensori neural hearing loss, bilater al VEST,NATASHA A 08/24 [facility] TYMPANOMET RY & REFLEX THRESH [id number] Diagnos is: ICD-10- CM H90.3 Sensori neural hearing loss, bilater al VEST,NATASHA A 08/24 [facility] Outpatient Encounter [id number] LALITHA JASON A 10/11 [facility] OFFICE O/P EST MOD 30 MIN [id number] Diagnos is: ICD-10- CM Z00.00 Encntr for general adult medical exam w/o abnorma l finding s SEAN ALEXIS 10/17 [facility] Outpatient Encounter [id number] 12/25 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AR[facility] AID CHECK BOTH EARS [id number] Diagnos is: ICD-10- CM H90.3 Sensori neural hearing loss, bilater al NATASHA FROST A 06/23 [facility] OFFICE O/P EST LOW 20 MIN [id number] Diagnos is: ICD-10- CM S66.912 A Strain of unsp musc/fa sc/tend at wrs/hnd lv, left hand, init SEAN ALEXIS K 08/12 [facility] Outpatient Encounter [id number] 08/12 [facility] Outpatient Encounter [id number] 08/28 [facility] Outpatient Encounter [id number] LALITHA JASON ORGANESH A 09/22 [facility] Outpatient Encounter [id number] KANU HERNANDEZ 11/04 [facility] Outpatient Encounter [id number] LALITHA JASON 11/04 [facility] N [facility] OFFICE O/P EST MOD 30 MIN [id number] Diagnos is: ICD-10- CM Z00.00 Encntr for general adult medical exam w/o abnorma l finding s SEAN ALEXIS AUGUSTINE K 11/13 [facility] Outpatient Encounter [id number] 11/18 [facility] Outpatient Encounter [id number] 12/05 [facility] Outpatient Encounter [id number] 12/10 [facility] Social History Combined list of available smoking, tobacco, and other social history from Department of Defense and [facility] Affairs facilities. Social History Type Response Date Comment Sourc e Tobacco smoking status NHIS RI-TOBACCO NEVER USED CIGARETTES 11/13/2024 [facility] History of tobacco use RI-TOBACCO NEVER USED OTHER TYPE 11/13/2024 [facility] History of tobacco use VA-TOBACCO NEVER USED 10/18/2023 [facility] History of tobacco use RI-TOBACCO FORMER USER 10/13/2022 [facility] History of tobacco use VA-TOBACCO NEVER USED 10/13/2021 [facility] History of tobacco use RI-TOBACCO QUIT 15 YRS OR MORE 09/22/2020 [facility] Plan of Care List of future care activities from Department of [facility] Affairs facilities. Additional future care activities may be listed in the Assessment and Plan section. Date/Time Care Activity Care Activity Detail Facili ty 12/22/2024 AMBULATORY - NONE AMBULATORY - NONE [facility]
== END 2024-12-22 07:52 | disposition home or self-care (01) ==
DX: Z01.89 Encounter for other specified special examinations (principal); K86.2 Cyst of pancreas; K86.89 Other specified diseases of pancreas; N28.1 Cyst of kidney, acquired; J98.4 Other disorders of lung
CPT/HCPCS: 74183; A9577

== ENCOUNTER 2025-06-23 12:06 | Outpatient (CLI) | payer MEDICARE, SELFPAY ==
[2025-06-23 12:32] LABS: Hematocrit 41.8 % (42.0-52.0); Hemoglobin 14.4 g/dL (14.0-18.0); Mean Corpuscular HGB Conc 34.4 g/dl (32-36); Mean Corpuscular Hemoglobin 31.6 pg (26-34); Mean Corpuscular Volume 91.7 fl (80-100); Platelet Count Result 230 k/mm3 (150-375); Red Blood Count 4.56 M/mm3 (4.6-6.20); White Blood Count 11.5 K/mm3 (4.5-10.0)
[2025-06-23 13:28] LABS: Prostate Specific Antigen 2.7 ng/mL (< OR = 4.0); Thyroid Stimulating Hormone 1.510 uIU/mL (0.465-4.680)
== END 2025-06-23 12:07 | disposition home or self-care (01) ==
LOC: ANHLAB 12:08
PROVIDERS: PCP Family Medicine; Visit Provider Nurse Practitioner Family
DX: R06.00 Dyspnea, unspecified (principal); Z12.5 Encounter for screening for malignant neoplasm of prostate; I10 Essential (primary) hypertension; G89.29 Other chronic pain; M54.42 Lumbago with sciatica, left side
CPT/HCPCS: 36415; 84153; 84443; 85027; G0103